=== PATIENT | male | born 1945 | race Caucasian/White ===

== ENCOUNTER 2016-08-09 20:45 | Emergency (ER) | payer MEDICARE, BC ==
[2016-08-09] MEDS ORDERED: Sodium Chloride 0.9% 10 ML Syringe FLUSH PRN (21:18)
[2016-08-09] MEDS ORDERED: Sodium Chloride 0.9% 1,000 ML IV ONE (21:18)
[2016-08-09] MEDS ORDERED: HYDROmorphone 0.5 MG/0.5 ML Syringe IVPUSH ONE (21:21)
--- NOTE | 2016-08-09 21:50 | EDM.PDOC ---
ED HPI GENERAL MEDICAL PROBLEM - General Time Seen by Provider: 08/09/16 20:50 Left Flank Pain Score (Numeric/FACES): 10 - Related Data Allergies Allergy/AdvReac Type Severity Reaction Status Date / Time No Known Allergies Allergy Verified 08/09/16 20:58 Home Meds: Home Meds Amantadine HCl [Amantadine] 100 mg PO BID 12/10/15 [History] Aspirin 325 mg PO DAILY 12/10/15 [History] Carbidopa/Levodopa [Sinemet 25-100 mg] 1 tab PO TIDM 12/10/15 [History] Carbidopa/Levodopa [Sinemet CR 50-200] 1 tab PO BID 12/10/15 [History] Chlorhexidine Gluconate [Peridex 0.12% Rinse] 10 ml MM BID 12/10/15 [History] Cholecalciferol (Vitamin D3) [Vitamin D3] 1,000 units PO DAILY 12/10/15 [History ] ClonazePAM [KlonoPIN] 0.5 mg PO BEDTIME 12/10/15 [History] Cyanocobalamin (Vitamin B-12) [Vitamin B12] 2,500 mcg PO DAILY 12/10/15 [History ] Levothyroxine [Synthroid] 100 mcg PO ACBREAKFAST 12/10/15 [History] Pramipexole Di-HCl [Mirapex] 0.75 mg PO BID 12/10/15 [History] Sertraline [Zoloft] 50 mg PO DAILY 12/10/15 [History] Vitamin B6-pyridOXINE 100 mg PO DAILY 12/10/15 [History] Vitamin E 400 unit PO BID 12/10/15 [History] Docusate Sodium/Sennosides [Senna Plus] 1 tab PO BID PRN #40 tablet 12/12/15 [Rx ] Cyclobenzaprine [Flexeril] 10 mg PO TID PRN #20 tablet 05/26/16 [Rx] Hydrocodone/Acetaminophen [Hydrocodon-Acetaminophen 5-325] 1 - 2 each PO Q6HR PRN #20 tablet 05/26/16 [Rx] Magnesium Citrate [Citrate of Magnesia] 296 ml PO ONETIME #1 bottle 08/09/16 [Rx ] Magnesium Citrate [Citrate of Magnesia] 296 ml PO ONETIME #1 bottle 08/09/16 [Rx ] Past Medical History Respiratory History: Reports: Sleep apnea Gastrointestinal History: Reports: Chronic constipation Musculoskeletal History: Reports: Back pain, chronic Neurological History: Reports: Parkinson's - Infectious Disease History Infectious Disease History: Reports: Chicken pox, Measles - Past Surgical History HEENT Surgical History: Reports: Cataract surgery Musculoskeletal Surgical History: Reports: Other (see below) Other Musculoskeletal Surgeries/Procedures:: recent back surgery Dec 2015 Social & Family History - Tobacco Use Smoking Status *Q: Never Smoker Years of Tobacco use: 20 Packs/Tins Daily: 0.4 Second Hand Smoke Exposure: No - Caffeine Use Caffeine Use: Reports: Coffee, Soda - Recreational Drug Use Recreational Drug Use: No ED ROS GENERAL - Review of Systems Review Of Systems: See Below Constitutional: Denies: fever, chills GI/Abdominal: Denies: Abdominal pain, Constipation, Diarrhea, Hematochezia, Melena, Nausea, Vomiting : Reports: flank pain (left), frequency. Denies: hematuria ED EXAM, RENAL/ - Physical Exam Exam: See Below Exam Limited By: No limitations General Appearance: alert, WD/WN, no apparent distress Nose: normal inspection Throat/Mouth: Normal inspection Respiratory/Chest: no respiratory distress, lungs clear, normal breath sounds Cardiovascular: normal peripheral pulses, regular rate, rhythm, no murmur GI/Abdominal: Soft, Non-Tender, Distended Neurological: alert, oriented, slow to respond Psychiatric: normal affect, normal mood Skin Exam: Warm, Dry Course - Vital Signs Last Recorded V/S: Last Vital Signs Temp 36.4 C 08/09/16 20:59 Pulse 57 L 08/09/16 23:05 Resp 16 08/09/16 20:59 BP 123/77 08/09/16 23:05 Pulse Ox 97 08/09/16 23:05 - Orders/Labs/Meds Labs: Laboratory Tests 08/09/16 08/09/16 08/09/16 Range/Units 21:40 21:40 22:38 WBC 10.91 H (4.23-9.07) K/mm3 RBC 4.34 L (4.63-6.08) M/mm3 Hgb 13.9 (13.7-17.5) gm/L Hct 40.9 (40.1-51.0) % MCV 94.2 H (79.0-92.2) fl MCH 32.0 (25.7-32.2) pg MCHC 34.0 (32.2-35.5) g/dl RDW Std Deviation 46.1 H (35.1-43.9) fL Plt Count 171 (163-337) K/mm3 MPV 8.9 L (9.4-12.3) fl Neut % (Auto) 52.0 (34.0-67.9) % Lymph % (Auto) 31.5 (21.8-53.1) % [place] % (Auto) 14.7 H (5.3-12.2) % Eos % (Auto) 1.1 (0.8-7.0) Baso % (Auto) 0.2 (0.1-1.2) % Neut # (Auto) 5.68 H (1.78-5.38) K/mm3 Lymph # (Auto) 3.44 (1.32-3.57) K/mm3 [place] # (Auto) 1.60 H (0.30-0.82) K/mm3 Eos # (Auto) 0.12 (0.04-0.54) K/mm3 Baso # (Auto) 0.02 (0.01-0.08) K/mm3 Manual Slide Review Normal smear Sodium 141 (136-145) mEq/L Potassium 4.0 (3.5-5.1) mEq/L Chloride 108 H (98-107) mEq/L Carbon Dioxide 25 (21-32) mEq/L Anion Gap 12.0 (5-15) BUN 28 H (7-18) mg/dL Creatinine 1.0 (0.7-1.3) mg/dL Est Cr Clr Drug Dosing 68.94 mL/min Estimated GFR (MDRD) > 60 (>60) mL/min BUN/Creatinine Ratio 28.0 H (14-18) Glucose 135 H (83-115) mg/dL Calcium 8.8 (8.5-10.1) mg/dL Total Bilirubin 0.4 (0.2-1.0) mg/dL AST 24 (15-37) U/L ALT 27 (16-63) U/L Alkaline Phosphatase 82 (46-116) U/L C-Reactive Protein 0.3 (<1.0) mg/dL Total Protein 6.1 L (6.4-8.2) g/dl Albumin 3.5 (3.4-5.0) g/dl Globulin 2.6 gm/dL Albumin/Globulin Ratio 1.4 (1-2) Urine Color Yellow (Yellow) Urine Appearance Clear (Clear) Urine pH 5.5 (5.0-8.0) Ur Specific [place] > or = 1.030 (1.005-1.030) Urine Protein Trace H (Negative) Urine Glucose (UA) Negative (Negative) Urine Ketones Negative (Negative) Urine Occult Blood 1+ H (Negative) Urine Nitrite Negative (Negative) Urine Bilirubin Negative (Negative) Urine Urobilinogen 2.0 H (0.2-1.0) Ur Leukocyte Esterase Negative (Negative) Urine RBC 5-10 H (0-5) /hpf Urine WBC 0-5 (0-5) /hpf Ur Epithelial Cells 0-5 (0-5) /hpf Ur Squamous Epith Cells 0-5 (0-5) /hpf Urine Bacteria Few (FEW) /hpf Urine Mucus Few (FEW) /hpf Meds: Medications Discontinued Medications Generic Name Dose Route Start Last Admin Trade Name Geovanyq PRN Reason Stop Dose Admin Hydromorphone HCl 0.5 mg 08/09/16 21:21 08/09/16 21:46 Dilaudid IVPUSH 08/09/16 21:22 0.5 mg ONETIME ONE Administration Sodium Chloride 1,000 mls @ 999 mls/hr 08/09/16 21:18 08/09/16 21:49 Normal Saline IV 08/09/16 22:18 999 mls/hr ONETIME ONE Administration Magnesium Citrate Confirm 08/09/16 23:17 Citrate Of Magnesia Administered 08/09/16 23:18 Dose 296 ml .ROUTE .STK-MED ONE Sodium Chloride 10 ml 08/09/16 21:18 08/09/16 21:53 Saline Flush FLUSH 10 ml ASDIRECTED PRN Administration Keep Vein Open - Radiology Interpretation Free Text/Narrative:: CT of the abdomen and pelvis without contrast impression per [facility]: Nonobstructing calculus lower pole kidney. There is no hydronephrosis. No definite renal or ureteral caluli are appreciated on the left. Scatter mildly prominent fluid filled small bowel loops noted in left lower quadrant with mild mucosal thickening, findings may be consistent with enteritis , correlate clinically. There is no obstruction. Question of fecal impaction correlate clinically. Wedge compression deformity T11 vertebral body level, age indeterminate , correlate with focal point tenderness in this area. CT Results Date: 08/09/16 - Re-Assessments/Exams Free Text/Narrative Re-Assessment/Exam: 08/09/16 22:16 Labs returned. sodium is 141, potassium is 4.0 and chloride is 108. Anion gap is 12.0. Glucose is 135 WBC is 10.91, hgb is 13.9, plts are 171 CRP is 0.[address]A [address] report. Reviewed labs with the patient and his . Pain has improved after Dilaudid. 08/09/16 22:[address] Nolan. Recommended mag citrate for the severe constipation and close follow-up with PCP. UA shows trace protein, 1+ blood and 2.0 urobiliogen. Discussed cT results with the patient and his . Will start magnesium citrate. Discharge instructions as documented. Departure - Departure Time of Disposition: 22:56 Disposition: Home, Self-Care 01 Clinical Impression: Constipation, Compression fracture - Discharge Information Prescriptions: Magnesium Citrate [Citrate of Magnesia] 296 ml PO ONETIME #1 bottle Magnesium Citrate [Citrate of Magnesia] 296 ml PO ONETIME #1 bottle Instructions: Constipation, Adult Referrals: Jefferson Klein MD [Primary Care Provider] - Forms: ED Department Discharge Additional Instructions: Tomorrow morning at drink half of the bottle mag citrate. If you do not have a large bowel movement within 12 hours drink the second half of the magnesium citrate. Drink plenty of fluids. Continue with your miralax daily. Recommend adding colace or another stool softener to your daily medications. Follow up with your primary care provider this week. Take [id number] Tylenol or Motrin as needed for pain relief. Please return to the ER should your symptoms change or worsen. ED HPI RENAL/ - General Chief Complaint: Flank Pain Stated Complaint: LEFT SIDE PAIN Time Seen by Provider: 08/09/16 20:50 Source of Information: Reports: Patient History Limitations: Reports: No limitations - History of Present Illness INITIAL COMMENTS - FREE TEXT/NARRATIVE: 71-year-old male presents for evaluation and treatment of left-sided flank pain. Patient reports left-sided flank pain that radiates into the left side of his back. Started about one week ago. Reports that it feels like a kidney stone. states he had a kidney stone in 2010 and had similar discomfort. He states that movement makes the pain worse. Rates the pain as a 4/10 currently. He states that he took some Tylenol and a painkiller he had at home around 6:30 this evening. States it did not help much with the pain. Patient reports associated symptoms of increased urinary frequency. He denies any fevers, chills , nausea, vomiting, abdominal pain, diarrhea, constipation, melena, hematochezia or hematuria. Reports his last bowel movement was today. Patient reports that in 2010 passed a kidney stone located on the left side. Reports he did not require intervention and passed on its own. Location: Reports: flank (left) - Related Data Allergies/ADRs: Allergies Allergy/AdvReac Type Severity Reaction Status Date / Time No Known Allergies Allergy Verified 08/09/16 20:58 Home Meds: Home Meds Amantadine HCl [Amantadine] 100 mg PO BID 12/10/15 [History] Aspirin 325 mg PO DAILY 12/10/15 [History] Carbidopa/Levodopa [Sinemet 25-100 mg] 1 tab PO TIDM 12/10/15 [History] Carbidopa/Levodopa [Sinemet CR 50-200] 1 tab PO BID 12/10/15 [History] Chlorhexidine Gluconate [Peridex 0.12% Rinse] 10 ml MM BID 12/10/15 [History] Cholecalciferol (Vitamin D3) [Vitamin D3] 1,000 units PO DAILY 12/10/15 [History ] ClonazePAM [KlonoPIN] 0.5 mg PO BEDTIME 12/10/15 [History] Cyanocobalamin (Vitamin B-12) [Vitamin B12] 2,500 mcg PO DAILY 12/10/15 [History ] Levothyroxine [Synthroid] 100 mcg PO ACBREAKFAST 12/10/15 [History] Pramipexole Di-HCl [Mirapex] 0.75 mg PO BID 12/10/15 [History] Sertraline [Zoloft] 50 mg PO DAILY 12/10/15 [History] Vitamin B6-pyridOXINE 100 mg PO DAILY 12/10/15 [History] Vitamin E 400 unit PO BID 12/10/15 [History] Docusate Sodium/Sennosides [Senna Plus] 1 tab PO BID PRN #40 tablet 12/12/15 [Rx ] Cyclobenzaprine [Flexeril] 10 mg PO TID PRN #20 tablet 05/26/16 [Rx] Hydrocodone/Acetaminophen [Hydrocodon-Acetaminophen 5-325] 1 - 2 each PO Q6HR PRN #20 tablet 05/26/16 [Rx] Magnesium Citrate [Citrate of Magnesia] 296 ml PO ONETIME #1 bottle 08/09/16 [Rx ] Magnesium Citrate [Citrate of Magnesia] 296 ml PO ONETIME #1 bottle 08/09/16 [Rx ] Departure - Departure Time of Disposition: 22:56 Disposition: Home, Self-Care 01 Condition: fair Clinical Impression: Constipation, Compression fracture Prescriptions: Magnesium Citrate [Citrate of Magnesia] 296 ml PO ONETIME #1 bottle Magnesium Citrate [Citrate of Magnesia] 296 ml PO ONETIME #1 bottle Instructions: Constipation, Adult Referrals: Jefferson Klein MD [Primary Care Provider] - Forms: ED Department Discharge Additional Instructions: Tomorrow morning at drink half of the bottle mag citrate. If you do not have a large bowel movement within 12 hours drink the second half of the magnesium citrate. Drink plenty of fluids. Continue with your miralax daily. Recommend adding colace or another stool softener to your daily medications. Follow up with your primary care provider this week. Take [id number] Tylenol or Motrin as needed for pain relief. Please return to the ER should your symptoms change or worsen.
[2016-08-09] MEDS ORDERED: Magnesium Citrate Solution 296 ML Bottle ONE (23:17)
[2016-08-09 23:48] VITALS: BP 123/77
--- NOTE | 2016-08-11 10:33 | CT ---
CT abdomen and pelvis Technique: Multiple axial sections were obtained from above the dome of the diaphragm inferiorly through the pubic symphysis. Intravenous and oral contrast was not utilized. Study was performed as a ureteral stone protocol. Findings: Nonobstructing stone noted within the right kidney measuring 9 mm. No other abnormal calcifications are seen within the kidneys. No ureteral dilatation or ureteral stone is seen. Visualized lung bases show nothing acute. Liver shows no discrete abnormality. Spleen appears within normal limits. Adrenal glands show no nodule. Pancreas shows no discrete abnormality. Gallbladder shows no calcified gallstones. Aorta shows atherosclerotic change. Mild distal ectasia is seen measuring 2.2 cm in AP dimension. Atherosclerotic calcification continues into the iliac vessels. Increased stool noted within the rectum. Increased stool also seen within other portions of the colon. Appendix is not definitely appreciated. Bone window settings shows scattered degenerative changes throughout the spine with numerous levels of vacuum phenomena within the lumbar spine. Minimal anterior wedging within T11 is seen. This is believed to be old. Several loops of small bowel showing fluid. No bowel dilatation is seen and findings are likely incidental. Impression: 1. Nonobstructing stone within the right kidney. No ureteral dilatation or ureteral stone is seen. 2. Increased stool within the colon and rectum. 3. Other findings as described above believed to be incidental. Diagnostic code #2 I agree with preliminary report issued by [facility] (preliminary report dictated on 08/09/16, 11:27 PM Central Time)
== END 2016-08-09 23:10 | disposition home or self-care (01) ==
LOC: JD.ED 20:45
DX: K59.00 Constipation, unspecified (principal); M48.54XA Collapsed vertebra, not elsewhere classified, thoracic region, initial encounter for fracture; G20 Parkinson's disease; Z79.899 Other long term (current) drug therapy; Z79.82 Long term (current) use of aspirin
CPT/HCPCS: 36415; 74176; 80053; 81001; 85025; 86140; 96361; 96374; 99284; J1170; J7040; J7050; 99283

== ENCOUNTER 2016-12-29 20:44 | Emergency (ER) | payer MEDICARE, BC ==
[2016-12-29] MEDS ORDERED: Sodium Chloride 0.9% 1,000 ML IV SCH (21:30)
[2016-12-29] MEDS ORDERED: Sodium Chloride 0.9% 10 ML Syringe FLUSH PRN (21:30)
[2016-12-29] MEDS ORDERED: HYDROmorphone 0.5 MG/0.5 ML Syringe IVPUSH ONE (21:34)
--- NOTE | 2016-12-29 23:37 | EDM.PDOC ---
ED HPI GENERAL MEDICAL PROBLEM - General Chief Complaint: Abdominal Pain Stated Complaint: BACK AND ABDOMINAL PAIN Time Seen by Provider: 12/29/16 21:04 Source of Information: Reports: Patient History Limitations: Reports: No Limitations - History of Present Illness INITIAL COMMENTS - FREE TEXT/NARRATIVE: The patient presents with right low back pain and lower abdominal pain. This started this morning at 9am. It has gotten worse through the day. He has no nausea or vomiting but he has no appetite. He has no fever, chills, cough, chest pain, or shortness of breath. He has inguinal hernia repair on the left side in September by Dr Pablo. He still has his appendix and gallbladder. He denies dysuria or hematuria. He has a history of kidney stones. He has no diarrhea. Onset: Gradual Duration: Hour(s): (since 9am) Location: Reports: Abdomen Quality: Reports: Sharp Severity: Moderate Improves with: Reports: None Worsens with: Reports: None Associated Symptoms: Reports: Loss of Appetite. Denies: Chest Pain, Cough, Fever/Chills, Nausea/Vomiting, Shortness of Breath Lower Abdomen Pain Score (Numeric/FACES): 9 - Related Data Allergies Allergy/AdvReac Type Severity Reaction Status Date / Time No Known Allergies Allergy Verified 12/29/16 20:51 Home Meds: Home Meds Amantadine HCl [Amantadine] 100 mg PO BID 12/10/15 [History] Aspirin 1,000 mg PO DAILY 12/10/15 [History] Carbidopa/Levodopa [Sinemet 25-100 mg] 1 tab PO TIDM 12/10/15 [History] Carbidopa/Levodopa [Sinemet CR 50-200] 1 tab PO TID 12/10/15 [History] Cholecalciferol (Vitamin D3) [Vitamin D3] 1,000 units PO DAILY 12/10/15 [History ] ClonazePAM [KlonoPIN] 0.5 mg PO BEDTIME 12/10/15 [History] Cyanocobalamin (Vitamin B-12) [Vitamin B12] 2,500 mcg PO DAILY 12/10/15 [History ] Levothyroxine [Synthroid] 100 mcg PO ACBREAKFAST 12/10/15 [History] Pramipexole Di-HCl [Mirapex] 1.5 mg PO BID 12/10/15 [History] Sertraline [Zoloft] 50 mg PO DAILY 12/10/15 [History] Vitamin B6-pyridOXINE 100 mg PO DAILY 12/10/15 [History] Vitamin E 400 unit PO BID 12/10/15 [History] Acetaminophen [Tylenol Extra Strength] 1,000 mg PO DAILY 12/29/16 [History] Aspirin/Acetaminophen/Caffeine [Hm Migraine Formula Caplet] 1 tab PO ASDIRECTED PRN 12/29/16 [History] [place]-3 Fatty Acids/Fish Oil [Fish Oil 1,000 mg Softgel] 1 tab PO DAILY [History] Polyethylene Glycol 3350 [Miralax] 1 dose PO DAILY 12/29/16 [History] Past Medical History HEENT History: Reports: Cataract, Hard of Hearing, Impaired Vision Respiratory History: Reports: Sleep Apnea Gastrointestinal History: Reports: Chronic Constipation Musculoskeletal History: Reports: Back Pain, Chronic Neurological History: Reports: Parkinson's Endocrine/Metabolic History: Reports: Hypothyroidism - Infectious Disease History Infectious Disease History: Reports: Chicken Pox, Measles - Past Surgical History HEENT Surgical History: Reports: Cataract Surgery GI Surgical History: Reports: Hernia, Abdominal Musculoskeletal Surgical History: Reports: Other (See Below) Social & Family History - Tobacco Use Smoking Status *Q: Never Smoker Years of Tobacco use: 20 Packs/Tins Daily: 0.4 Second Hand Smoke Exposure: No - Caffeine Use Caffeine Use: Reports: Coffee, Soda - Recreational Drug Use Recreational Drug Use: No ED ROS GENERAL - Review of Systems Review Of Systems: See Below Constitutional: Reports: No Symptoms HEENT: Reports: No Symptoms Respiratory: Reports: No Symptoms Cardiovascular: Reports: No Symptoms Endocrine: Reports: No Symptoms GI/Abdominal: Reports: Abdominal Pain, Anorexia. Denies: Nausea, Vomiting : Reports: No Symptoms Musculoskeletal: Reports: No Symptoms Skin: Reports: No Symptoms ED EXAM, GI/ABD - Physical Exam Exam: See Below Exam Limited By: No Limitations General Appearance: Alert, No Apparent Distress Ears: Normal External Exam Nose: Normal Inspection Head: Atraumatic, Normocephalic Neck: Normal Inspection Respiratory/Chest: No Respiratory Distress, Lungs Clear, Normal Breath Sounds Cardiovascular: Regular Rate, Rhythm, No Edema, No Murmur GI/Abdominal Exam: Soft, No Organomegaly, No Mass, Tender (Mild to moderate tenderness to the lower abdomen) Course - Vital Signs Last Recorded V/S: Last Vital Signs Temp 97.7 F 12/29/16 21:08 Pulse 85 12/29/16 23:49 Resp 18 12/29/16 23:49 BP 136/85 12/29/16 23:49 Pulse Ox 98 12/29/16 23:49 - Orders/Labs/Meds Orders: Active Orders 24 hr Category Date Time Status Peripheral IV Care [RC] . DIRECTED Care 12/29/16 21:31 Active Abdomen Pelvis wo Cont [CT] Stat Exams 12/29/16 21:30 Taken UA W/MICROSCOPIC [URIN] Stat Lab 12/30/16 00:01 Ordered Sodium Chloride 0.9% [Normal Saline] 1,000 ml Med 12/29/16 21:30 Active IV ASDIRECTED Sodium Chloride 0.9% [Saline Flush] Med 12/29/16 21:30 Active 10 ml FLUSH ASDIRECTED PRN Peripheral IV Insertion Adult [OM.PC] Stat Oth 12/29/16 21:30 Ordered Medication Orders Sodium Chloride (Normal Saline) 1,000 mls @ 125 mls/hr IV ASDIRECTED NIKKY Last Admin: 12/29/16 21:58 Dose: 125 mls/hr Sodium Chloride (Saline Flush) 10 ml FLUSH ASDIRECTED PRN PRN Reason: Keep Vein Open Last Admin: 12/29/16 21:58 Dose: 10 ml Labs: Laboratory Tests 12/29/16 12/29/16 Range/Units 22:00 22:00 WBC 9.39 H (4.23-9.07) K/mm3 RBC 4.46 L (4.63-6.08) M/mm3 Hgb 14.5 (13.7-17.5) gm/L Hct 41.9 (40.1-51.0) % MCV 93.9 H (79.0-92.2) fl MCH 32.5 H (25.7-32.2) pg MCHC 34.6 (32.2-35.5) g/dl RDW Std Deviation 45.5 H (35.1-43.9) fL Plt Count 173 (163-337) K/mm3 MPV 8.8 L (9.4-12.3) fl Neut % (Auto) 47.4 (34.0-67.9) % Lymph % (Auto) 31.0 (21.8-53.1) % [place] % (Auto) 17.3 H (5.3-12.2) % Eos % (Auto) 3.6 (0.8-7.0) Baso % (Auto) 0.3 (0.1-1.2) % Neut # (Auto) 4.45 (1.78-5.38) K/mm3 Lymph # (Auto) 2.91 (1.32-3.57) K/mm3 [place] # (Auto) 1.62 H (0.30-0.82) K/mm3 Eos # (Auto) 0.34 (0.04-0.54) K/mm3 Baso # (Auto) 0.03 (0.01-0.08) K/mm3 Manual Slide Review Normal smear Sodium 141 (136-145) mEq/L Potassium 3.8 (3.5-5.1) mEq/L Chloride 107 (98-107) mEq/L Carbon Dioxide 24 (21-32) mEq/L Anion Gap 13.8 (5-15) BUN 37 H (7-18) mg/dL Creatinine 1.2 (0.7-1.3) mg/dL Est Cr Clr Drug Dosing 55.64 mL/min Estimated GFR (MDRD) 60 (>60) mL/min BUN/Creatinine Ratio 30.8 H (14-18) Glucose 107 (83-115) mg/dL Calcium 8.8 (8.5-10.1) mg/dL Total Bilirubin 0.5 (0.2-1.0) mg/dL AST 20 (15-37) U/L ALT 20 (16-63) U/L Alkaline Phosphatase 67 (46-116) U/L Total Protein 6.4 (6.4-8.2) g/dl Albumin 3.6 (3.4-5.0) g/dl Globulin 2.8 gm/dL Albumin/Globulin Ratio 1.3 (1-2) Lipase 142 (73-393) U/L Meds: Medications Generic Name Dose Route Start Last Admin Trade Name Freq PRN Reason Stop Dose Admin Sodium Chloride 1,000 mls @ 125 mls/hr 12/29/16 21:30 12/29/16 21:58 Normal Saline IV 125 mls/hr ASDIRECTED NIKKY Administration Sodium Chloride 10 ml 12/29/16 21:30 12/29/16 21:58 Saline Flush FLUSH 10 ml ASDIRECTED PRN Administration Keep Vein Open Discontinued Medications Generic Name Dose Route Start Last Admin Trade Name Blas PRN Reason Stop Dose Admin Hydromorphone HCl 0.5 mg 12/29/16 21:34 12/29/16 21:58 Dilaudid IVPUSH 12/29/16 21:35 0.5 mg ONETIME ONE Administration - Re-Assessments/Exams Free Text/Narrative Re-Assessment/Exam: 12/30/16 00:14 I ordered an IV NS at 125mL/hr, dilaudid 0.5mg IV, labs, UA and a CT of his abdomen and pelvis. 12/30/16 00:15 His WBC was elevated at 9.39. His CMP and lipase were negative. The radiologist called me to let me know the patient has findings consistent with volvulus involving the sigmoid colon as well as small loops, with evidence for associated large bowel obstruction. No obstructive uropathy. I called out general surgeon bone puller Dr Fofana and he recommend I talk to [facility]. The patient requested [facility] so I called there and talked to Dr Dominguez the general surgeon bone puller and she recommended the patient go to the hospitalist service. I talked with Dr Guzman and he accepted the patient. Departure - Departure Time of Disposition: 00:25 Disposition: DC/Tfer to Acute Hospital 02 Condition: Serious Clinical Impression: Sigmoid volvulus - Discharge Information Referrals: Jefferson Klein MD [Primary Care Provider] - Forms: ED Department Discharge - My Orders Last 24 Hours: My Active Orders 12/29/16 21:30 Abdomen Pelvis wo Cont [CT] Stat Sodium Chloride 0.9% [Normal Saline] 1,000 ml IV ASDIRECTED Sodium Chloride 0.9% [Saline Flush] 10 ml FLUSH ASDIRECTED PRN Peripheral IV Insertion Adult [OM.PC] Stat 12/29/16 21:31 Peripheral IV Care [RC] . DIRECTED 12/30/16 00:01 UA W/MICROSCOPIC [URIN] Stat - Assessment/Plan Last 24 Hours: My Active Orders 12/29/16 21:30 Abdomen Pelvis wo Cont [CT] Stat Sodium Chloride 0.9% [Normal Saline] 1,000 ml IV ASDIRECTED Sodium Chloride 0.9% [Saline Flush] 10 ml FLUSH ASDIRECTED PRN Peripheral IV Insertion Adult [OM.PC] Stat 12/29/16 21:31 Peripheral IV Care [RC] . DIRECTED 12/30/16 00:01 UA W/MICROSCOPIC [URIN] Stat
[2016-12-29 23:49] VITALS: BP 136/85
[2016-12-30] MEDS ORDERED: Sodium Chloride 0.9% 1,000 ML IV SCH (00:30)
--- NOTE | 2016-12-30 07:33 | CT ---
CT abdomen and pelvis Technique: Multiple axial sections were obtained from above the dome of the diaphragm inferiorly through the pubic symphysis. Intravenous contrast was not utilized. Study performed as a ureteral stone protocol. Comparison: Previous noncontrast CT exam of 08/09/16. Findings: Sigmoid volvulus appears to be present. Distal sigmoid colon shows no dilatation. More proximal sigmoid colon shows dilatation with air. Increased stool is noted within the right colon and transverse colon. Visualized lung bases show nothing acute. Noncontrast appearance of liver and spleen appear within normal limits. Adrenal glands show no nodule. Stable calcification is seen within the right kidney measuring about 1 cm. Small low-density lesion is noted within the left kidney which is likely due to minimal cyst measuring 1 cm. No ureteral dilatation or ureteral stone is seen. Aorta shows atherosclerotic change which continues into the iliac vessels. Aorta shows minimal ectasia distally which is stable. Surgical clip is seen within the left upper pelvis. Calcification is seen within the prostate gland. No inflammatory change is seen. Scattered degenerative change is seen within the spine. Impression: 1. Volvulus within the sigmoid colon with increased gas seen proximally within the colon as well as increased stool within the right and transverse colon. This is an interval change from prior exam. 2. Nonobstructing stone within the right kidney. Incidental cyst within the left kidney. No ureteral dilatation or ureteral stone is seen. 3. Other incidental findings. Diagnostic code #5 Agree with preliminary report issued by [facility] ([facility] preliminary report dictated on 12/30/16, 12:24 AM Central Time)
== END 2016-12-30 00:57 ==
LOC: JD.ED 20:44
DX: K56.2 Volvulus (principal); G47.30 Sleep apnea, unspecified; E03.9 Hypothyroidism, unspecified; Z98.49 Cataract extraction status, unspecified eye; Z98.890 Other specified postprocedural states; Z79.82 Long term (current) use of aspirin; Z79.899 Other long term (current) drug therapy
CPT/HCPCS: 36415; 74176; 80053; 81001; 83690; 85025; 96361; 96374; 99285; J1170; J7040; J7050

== ENCOUNTER 2018-08-27 19:39 | Emergency (ER) | payer MEDICARE, BC ==
[2018-08-27 19:54] VITALS: BP 141/102
--- NOTE | 2018-08-27 20:37 | EDM.PDOC ---
ED HPI GENERAL MEDICAL PROBLEM - General Chief Complaint: Gastrointestinal Problem Stated Complaint: ABDOMINAL PAIN Time Seen by Provider: 08/27/18 20:04 Source of Information: Reports: Patient, Family History Limitations: Reports: No Limitations - History of Present Illness INITIAL COMMENTS - FREE TEXT/NARRATIVE: There is a 73-year-old male. He apparently has been having some abdominal pain and cramping over the last 24 hours. He got worried because he has a history of colon volvulus requiring resection some years ago and he's got 2 large hernias in his abdominal wall. He thinks it's the hernias that are bothering him. He does not appear to be in distress and is having no cramping pain presently. He did say that his urine, stung when he urinated today but he is drinking fluids. He's had no fever and no chills and no cough. He denies any other acute symptoms. He comes to the ER because he is afraid something bad is going on inside his abdomen. Patient has Parkinson's disease. Upper Abdomen Pain Score (Numeric/FACES): 5 - Related Data Allergies Allergy/AdvReac Type Severity Reaction Status Date / Time No Known Allergies Allergy Verified 12/29/16 20:51 Home Meds: Home Meds Amantadine HCl [Amantadine] 100 mg PO BID 12/10/15 [History] Aspirin 1,000 mg PO DAILY 12/10/15 [History] Carbidopa/Levodopa [Sinemet 25-100 mg] 1 tab PO TIDM 12/10/15 [History] Carbidopa/Levodopa [Sinemet CR 50-200] 1 tab PO TID 12/10/15 [History] Cholecalciferol (Vitamin D3) [Vitamin D3] 1,000 units PO DAILY 12/10/15 [History ] ClonazePAM [KlonoPIN] 0.5 mg PO BEDTIME 12/10/15 [History] Cyanocobalamin (Vitamin B-12) [Vitamin B12] 2,500 mcg PO DAILY 12/10/15 [History ] Levothyroxine [Synthroid] 100 mcg PO ACBREAKFAST 12/10/15 [History] Pramipexole Di-HCl [Mirapex] 1.5 mg PO BID 12/10/15 [History] Sertraline [Zoloft] 50 mg PO DAILY 12/10/15 [History] Vitamin B6-pyridOXINE 100 mg PO DAILY 12/10/15 [History] Vitamin E 400 unit PO BID 12/10/15 [History] Acetaminophen [Tylenol Extra Strength] 1,000 mg PO DAILY 12/29/16 [History] Aspirin/Acetaminophen/Caffeine [Hm Migraine Formula Caplet] 1 tab PO ASDIRECTED PRN 12/29/16 [History] [place]-3 Fatty Acids/Fish Oil [Fish Oil 1,000 mg Softgel] 1 tab PO DAILY [History] Polyethylene Glycol 3350 [Miralax] 1 dose PO DAILY 12/29/16 [History] Past Medical History HEENT History: Reports: Cataract, Hard of Hearing, Impaired Vision Respiratory History: Reports: Sleep Apnea Gastrointestinal History: Reports: Chronic Constipation Musculoskeletal History: Reports: Back Pain, Chronic Neurological History: Reports: Parkinson's Endocrine/Metabolic History: Reports: Hypothyroidism - Infectious Disease History Infectious Disease History: Reports: Chicken Pox, Measles - Past Surgical History HEENT Surgical History: Reports: Cataract Surgery GI Surgical History: Reports: Colostomy, Hernia, Abdominal Neurological Surgical History: Reports: Other (See Below) Other Neurological Surgeries/Procedures: spinal stimulator. Musculoskeletal Surgical History: Reports: Other (See Below) Social & Family History - Family History Family Medical History: Noncontributory - Tobacco Use Smoking Status *Q: Former Smoker Used Tobacco, but Quit: Yes Month/Year Tobacco Last Used: 2008 - Caffeine Use Caffeine Use: Reports: Coffee - Recreational Drug Use Recreational Drug Use: No ED ROS GENERAL - Review of Systems Review Of Systems: See Below Constitutional: Denies: Fever, Chills HEENT: Reports: Other (Typical flat facial expression of Parkinson disease) Respiratory: Reports: No Symptoms Cardiovascular: Reports: No Symptoms Endocrine: Reports: No Symptoms GI/Abdominal: Reports: Abdominal Pain, Other (Cramping abdominal pain). Denies : Constipation, Diarrhea, Nausea, Vomiting : Reports: No Symptoms Musculoskeletal: Reports: No Symptoms Skin: Reports: No Symptoms Neurological: Reports: Other (Features of Parkinson's disease) Psychiatric: Reports: No Symptoms Hematologic/Lymphatic: Reports: No Symptoms ED EXAM, GI/ABD - Physical Exam Exam: See Below Exam Limited By: No Limitations General Appearance: Alert, WD/WN, No Apparent Distress Eyes: Bilateral: Normal Appearance Ears: Normal External Exam Nose: Normal Inspection Throat/Mouth: Normal Inspection, Normal Lips, Normal Voice, No Airway Compromise , Other (Moist mucous membranes) Head: Normocephalic Neck: Other (Decreased range of motion of the neck secondary to Parkinson's.) Respiratory/Chest: No Respiratory Distress, Lungs Clear, Normal Breath Sounds Cardiovascular: Regular Rate, Rhythm, No Murmur GI/Abdominal Exam: Normal Bowel Sounds, Soft, Non-Tender, Other (He has a large hand size hernia in the right upper quadrant of the abdomen and he has a smaller syllable dollar sized hernia in the epigastric area, they're both easily reduced and soft he has no distention, palpation of the lower abdomen reveals no tenderness.) Back Exam: Other (Decreased range of motion of his skeletal system secondary to Parkinson's.) Extremities: Other (Mild cogwheel movement and slight resting tremor noted) Neurological: Alert, Oriented Psychiatric: Normal Affect, Normal Mood Skin Exam: Warm, Dry Course - Vital Signs Last Recorded V/S: Last Vital Signs Temp 98.5 F 08/27/18 19:48 Pulse 75 08/27/18 19:48 Resp 18 08/27/18 19:48 BP 141/102 H 08/27/18 19:48 Pulse Ox 97 08/27/18 19:48 - Orders/Labs/Meds Orders: Active Orders 24 hr Category Date Time Status Abdomen 2V AP Flat Upright [CR] Stat Exams 08/27/18 21:30 Taken Abdomen Pelvis w Cont [CT] Stat Exams 08/27/18 23:13 Taken Labs: Laboratory Tests 08/27/18 08/27/18 08/27/18 Range/Units 20:53 22:00 22:00 WBC 7.94 (4.23-9.07) K/mm3 RBC 4.97 (4.63-6.08) M/mm3 Hgb 15.8 (13.7-17.5) gm/L Hct 46.6 (40.1-51.0) % MCV 93.8 H (79.0-92.2) fl MCH 31.8 (25.7-32.2) pg MCHC 33.9 (32.2-35.5) g/dl RDW Std Deviation 45.8 H (35.1-43.9) fL Plt Count 181 (163-337) K/mm3 MPV 8.7 L (9.4-12.3) fl Neut % (Auto) 61.4 (34.0-67.9) % Lymph % (Auto) 18.3 L (21.8-53.1) % Sampson % (Auto) 17.5 H (5.3-12.2) % Eos % (Auto) 2.3 (0.8-7.0) Baso % (Auto) 0.1 (0.1-1.2) % Neut # (Auto) 4.88 (1.78-5.38) K/mm3 Lymph # (Auto) 1.45 (1.32-3.57) K/mm3 Sampson # (Auto) 1.39 H (0.30-0.82) K/mm3 Eos # (Auto) 0.18 (0.04-0.54) K/mm3 Baso # (Auto) 0.01 (0.01-0.08) K/mm3 Manual Slide Review Abnormal smear Sodium 142 (136-145) mEq/L Potassium 3.8 (3.5-5.1) mEq/L Chloride 106 (98-107) mEq/L Carbon Dioxide 22 (21-32) mEq/L Anion Gap 17.8 H (5-15) BUN 26 H (7-18) mg/dL Creatinine 0.9 (0.7-1.3) mg/dL Est Cr Clr Drug Dosing 72.01 mL/min Estimated GFR (MDRD) > 60 (>60) mL/min BUN/Creatinine Ratio 28.9 H (14-18) Glucose 94 (83-115) mg/dL Calcium 9.4 (8.5-10.1) mg/dL Total Bilirubin 0.7 (0.2-1.0) mg/dL AST 21 (15-37) U/L ALT 12 L (16-63) U/L Alkaline Phosphatase 101 (46-116) U/L Total Protein 6.9 (6.4-8.2) g/dl Albumin 4.0 (3.4-5.0) g/dl Globulin 2.9 gm/dL Albumin/Globulin Ratio 1.4 (1-2) Urine Color Yellow (Yellow) Urine Appearance Slt cloudy H (Clear) Urine pH 5.5 (5.0-8.0) Ur Specific [place] > or = 1.030 (1.005-1.030) Urine Protein 1+ H (Negative) Urine Glucose (UA) Negative (Negative) Urine Ketones Trace H (Negative) Urine Occult Blood 2+ H (Negative) Urine Nitrite Positive H (Negative) Urine Bilirubin Negative (Negative) Urine Urobilinogen 0.2 (0.2-1.0) Ur Leukocyte Esterase Trace H (Negative) Urine RBC 5-10 H (0-5) /hpf Urine WBC 20-30 H (0-5) /hpf Ur Squamous Epith Cells 0-5 (0-5) /hpf Calcium Oxalate Crystal Occasional H (NONE) Urine Bacteria Moderate H (FEW) /hpf Urine Mucus Moderate H (FEW) /hpf Meds: Medications Discontinued Medications Generic Name Dose Route Start Last Admin Trade Name Freq PRN Reason Stop Dose Admin Ceftriaxone Sodium 1 gm/ 100 mls @ 200 mls/hr 08/27/18 23:15 08/27/18 23:26 Sodium Chloride IV 08/27/18 23:44 200 mls/hr ONETIME ONE Administration Sodium Chloride 1,000 mls @ 100 mls/hr 08/28/18 01:15 08/28/18 01:19 Normal Saline IV 100 mls/hr ASDIRECTED NIKKY Administration Iohexol 100 ml 08/27/18 23:46 08/27/18 23:47 Omnipaque-300 IVPUSH 08/27/18 23:47 100 ml ONETIME ONE Administration - Re-Assessments/Exams Free Text/Narrative Re-Assessment/Exam: 08/27/18 23:15 I spoke to the patient and his regarding the x-ray results and the large colon and ileus. We were going to do an IV contrast abdomen and pelvis to make certain were not dealing with any other abdominal abnormalities other than the large megacolon and ileus. He does also have a urinary tract infection which I' ll give him some Rocephin IV. His white count appears to be normal. 08/28/18 01:[address] Hamlin at [facility] regarding the patient's CT scan. She agrees to accept the patient in transport to [facility] in [place]. I then spoke to the family regarding the transfer and they are good with this. The patient is been stable since he has been here with no additional vomiting though he did have one diarrheal-type bowel movement while in CT scan but none since. Since he is not vomiting will not put down an NG tube at this time. 08/28/18 02:28 The EMS crew arrived and packaged the patient to take down to [facility] in [place]. The patient has been stable since he has been here. He's had some nausea but no vomiting. He's had no more episodes of diarrhea. Departure - Departure Time of Disposition: 01:13 Disposition: DC/Tfer to Acute Hospital 02 Condition: Fair Clinical Impression: Large bowel obstruction, Parkinsons disease - Discharge Information *PRESCRIPTION DRUG MONITORING PROGRAM REVIEWED*: Not Applicable *COPY OF PRESCRIPTION DRUG MONITORING REPORT IN PATIENT YAW: Not Applicable ED Communication - ED Communication Date/Time Date: 08/28/18 Time Called: 01:12 - Discussed Case With (1) Discussed Case With (1): Admitting Provider Person/s Notified (1): Dr. Hamlin (She accepts the patient in transport to [facility]) - My Orders Last 24 Hours: My Active Orders 08/27/18 21:30 Abdomen 2V AP Flat Upright [CR] Stat 08/27/18 23:13 Abdomen Pelvis w Cont [CT] Stat - Assessment/Plan Last 24 Hours: My Active Orders 08/27/18 21:30 Abdomen 2V AP Flat Upright [CR] Stat 08/27/18 23:13 Abdomen Pelvis w Cont [CT] Stat
[2018-08-27] MEDS ORDERED: cefTRIAXone 1 GM in Sodium Chloride 0.9% 100 ML IV ONE (23:15)
[2018-08-27] MEDS ORDERED: Iohexol 647 MG/ML 100 ML Bottle IVPUSH ONE (23:46)
[2018-08-28] MEDS ORDERED: Sodium Chloride 0.9% 1,000 ML IV SCH (01:15)
--- NOTE | 2018-08-31 07:00 | CT ---
CT abdomen and pelvis Technique: Multiple axial sections were obtained from below the dome of the left diaphragm inferiorly to the pubic symphysis. Intravenous contrast was utilized. No oral contrast has been given. Comparison: Prior CT abdomen and pelvis study performed as a ureteral stone protocol dated 12/29/16. Findings: Gas dilated colon is seen. Previous surgery is noted within the sigmoid colon with anastomotic sutures. There appears to be some narrowing at this area of anastomosis. Proximal colonic dilatation may relate to obstruction from this finding. Liver contains no focal abnormality. Small portion of the visualized lung bases showed nothing acute. Elevated left hemidiaphragm is seen which contains loop of colon. Adrenal glands show no nodule. Visualized pancreas shows no discrete abnormality. Kidneys show a nonobstructing stone on the right side. Kidney shows symmetric contrast enhancement. Aorta shows atherosclerotic calcification which continues into the iliac vessels. No aneurysm is seen. No retroperitoneal adenopathy or mesenteric abnormalities are seen. Appendix not visualized. No pelvic mass or adenopathy is seen. No free fluid or inflammatory change is seen. Impression: 1. Gas dilated colon down to an area of anastomosis within the sigmoid colon. There appears to be narrowing at the anastomosis and proximal colonic dilatation may relate to this finding. 2. Other incidental findings as noted above. Diagnostic code #3 I agree with preliminary report from [facility], finalized on 08/28/18, 1:20 AM Central Time
--- NOTE | 2018-08-31 07:00 | CR ---
Abdomen: Supine and upright views of the abdomen were obtained. Comparison: Prior abdominal x-ray of 12/10/15. Gaseous dilatation of colon is seen. Previous abdominal surgery is noted. Electrostimulating device is seen within the lumbar spine. Air-fluid levels are seen within the colon on the upright view. Impression: 1. Gaseous dilatation of colon. Findings may represent low colonic obstruction or colonic ileus. 2. Other incidental findings. Diagnostic code #3
== END 2018-08-28 02:19 ==
LOC: JD.ED 19:39
DX: K56.609 Unspecified intestinal obstruction, unspecified as to partial versus complete obstruction (principal); G20 Parkinson's disease; E03.9 Hypothyroidism, unspecified; Z79.82 Long term (current) use of aspirin; Z79.899 Other long term (current) drug therapy; Z87.891 Personal history of nicotine dependence
CPT/HCPCS: 36415; 74019; 74177; 80053; 81001; 85025; 96361; 96365; 99285; J0696; J7030; J7040; Q9967

== ENCOUNTER 2020-11-30 19:15 | Emergency (ER) | payer MEDICARE, BC ==
[2020-11-30 19:46] VITALS: BP 147/96; PULSE 62
[2020-11-30] MEDS ORDERED: Ondansetron 4 MG/2 ML SDV IVPUSH ONE (20:52)
--- NOTE | 2020-11-30 20:57 | EDM.PDOC ---
ED HPI GENERAL MEDICAL PROBLEM - General Chief Complaint: Abdominal Pain Stated Complaint: HERNIA Time Seen by Provider: 11/30/20 20:37 Source of Information: Reports: Patient, Other (Ex-) History Limitations: Reports: No Limitations - History of Present Illness INITIAL COMMENTS - FREE TEXT/NARRATIVE: Mr. Blanco is a very pleasant 75-year-old gentleman who now presents the ED stating that he developed anterior abdominal pain this morning, which is progressively gotten worse. He then developed nausea with emesis around 19:15 tonight, around the time he arrived to the ED. He states that his last bowel movement was around 16:00 this afternoon. He does not know if he has had flatus since. He denies having urinary symptoms. No prior similar symptoms. The patient states that he took an antacid around 1900, which did not help with his symptoms. 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 Here in the ED tonight, the patient's initial BP is found to be mildly elevated at 147/96, otherwise, he is hemodynamically stable, afebrile, saturating 96% on room air. He does not appear to be in acute distress. Prior to this morning, the patient denies having a recent fever, chills, sore throat, ear pain, nasal or sinus congestion, cough, dyspnea, chest pain, palpitations, nausea, vomiting, constipation, diarrhea, abdominal pain, urinary symptoms, recent weight gain or weight loss, recent bloody bowel movements or black bowel movements, recent joint aches, headaches, or rashes. The patient's PCP is Dr. Jefferson Klein. His Colorectal Surgeon is Dr. Gavin Gray. His Neurologist is Dr. Manuel Kaur. His Urologist is Dr. Marlon Donaldson. The patient has received 2 COVID vaccinations. 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: Other (see below) Other Treatments WEB WORKER: anti acid Abdomen Pain Score (Numeric/FACES): 8 - Related Data Allergies Allergy/AdvReac Type Severity Reaction Status Date / Time No Known Allergies Allergy Verified 12/29/16 20:51 Home Meds: Home Meds Aspirin 1,000 mg PO DAILY 12/10/15 [History] Carbidopa/Levodopa [Sinemet 25-100 mg] 1 tab PO TIDM 12/10/15 [History] Carbidopa/Levodopa [Sinemet CR 50-200] 1 tab PO TID 12/10/15 [History] Cholecalciferol (Vitamin D3) [Vitamin D3] 1,000 units PO DAILY 12/10/15 [History] ClonazePAM [KlonoPIN] 0.5 mg PO BEDTIME 12/10/15 [History] Cyanocobalamin (Vitamin B-12) [Vitamin B12] 2,500 mcg PO DAILY 12/10/15 [History] Levothyroxine [Synthroid] 100 mcg PO ACBREAKFAST 12/10/15 [History] Pramipexole Di-HCl [Mirapex] 1.5 mg PO BID 12/10/15 [History] Sertraline [Zoloft] 50 mg PO DAILY 12/10/15 [History] Vitamin B6-pyridOXINE 100 mg PO DAILY 12/10/15 [History] Vitamin E 400 unit PO BID 12/10/15 [History] amantadine HCL [Amantadine] 100 mg PO BID 12/10/15 [History] Acetaminophen [Tylenol Extra Strength] 1,000 mg PO DAILY 12/29/16 [History] Aspirin/Acetaminophen/Caffeine [Hm Migraine Formula Caplet] 1 tab PO ASDIRECTED PRN 12/29/16 [History] [place]-3 Fatty Acids/Fish Oil [Fish Oil 1,000 mg Softgel] 1 tab PO DAILY 12/29/16 [History] polyethylene glycoL 3350 [Miralax] 1 dose PO DAILY 12/29/16 [History] Ondansetron [Zofran ODT] 1 tab PO Q8H PRN #10 tab.dis 10/10/18 [Rx] Famotidine [Pepcid] 20 mg PO 12/23/19 [History] Lactobacillus Acidophilus [Probiotic] 1 each PO 12/23/19 [History] Past Medical History HEENT History: Reports: Hard of Hearing, Impaired Vision Respiratory History: Reports: Sleep Apnea (noncompliant with nightly CPAP 14) Genitourinary History: Reports: Renal Calculus Musculoskeletal History: Reports: Back Pain, Chronic (lumbar stenosis), Other (See Below) (Scoliosis) Neurological History: Reports: Parkinson's Endocrine/Metabolic History: Reports: Hypothyroidism - Infectious Disease History Infectious Disease History: Reports: Chicken Pox, Measles - Past Surgical History HEENT Surgical History: Reports: Cataract Surgery (bilateral), Oral Surgery (dental extractions) GI Surgical History: Reports: Colon (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 Jan 2017, reversed Jul 2017), Hernia, Inguinal (left) Neurological Surgical History: Reports: Lumbar Spine (laminectomy Dec 2015), Other (See Below) (Spinal stimulator 08/04/2018) Social & Family History - Tobacco Use Tobacco Use Status *Q: Former Tobacco User Years of Tobacco use: 45 Packs/Tins Daily: 0.8 Month/Year Tobacco Last Used: Quit 2008 - Caffeine Use Caffeine Use: Reports: Coffee, Soda - Alcohol Use Alcohol Use History: Yes Alcohol Use Frequency: Socially - Recreational Drug Use Recreational Drug Use: No - Living Situation & Occupation Living situation: Reports: , Other (With ex-) Occupation: Retired ED ROS GENERAL - Review of Systems Review Of Systems: Comprehensive ROS is negative, except as noted in HPI. ED EXAM, GI/ABD - Physical Exam Exam: See Below Exam Limited By: No Limitations General Appearance: Alert, No Apparent Distress, Thin Eyes: Bilateral: Normal Appearance, EOMI Ears: Normal External Exam, Hearing Grossly Normal Nose: Normal Inspection Throat/Mouth: Normal Inspection, Normal Lips, Normal Voice, No Airway Compromise Head: Atraumatic, Normocephalic Neck: Normal Inspection, Full Range of Motion Respiratory/Chest: No Respiratory Distress, Lungs Clear, Normal Breath Sounds, No Accessory Muscle Use Cardiovascular: Normal Peripheral Pulses, Regular Rate, Rhythm, No Edema, No Gallop, No JVD, No Murmur, No Rub GI/Abdominal Exam: Soft, No Organomegaly, No Distention, No Abnormal Bruit, No Mass, Tender (Mild, central), Abnormal Bowel Sounds (diminished), Hernia (2 very large central abdominal wall hernias, each measuring approximately 5 to 6 cm in diameter, with easily-reduced intestinal contents) Back Exam: Normal Inspection, Full Range of Motion, NT Extremities: Normal Inspection, Normal Range of Motion, No Pedal Edema, Normal Capillary Refill Neurological: Alert, Oriented, Normal Cognition, No Motor/Sensory Deficits, Other (LUE Parkinsonian tremor) Psychiatric: Normal Affect Skin Exam: Warm, Dry, Intact, Normal Color, No Rash Course - Vital Signs Last Recorded V/S: Last Vital Signs Temp 35.9 C L 11/30/20 19:43 Pulse 62 11/30/20 19:43 Resp 20 11/30/20 19:43 BP 147/96 H 11/30/20 19:43 Pulse Ox 96 11/30/20 19:43 - Orders/Labs/Meds Orders: Active Orders 24 hr Category Date Time Status Gastrointestinal Tube Mgmt [RC] ASDIRECTED Care 11/30/20 23:52 Active Abdomen Pelvis w Cont [CT] Stat Exams 11/30/20 20:51 Taken Chest 1V Frontal [CR] Stat Exams 11/30/20 23:52 Taken Sodium Chloride 0.9% [Normal Saline] 1,000 ml Med 11/30/20 21:00 Active IV ASDIRECTED NG [Nasogastric Orogastric Tube Insertion] [OM.PC] Oth 11/30/20 23:52 Ordered Routine Medication Orders Sodium Chloride (Normal Saline) 1,000 mls @ 100 mls/hr IV ASDIRECTED NIKKY Last Admin: 11/30/20 21:13 Dose: 100 mls/hr Documented by: MAN Labs: Laboratory Tests 11/30/20 11/30/20 11/30/20 Range/Units 20:30 20:30 20:51 WBC 19.12 H (4.23-9.07) K/mm3 RBC 5.35 (4.63-6.08) M/mm3 Hgb 17.2 (13.7-17.5) gm/dl Hct 50.8 (40.1-51.0) % MCV 95.0 H (79.0-92.2) fl MCH 32.1 (25.7-32.2) pg MCHC 33.9 (32.2-35.5) g/dl RDW Std Deviation 46.9 H (35.1-43.9) fL Plt Count 210 (163-337) K/mm3 MPV 9.4 (9.4-12.3) fl Neutrophils % (Manual) 75 H (40-60) % Band Neutrophils % 0 (0-10) % Lymphocytes % (Manual) 20 (20-40) % Atypical Lymphs % 0 % Monocytes % (Manual) 5 (2-10) % Eosinophils % (Manual) 0 L (0.8-7.0) % Basophils % (Manual) 0 L (0.2-1.2) Platelet Estimate Adequate RBC Morph Comment Normal Sodium 144 (136-145) mEq/L Potassium 4.2 (3.5-5.1) mEq/L Chloride 106 (98-107) mEq/L Carbon Dioxide 29 (21-32) mEq/L Anion Gap 13.2 (5-15) BUN 20 H (7-18) mg/dL Creatinine 1.0 (0.7-1.3) mg/dL Est Cr Clr Drug Dosing 62.17 mL/min Estimated GFR (MDRD) > 60 (>60) mL/min BUN/Creatinine Ratio 20.0 H (14-18) Glucose 110 H (70-99) mg/dL Calcium 9.8 (8.5-10.1) mg/dL Magnesium 2.2 (1.8-2.4) mg/dL Total Bilirubin 0.8 (0.2-1.0) mg/dL AST 21 (15-37) U/L ALT 11 L (16-63) U/L Alkaline Phosphatase 73 (46-116) U/L Total Protein 7.7 (6.4-8.2) g/dl Albumin 4.7 (3.4-5.0) g/dl Globulin 3.0 gm/dL Albumin/Globulin Ratio 1.6 (1-2) Lipase 88 (73-393) U/L SARS-CoV-2 RNA (JACQUES) Negative (NEGATIVE) Meds: Medications Generic Name Dose Route Start Last Admin Trade Name Freq PRN Reason Stop Dose Admin Sodium Chloride 1,000 mls @ 100 mls/hr 11/30/20 21:00 11/30/20 21:13 Normal Saline IV 100 mls/hr ASDIRECTED NIKKY Administration Discontinued Medications Generic Name Dose Route Start Last Admin Trade Name Freq PRN Reason Stop Dose Admin Diatrizoate Meglum/Diatrizoate Sod 120 ml 11/30/20 21:36 11/30/20 22:05 Diatrizoate Meglumine/Diatrizoate Sodium 37% 120 Ml Bottle PO 11/30/20 21:37 60 ml ONETIME ONE Administration Hydromorphone HCl 0.25 mg 11/30/20 21:01 11/30/20 21:14 Hydromorphone 0.5 Mg/0.5 Ml Syringe IVPUSH 11/30/20 21:02 0.25 mg ONETIME STA Administration Hydromorphone HCl 0.25 mg 11/30/20 21:48 11/30/20 22:14 Hydromorphone 0.5 Mg/0.5 Ml Syringe IVPUSH 11/30/20 21:49 0.25 mg ONETIME STA Administration Hydromorphone HCl 0.5 mg 11/30/20 23:00 11/30/20 23:13 Hydromorphone 0.5 Mg/0.5 Ml Syringe IVPUSH 11/30/20 23:01 0.5 mg ONETIME STA Administration Iopamidol 100 ml 11/30/20 21:36 11/30/20 22:05 Iopamidol 612 Mg/Ml 100 Ml Bottle IVPUSH 11/30/20 21:37 100 ml ONETIME ONE Administration Ondansetron HCl 4 mg 11/30/20 20:52 11/30/20 21:14 Ondansetron 4 Mg/2 Ml Sdv IVPUSH 11/30/20 20:53 4 mg ONETIME ONE Administration Sodium Chloride 10 ml 11/30/20 21:36 11/30/20 22:06 Sodium Chloride 0.9% 10 Ml Sdv FLUSH 11/30/20 21:37 10 ml ONETIME ONE Administration - Re-Assessments/Exams Free Text/Narrative Re-Assessment/Exam: 11/30/20 20:53 As above, the patient has had progressively worsening central abdominal pain since this morning, then developed nausea and vomiting about the time he arrived to the ED. His last bowel movement was around 16:00, but he does not recall if he has had flatus since. He was concerned that his abdominal pain may be due to an incarcerated abdominal wall hernia, however, the patient has 2 very large abdominal wall hernias that are easily reducible, indeed, it is impossible that these would ever incarcerate, ever. On examination, he has diminished bowel sounds, leading to concern of a small bowel obstruction unrelated to the abdominal wall hernias, therefore I have ordered a work-up that includes several blood tests, a swab for the SARS-CoV-2 virus (in the event that the patient requires admission or surgery), and a CT of his abdomen and pelvis with oral and IV contrast. In the meantime, the patient will be given IV fluid and IV Zofran. He declined an offer for pain medication at this time. 11/30/20 21:02 Notified that the patient would like some pain medication after all. I have ordered IV Dilaudid 0.25 mg. 11/30/20 22:51 The patient's CBC is remarkable for modest leukocytosis of 19.12, but with 0% bandemia, and the remainder of his CBC being unremarkable. His CMP is remarkable for BUN slightly elevated 20, with a Cr normal at 1.0, and mild hyperglycemia of 110, with remainder of his CMP being unremarkable. His magnesium level is within normal limits at 2.2. His lipase level is within normal limits at 88. His swab for the SARS-CoV-2 virus is negative. Results of the CT of his abdomen and pelvis with oral and IV contrast is pending. 11/30/20 23:05 CT of the abdomen and pelvis with IV contrast (the patient was unable to tolerate oral contrast) is read by [facility] as: 1. Abnormal gas pattern. 2. Of concern is significant gastric dilatation with significant proximal small bowel dilatation. The distal small bowel is decompressed. Significant mid small bowel obstruction may be present. Precise etiology indeterminate. There is persistent broad-based eventration of the anterior abdominal wall. Small bowel and large bowel loops are seen in the area. It is unclear whether this is related to the presumed small-bowel obstruction or not. 3. The colon is diffusely distended as well to the rectum. Question superimposed colonic ileus. Distal colonic obstruction is considered less likely. The left colon is significantly dilated measuring nearly 11 cm transverse. This colonic pattern as been seen previously. [sic] 4. Right renal calculi. No hydronephrosis. 5. Subcentimeter low-density foci in both kidneys, statistically benign cysts are favored. No further work-up was recommended. 11/30/20 23:33 Test results discussed with the patient and his ex-. The patient denies having nausea, therefore I will forego placing an NG tube at this time, however, I am recommending admission to the hospital. Unfortunately, this facility is on diversion, therefore he will require transfer to [place]. The patient prefers [facility]. 11/30/20 23:48 Case discussed with Bishop at [facility] at 23:34. Case then discussed with Dr. Ferguson, Hospitalist at [facility], at 23:42. He recommended that we place an NG tube, and accepted the patient for admission to their facility. The patient will be transported by ground ambulance. CT images pushed to [facility] at 23:47. 12/01/20 00:51 Post-NG tube placement portable chest x-ray reviewed. The tip of the NG tube in the stomach via the esophagus. A spinal stimulator is visible. The stomach appears to be grossly distended. The cardiac silhouette is within normal limits. No pulmonary vascular congestion. No pleural effusions seen on this AP view. No focal infiltrate. No pneumothorax. Formal read per the Radiologist pending. 12/01/20 00:56 The portable chest x-ray image was pushed to [facility] at 00:56. Departure - Departure Time of Disposition: 23:49 Disposition: DC/Tfer to Acute Hospital 02 Condition: Good Clinical Impression: Small bowel obstruction - Discharge Information *PRESCRIPTION DRUG MONITORING PROGRAM REVIEWED*: Not Applicable *COPY OF PRESCRIPTION DRUG MONITORING REPORT IN PATIENT YAW: Not Applicable Referrals: Jefferson Klein MD [Primary Care Provider] - Gavin Gray MD [Ordering Only Provider] - Manuel Mendoza MD [Ordering Only Provider] - Marlon Donaldson MD [Ordering Only Provider] - Forms: ED Department Discharge Sepsis Event Note (ED) - Focused Exam Vital Signs: Vital Signs Temp Pulse Resp BP Pulse Ox 11/30/20 19:43 35.9 C L 62 20 147/96 H 96 - My Orders Last 24 Hours: My Active Orders 11/30/20 20:51 Abdomen Pelvis w Cont [CT] Stat 11/30/20 21:00 Sodium Chloride 0.9% [Normal Saline] 1,000 ml IV ASDIRECTED 11/30/20 23:52 Gastrointestinal Tube Mgmt [RC] ASDIRECTED Chest 1V Frontal [CR] Stat NG [Nasogastric Orogastric Tube Insertion] [OM.PC] Routine - Assessment/Plan Last 24 Hours: My Active Orders 11/30/20 20:51 Abdomen Pelvis w Cont [CT] Stat 11/30/20 21:00 Sodium Chloride 0.9% [Normal Saline] 1,000 ml IV ASDIRECTED 11/30/20 23:52 Gastrointestinal Tube Mgmt [RC] ASDIRECTED Chest 1V Frontal [CR] Stat NG [Nasogastric Orogastric Tube Insertion] [OM.PC] Routine
[2020-11-30] MEDS ORDERED: Sodium Chloride 0.9% 1,000 ML IV SCH (21:00)
[2020-11-30] MEDS ORDERED: HYDROmorphone 0.5 MG/0.5 ML Syringe IVPUSH STA ×3 (21:01→23:00)
[2020-11-30] MEDS ORDERED: Iopamidol 612 MG/ML 100 ML Bottle IVPUSH ONE (21:36)
[2020-11-30] MEDS ORDERED: Diatrizoate Meglumine/Diatrizoate Sodium 37% 120 ML Bottle PO ONE (21:36)
[2020-11-30] MEDS ORDERED: Sodium Chloride 0.9% 10 ML SDV FLUSH ONE (21:36)
--- NOTE | 2020-12-02 08:50 | CT ---
CT abdomen and pelvis Technique: Multiple axial sections were obtained from above the dome of the diaphragm inferiorly through the pubic symphysis. Intravenous contrast was utilized. Minimal oral contrast is seen which is within the stomach. Delayed images were obtained through the bladder. Reconstructed coronal and sagittal images were also obtained. Comparison: Prior CT abdomen and pelvis exam of 08/27/18. Findings: Visualized lung bases show nothing acute. Liver shows no focal abnormality. Spleen size is normal. Adrenal glands show no nodule. Pancreas appears to be atrophied. Gallbladder contains no calcified gallstones. Kidneys show small low density findings most likely representing small cysts. Right kidney shows a calcification measuring about 1.2 cm in size compatible with nonobstructing renal stone. Smaller adjacent calcification is also noted within the right kidney. Left kidney shows no abnormal calcifications. No hydronephrosis is seen within either kidney. Abdominal aorta shows atherosclerotic change. Distal aorta is ectatic. Atherosclerotic change continues into the iliac vessels. Calcification is seen within the prostate gland. Eventration of the anterior abdominal wall is seen which contains a bulging loop of air-filled bowel which is most likely colon. Stomach is somewhat dilated with contrast and air. Dilated proximal small bowel loops are noted. Distal small bowel appears collapsed. Findings are suspicious for possible small bowel obstruction which etiology is not appreciated and may relate to adhesions. There is increased stool seen within portions of the right and transverse colon. Dilated air-filled left colon is seen. Prior colonic surgery is noted. These findings are fairly stable from prior study presumably due to chronic ileus. Delayed images show contrast excretion into both ureters and within the bladder. Bone window settings were reviewed which show an electrostimulating device within the intrathecal thoracic spine. Scattered degenerative change is seen within the spine. Impression: 1. Dilated stomach and small bowel suspicious for mid small bowel obstruction. Etiology is not seen on this study and findings are most likely due to adhesion. 2. Mild increased stool within the right colon and transverse colon with increased gas being seen within the left colon. Left colonic gas is most likely due to chronic ileus. 3. Other chronic findings as noted above. Diagnostic code #3 I agree with preliminary report from [facility], finalized on 11/30/20, 11:53 PM CDT, code 1
--- NOTE | 2020-12-02 09:18 | CR ---
Chest: Frontal view of the chest was obtained. Comparison: No prior chest x-ray is available. Nasogastric tube is seen. Tip lies within the region of the stomach. Electrostimulating wires are seen projecting within the thoracic spine. Elevated left hemidiaphragm is seen. Minimal atelectasis is noted within the left lung base. Lungs otherwise are clear. Bony structures are osteopenic. Scattered increased gas within the abdomen is noted. Impression: 1. Tip of nasogastric tube within the stomach. 2. Mild increased gas within the abdomen. 3. Other incidental findings. Diagnostic code #3
== END 2020-12-01 01:15 ==
LOC: JD.ED 19:15
DX: K56.609 Unspecified intestinal obstruction, unspecified as to partial versus complete obstruction (principal); E03.9 Hypothyroidism, unspecified; Z79.82 Long term (current) use of aspirin; Z79.899 Other long term (current) drug therapy; Z87.891 Personal history of nicotine dependence; Z20.822 Contact with and (suspected) exposure to COVID-19
CPT/HCPCS: 36415; 43752; 71045; 74177; 80053; 83690; 83735; 85007; 85027; 96374; 96375; 96376; 99284; J1170; J2405; J7030; Q9963; Q9967; U0002; 99285

== ENCOUNTER 2020-12-23 23:30 | Emergency (ER) | payer MEDICARE, BC ==
[2020-12-24 00:23] VITALS: BP 128/82; PULSE 65
[2020-12-24] MEDS ORDERED: Ondansetron 4 MG/2 ML SDV IVPUSH ONE (00:30)
[2020-12-24] MEDS ORDERED: Sodium Chloride 0.9% 1,000 ML IV STA (00:30)
[2020-12-24] MEDS: Sodium Chloride 0.9% 10 ML Syringe FLUSH PRN ×2 (00:42→02:08)
[2020-12-24] MEDS ORDERED: Sodium Chloride 0.9% 10 ML SDV FLUSH ONE (02:07)
[2020-12-24] MEDS ORDERED: Diatrizoate Meglumine/Diatrizoate Sodium 37% 120 ML Bottle PO ONE (02:07)
[2020-12-24] MEDS ORDERED: Iopamidol 612 MG/ML 100 ML Bottle IVPUSH ONE (02:07)
--- NOTE | 2020-12-24 03:12 | EDM.PDOC ---
ED HPI GENERAL MEDICAL PROBLEM - General Chief Complaint: Abdominal Pain Stated Complaint: BLOATED/NAUSEA Time Seen by Provider: 12/24/20 00:23 Source of Information: Reports: Patient, Family History Limitations: Reports: No Limitations - History of Present Illness INITIAL COMMENTS - FREE TEXT/NARRATIVE: The patient presents for abdominal pain and nausea. The abdominal pain started at noon. He had some nausea that started later. He was able to drink a small soda at 4pm. The pain got worse tonight. He did not have a bowel movement for a couple days. 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 He had a reversal on July 2017. He now has 2 large ventral hernias. He would need an extensive surgery to repair the hernias so they have been holding off. He had a small bowel obstruction last month. Onset: Gradual Duration: Hour(s): Location: Reports: Abdomen Quality: Reports: Sharp Severity: Moderate Improves with: Reports: None Worsens with: Reports: None Associated Symptoms: Reports: Nausea/Vomiting. Denies: Chest Pain, Cough, Fever/Chills, Headaches, Shortness of Breath Abdominal Pain Score (Numeric/FACES): 5 - Related Data Allergies Allergy/AdvReac Type Severity Reaction Status Date / Time No Known Allergies Allergy Verified 12/24/20 00:23 Home Meds: Home Meds Carbidopa/Levodopa [Sinemet 25-100 mg] 1 tab PO TIDM 12/10/15 [History] Carbidopa/Levodopa [Sinemet CR 50-200] 1 tab PO TID 12/10/15 [History] ClonazePAM [KlonoPIN] 0.5 mg PO BEDTIME 12/10/15 [History] Levothyroxine [Synthroid] 100 mcg PO ACBREAKFAST 12/10/15 [History] Sertraline [Zoloft] 50 mg PO DAILY 12/10/15 [History] Vitamin E 400 unit PO BID 12/10/15 [History] amantadine HCL [Amantadine] 100 mg PO BID 12/10/15 [History] Aspirin/Acetaminophen/Caffeine [Hm Migraine Formula Caplet] 1 tab PO ASDIRECTED PRN 12/29/16 [History] polyethylene glycoL 3350 [Miralax] 1 dose PO DAILY 12/29/16 [History] Famotidine [Pepcid] 20 mg PO DAILY 12/23/19 [History] Lactobacillus Acidophilus [Probiotic] 1 each PO DAILY 12/23/19 [History] Past Medical History HEENT History: Reports: Hard of Hearing, Impaired Vision Cardiovascular History: Reports: None Respiratory History: Reports: Sleep Apnea Gastrointestinal History: Reports: Chronic Constipation Genitourinary History: Reports: Renal Calculus Musculoskeletal History: Reports: Back Pain, Chronic, Other (See Below) Neurological History: Reports: Parkinson's Psychiatric History: Reports: None Endocrine/Metabolic History: Reports: Hypothyroidism Hematologic History: Reports: None Immunologic History: Reports: None Oncologic (Cancer) History: Reports: None Dermatologic History: Reports: None - Infectious Disease History Infectious Disease History: Reports: Chicken Pox, Measles - Past Surgical History Head Surgeries/Procedures: Reports: None HEENT Surgical History: Reports: Cataract Surgery, Oral Surgery GI Surgical History: Reports: Colon, Hernia, Inguinal Neurological Surgical History: Reports: Lumbar Spine, Other (See Below) Other Neurological Surgeries/Procedures: spinal stimulator. Musculoskeletal Surgical History: Reports: Other (See Below) Other Musculoskeletal Surgeries/Procedures:: recent back surgery Dec 2015 Social & Family History - Family History Family Medical History: No Pertinent Family History - Tobacco Use Tobacco Use Status *Q: Never Tobacco User Second Hand Smoke Exposure: No - Caffeine Use Caffeine Use: Reports: None - Recreational Drug Use Recreational Drug Use: No - Living Situation & Occupation Living situation: Reports: , Other (With ex-) Occupation: Retired ED ROS GENERAL - Review of Systems Review Of Systems: See Below Constitutional: Reports: No Symptoms HEENT: Reports: No Symptoms Respiratory: Reports: No Symptoms Cardiovascular: Reports: No Symptoms Endocrine: Reports: No Symptoms GI/Abdominal: Reports: Abdominal Pain, Nausea. Denies: Vomiting : Reports: No Symptoms Musculoskeletal: Reports: No Symptoms ED EXAM, GI/ABD - Physical Exam Exam: See Below Exam Limited By: No Limitations General Appearance: Alert, No Apparent Distress Ears: Normal External Exam Nose: Normal Inspection Head: Atraumatic, Normocephalic Neck: Normal Inspection Respiratory/Chest: No Respiratory Distress, Lungs Clear, Normal Breath Sounds Cardiovascular: Regular Rate, Rhythm, No Edema, No Murmur GI/Abdominal Exam: Soft, Other (2 large ventral hernias with some tenderness near them. Hyperactive bowl sounds) Back Exam: Normal Inspection Extremities: Normal Inspection Course - Vital Signs Last Recorded V/S: Last Vital Signs Temp 96.9 F 12/24/20 00:22 Pulse 65 12/24/20 00:22 Resp 18 12/24/20 00:22 BP 128/82 12/24/20 00:22 Pulse Ox 96 12/24/20 00:22 - Orders/Labs/Meds Orders: Active Orders 24 hr Category Date Time Status Gastrointestinal Tube Mgmt [RC] ASDIRECTED Care 12/24/20 02:49 Active Peripheral IV Care [RC] . DIRECTED Care 12/24/20 00:31 Active Abdomen Pelvis w Cont [CT] Stat Exams 12/24/20 00:30 Taken Chest 1V Frontal [CR] Stat Exams 12/24/20 02:49 Taken UA W/MICROSCOPIC [URIN] Stat Lab 12/24/20 00:35 Ordered Sodium Chloride 0.9% [Saline Flush] Med 12/24/20 00:30 Active 10 ml FLUSH ASDIRECTED PRN ED Antiemetic Medication Reflex [OM.PC] Stat Oth 12/24/20 00:30 Ordered NG [Nasogastric Orogastric Tube Insertion] [OM.PC] Oth 12/24/20 02:48 Ordered Routine Nasogastric Orogastric Tube Insertion [OM.PC] Routine Oth 12/24/20 02:49 Ordered Peripheral IV Insertion Adult [OM.PC] Stat Oth 12/24/20 00:30 Ordered Medication Orders Sodium Chloride (Sodium Chloride 0.9% 10 Ml Syringe) 10 ml FLUSH ASDIRECTED PRN PRN Reason: Keep Vein Open Last Admin: 12/24/20 02:08 Dose: 10 ml Documented by: Admin: 12/24/20 00:42 Dose: 10 ml Documented by: AR Labs: Laboratory Tests 12/24/20 12/24/20 12/24/20 Range/Units 00:35 00:35 00:35 WBC 13.08 H (4.23-9.07) K/mm3 RBC 5.03 (4.63-6.08) M/mm3 Hgb 16.0 (13.7-17.5) gm/dl Hct 47.2 (40.1-51.0) % MCV 93.8 H (79.0-92.2) fl MCH 31.8 (25.7-32.2) pg MCHC 33.9 (32.2-35.5) g/dl RDW Std Deviation 45.3 H (35.1-43.9) fL Plt Count 258 (163-337) K/mm3 MPV 8.9 L (9.4-12.3) fl Neut % (Auto) 71.4 H (34.0-67.9) % Lymph % (Auto) 14.2 L (21.8-53.1) % [place] % (Auto) 12.5 H (5.3-12.2) % Eos % (Auto) 1.1 (0.8-7.0) Baso % (Auto) 0.2 (0.1-1.2) % Neut # (Auto) 9.32 H (1.78-5.38) K/mm3 Lymph # (Auto) 1.86 (1.32-3.57) K/mm3 [place] # (Auto) 1.64 H (0.30-0.82) K/mm3 Eos # (Auto) 0.15 (0.04-0.54) K/mm3 Baso # (Auto) 0.03 (0.01-0.08) K/mm3 Manual Slide Review Abnormal smear Sodium 139 (136-145) mEq/L Potassium 4.0 (3.5-5.1) mEq/L Chloride 104 (98-107) mEq/L Carbon Dioxide 26 (21-32) mEq/L Anion Gap 13.0 (5-15) BUN 24 H (7-18) mg/dL Creatinine 0.9 (0.7-1.3) mg/dL Est Cr Clr Drug Dosing 67.20 mL/min Estimated GFR (MDRD) > 60 (>60) mL/min BUN/Creatinine Ratio 26.7 H (14-18) Glucose 104 H (70-99) mg/dL Calcium 9.4 (8.5-10.1) mg/dL Total Bilirubin 0.7 (0.2-1.0) mg/dL AST 15 (15-37) U/L ALT 7 L (16-63) U/L Alkaline Phosphatase 77 (46-116) U/L Total Protein 7.0 (6.4-8.2) g/dl Albumin 4.1 (3.4-5.0) g/dl Globulin 2.9 gm/dL Albumin/Globulin Ratio 1.4 (1-2) Lipase 75 (73-393) U/L SARS-CoV-2 RNA (JACQUES) Positive H (NEGATIVE) Meds: Medications Generic Name Dose Route Start Last Admin Trade Name Blas PRN Reason Stop Dose Admin Sodium Chloride 10 ml 12/24/20 00:30 12/24/20 02:08 Sodium Chloride 0.9% 10 Ml Syringe FLUSH 10 ml ASDIRECTED PRN Administration Keep Vein Open Discontinued Medications Generic Name Dose Route Start Last Admin Trade Name Blas PRN Reason Stop Dose Admin Diatrizoate Meglum/Diatrizoate Sod 120 ml 12/24/20 02:07 12/24/20 02:07 Diatrizoate Meglumine/Diatrizoate Sodium 37% 120 Ml Bottle PO 12/24/20 02:08 120 ml ONETIME ONE Administration Sodium Chloride 1,000 mls @ 1,000 mls/hr 12/24/20 00:30 12/24/20 00:42 Normal Saline IV 12/24/20 01:29 1,000 mls/hr .BOLUS STA Administration Iopamidol 100 ml 12/24/20 02:07 12/24/20 02:07 Iopamidol 612 Mg/Ml 100 Ml Bottle IVPUSH 12/24/20 02:08 100 ml ONETIME ONE Administration Ondansetron HCl 4 mg 12/24/20 00:30 12/24/20 00:42 Ondansetron 4 Mg/2 Ml Sdv IVPUSH 12/24/20 00:31 4 mg ONETIME ONE Administration Sodium Chloride 10 ml 12/24/20 02:07 12/24/20 02:23 Sodium Chloride 0.9% 10 Ml Sdv FLUSH 12/24/20 02:08 10 ml ONETIME ONE Administration - Re-Assessments/Exams Free Text/Narrative Re-Assessment/Exam: 12/24/20 03:12 I ordered an IV NS 1L bolus, zofran 4mg IV, labs, UA and a CT of his abdomen and pelvis. His WBC was elevated at 13.08. His CMP looks good. His lipase was normal. His COVID 19 was positive. He denies any COVID symptoms now or early in the month. His CT shows high grade small bowel obstruction with dilation of the stomach, duodenum, and multiple loops of jejunum and abrupt transition point in the left abdomen, as above, possibly secondary to adhesions. Transition point is similar in location to the transition point identified on prior CT from 11/30/2020. Large amount of colonic and rectal stool consistent with constipation. Non-acute findings. I ordered an NG tube. 12/24/20 04:45 We have no beds here. I called [facility] in [place] and talked with the hospitalist quality control industrial engineer Dr Kaur and she accepted the patient. Departure - Departure Time of Disposition: 04:50 Disposition: DC/Tfer to Acute Hospital 02 Condition: Fair Clinical Impression: Small bowel obstruction - Discharge Information Referrals: Jefferson Klein MD [Primary Care Provider] - Forms: ED Department Discharge Sepsis Event Note (ED) - Focused Exam Vital Signs: Vital Signs Temp Pulse Resp BP Pulse Ox 12/24/20 00:22 96.9 F 65 18 128/82 96 - My Orders Last 24 Hours: My Active Orders 12/24/20 00:30 Abdomen Pelvis w Cont [CT] Stat Sodium Chloride 0.9% [Saline Flush] 10 ml FLUSH ASDIRECTED PRN ED Antiemetic Medication Reflex [OM.PC] Stat Peripheral IV Insertion Adult [OM.PC] Stat 12/24/20 00:31 Peripheral IV Care [RC] . DIRECTED 12/24/20 00:35 UA W/MICROSCOPIC [URIN] Stat 12/24/20 02:48 NG [Nasogastric Orogastric Tube Insertion] [OM.PC] Routine 12/24/20 02:49 Gastrointestinal Tube Mgmt [RC] ASDIRECTED Chest 1V Frontal [CR] Stat Nasogastric Orogastric Tube Insertion [OM.PC] Routine - Assessment/Plan Last 24 Hours: My Active Orders 12/24/20 00:30 Abdomen Pelvis w Cont [CT] Stat Sodium Chloride 0.9% [Saline Flush] 10 ml FLUSH ASDIRECTED PRN ED Antiemetic Medication Reflex [OM.PC] Stat Peripheral IV Insertion Adult [OM.PC] Stat 12/24/20 00:31 Peripheral IV Care [RC] . DIRECTED 12/24/20 00:35 UA W/MICROSCOPIC [URIN] Stat 12/24/20 02:48 NG [Nasogastric Orogastric Tube Insertion] [OM.PC] Routine 12/24/20 02:49 Gastrointestinal Tube Mgmt [RC] ASDIRECTED Chest 1V Frontal [CR] Stat Nasogastric Orogastric Tube Insertion [OM.PC] Routine
--- NOTE | 2020-12-24 08:31 | CR ---
Chest: Frontal view of the chest was obtained. Comparison: Prior chest x-ray of 12/01/20. Intrathoracic extension of the stomach is noted. Previous electrostimulating device is seen within the thoracic spine. Nasogastric tube is seen with tip lying within the stomach. No coiling of the NG tube is seen. Slight atelectasis is noted above the left hemidiaphragm. Lungs otherwise are clear. Heart size and mediastinum are stable. Impression: 1. Nasogastric tube with tip lying within the stomach. 2. Other stable findings as noted above. Diagnostic code #3
--- NOTE | 2020-12-24 08:35 | CT ---
CT abdomen and pelvis Technique: Multiple axial sections were obtained from above the dome of the diaphragm inferiorly through the pubic symphysis. Intravenous contrast was utilized. Oral contrast was utilized which remains mostly within the stomach and duodenum. Reconstructed coronal and sagittal images were obtained. Delayed images were also obtained through the pelvis. Comparison: Prior CT abdomen and pelvis exam of 11/30/20. Findings: Visualized lung bases show nothing acute. Stomach is intrathoracic in location. This appears stable from prior study and presumably is due to diaphragmatic eventration. Stomach is also slightly dilated and contains contrast and air. Small amount of contrast is also noted within the duodenum. Duodenum is prominent in size within its distal aspect as well as prominence within other portions of the jejunum and proximal ileum. Distal ileum shows no dilatation. Findings are felt compatible with fairly high-grade obstruction most likely representing nonvisualized adhesions. Findings are fairly stable from prior exam. Colon is dilated containing air and stool. Anterior abdominal hernia is seen which contains a loop of colon. There is also additional herniation within the anterior abdominal wall containing a loop of dilated small bowel. These findings are also felt to be stable but more noticeable on current study. Kidneys show symmetric contrast enhancement. Small low density findings are seen within both kidneys compatible with small cysts. Nonobstructing calculi are seen within the right kidney which appears stable. Abdominal aorta shows no aneurysm. No retroperitoneal adenopathy is seen. Scattered atherosclerotic change is seen which continues into the iliac vessels. Electrostimulating device is seen within the right abdomen which terminates within the thoracic spine. No pelvic mass or adenopathy is seen. Small partial fat containing right inguinal hernia is noted which contains a small outpouching of the bladder. Prostate calcifications are noted. Appendix is seen and is normal in size. Bone window settings were reviewed which show diffuse and prominent degenerative changes within the spine. Scoliosis is also present within the spine. Degenerative change is also noted within both hips. Delayed images show contrast within the ureters. No significant contrast is noted within the bladder which is likely incidental. Impression: 1. Dilated duodenum and jejunum as well as possible proximal ileus. Findings are felt compatible with fairly high-grade small bowel obstruction. Etiology is not identified and is most likely due to adhesion. Findings are fairly stable from prior CT exam. 2. Mildly dilated colon which contains air and gas which is most likely due to colonic ileus. 3. Other findings as described above which also remained stable and appear to be chronic. Diagnostic code #3 I agree with preliminary report from Natasha, finalized on 12/24/20, 3:28 AM CDT, code 2
== END 2020-12-24 05:05 ==
LOC: JD.ED 23:30
DX: K56.609 Unspecified intestinal obstruction, unspecified as to partial versus complete obstruction (principal); U07.1 COVID-19; E03.9 Hypothyroidism, unspecified; Z79.899 Other long term (current) drug therapy; Z79.82 Long term (current) use of aspirin
CPT/HCPCS: 36415; 71045; 74177; 80053; 83690; 85025; 96374; 99285; J2405; J7030; Q9963; Q9967; U0002

== ENCOUNTER 2021-02-22 10:00 | Observation (INO) | payer MEDICARE, BC ==
[2021-02-22] MEDS ORDERED: Iopamidol 612 MG/ML 100 ML Bottle IVPUSH ONE (10:50)
[2021-02-22] MEDS: Sodium Chloride 0.9% 10 ML Syringe FLUSH PRN ×2 (10:59→11:59)
--- NOTE | 2021-02-22 11:18 | EDM.PDOC ---
ED HPI GENERAL MEDICAL PROBLEM - General Chief Complaint: Abdominal Pain Stated Complaint: ABDOMINAL PAIN Time Seen by Provider: 02/22/21 11:13 Source of Information: Reports: Patient, Family History Limitations: Reports: No Limitations - History of Present Illness INITIAL COMMENTS - FREE TEXT/NARRATIVE: Patient is a 75-year-old male with a past medical history of Parkinson's disease also with a history of bowel obstruction recurrent and colostomy but has been reversed. Patient is here with a chief complaint of abdominal discomfort and feeling of bloating. He states his symptoms started yesterday. He states he is unable to pass stool or flatus. He reports no nausea or vomiting at home. Reports some fullness sensation but no significant pain in his abdomen. The wif e notes that she thinks the left hernia that he has is more hard than usual. Therefore, they came into the emergency room. Patient otherwise denies fevers, chills, chest pain, shortness of breath, abdominal trauma or recent illnesses. Lower Abdominal Pain Score (Numeric/FACES): 7 - Related Data Allergies Allergy/AdvReac Type Severity Reaction Status Date / Time No Known Allergies Allergy Verified 02/22/21 10:22 Home Meds: Home Meds Carbidopa/Levodopa [Sinemet 25-100 mg] 1 tab PO 5XDAY 12/10/15 [History] ClonazePAM [KlonoPIN] 0.5 mg PO BEDTIME 12/10/15 [History] Levothyroxine [Synthroid] 100 mcg PO ACBREAKFAST 12/10/15 [History] Sertraline [Zoloft] 50 mg PO DAILY 12/10/15 [History] Vitamin E 400 unit PO BID 12/10/15 [History] amantadine HCL [Amantadine] 100 mg PO BID 12/10/15 [History] Aspirin/Acetaminophen/Caffeine [Hm Migraine Formula Caplet] 1 tab PO ASDIRECTED PRN 12/29/16 [History] polyethylene glycoL 3350 [Miralax] 1 dose PO DAILY 12/29/16 [History] Lactobacillus Acidophilus [Probiotic] 1 each PO DAILY 12/23/19 [History] Past Medical History HEENT History: Reports: Hard of Hearing, Impaired Vision Cardiovascular History: Reports: None Respiratory History: Reports: Sleep Apnea Gastrointestinal History: Reports: Chronic Constipation Genitourinary History: Reports: Renal Calculus Musculoskeletal History: Reports: Back Pain, Chronic, Other (See Below) Neurological History: Reports: Parkinson's Psychiatric History: Reports: None Endocrine/Metabolic History: Reports: Hypothyroidism Hematologic History: Reports: None Immunologic History: Reports: None Oncologic (Cancer) History: Reports: None Dermatologic History: Reports: None - Infectious Disease History Infectious Disease History: Reports: Chicken Pox, Measles - Past Surgical History Head Surgeries/Procedures: Reports: None HEENT Surgical History: Reports: Cataract Surgery, Oral Surgery GI Surgical History: Reports: Colon, Hernia, Inguinal Neurological Surgical History: Reports: Lumbar Spine, Other (See Below) Other Neurological Surgeries/Procedures: spinal stimulator. Musculoskeletal Surgical History: Reports: Other (See Below) Other Musculoskeletal Surgeries/Procedures:: recent back surgery Dec 2015 Social & Family History - Family History Family Medical History: No Pertinent Family History - Tobacco Use Tobacco Use Status *Q: Former Tobacco User Used Tobacco, but Quit: Yes Month/Year Tobacco Last Used: 1999 - Caffeine Use Caffeine Use: Reports: None - Recreational Drug Use Recreational Drug Use: No - Living Situation & Occupation Living situation: Reports: , Other (With ex-) Occupation: Retired ED ROS GENERAL - Review of Systems Review Of Systems: See Below Free Text/Narrative/Comment: In addition to that documented in the HPI above, the additional ROS was obtained: Constitutional: Denies fevers or chills Eyes: Denies vision changes ENMT: Denies sore throat CV: Denies chest pain Resp: Denies SOB GI: Denies vomiting or diarrhea : Denies painful urination MSK: Denies recent trauma Skin: Denies new rashes Neuro: Denies new numbness or tingling or weakness Endocrine: Denies unexpected weight loss Heme: Denies bleeding disorders ED EXAM, GI/ABD - Physical Exam Exam: See Below Text/Narrative:: I have reviewed the triage vital signs Const: Well nourished, well developed, appears stated age Eyes: Pupils Equal and reactive to light bilaterally, no conjunctival injection HENT: No signs of trauma or swelling, Neck supple without meningismus CV: Regular Rate Rhythm, Warm, well-perfused extremities RESP: Unlabored respiratory effort GI: 2 large abdominal hernias noted along with scarring from previous surgeries. These hernias are soft to the touch not demonstrating overlying erythema and can be reduced. Otherwise, his exam demonstrates soft abdomen, non-tender, non- distended, no masses MSK: No gross deformities appreciated Skin: Warm, dry. No rashes Neuro: Bilateral upper extremity tremor noted at rest. 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 Sensation and motor function of extremities grossly intact. Psych: Appropriate mood and affect. Course - Vital Signs Last Recorded V/S: Last Vital Signs Temp 36.6 C 02/22/21 12:13 Pulse 58 L 02/22/21 12:13 Resp 16 02/22/21 10:16 BP 126/79 02/22/21 12:13 Pulse Ox 100 02/22/21 12:13 - Orders/Labs/Meds Orders: Active Orders 24 hr Category Date Time Status Admission Status [Patient Status] [ADT] Routine ADT 02/22/21 12:37 Active Dextrose 5%-Lactated Ringers 1,000 ml Med 02/22/21 12:45 Active IV ASDIRECTED Sodium Chloride 0.9% [Saline Flush] Med 02/22/21 10:50 Active 10 ml FLUSH ONETIME PRN Medication Orders Dextrose/Lactated Ringer's (Dextrose 5%-Lactated Ringers) 1,000 mls @ 100 mls/hr IV ASDIRECTED NIKKY Last Admin: 02/22/21 12:51 Dose: 100 mls/hr Documented by: JANNY Sodium Chloride (Sodium Chloride 0.9% 10 Ml Syringe) 10 ml FLUSH ONETIME PRN PRN Reason: IV FLUSH Last Admin: 02/22/21 11:59 Dose: 10 ml Documented by: Admin: 02/22/21 10:59 Dose: 10 ml Documented by: MISTY Labs: Laboratory Tests 02/22/21 02/22/21 02/22/21 Range/Units 10:55 10:55 10:55 WBC 6.68 (4.23-9.07) K/mm3 RBC 4.69 (4.63-6.08) M/mm3 Hgb 15.1 (13.7-17.5) gm/dl Hct 45.3 (40.1-51.0) % MCV 96.6 H (79.0-92.2) fl MCH 32.2 (25.7-32.2) pg MCHC 33.3 (32.2-35.5) g/dl RDW Std Deviation 47.6 H (35.1-43.9) fL Plt Count 168 D (163-337) K/mm3 MPV 9.2 L (9.4-12.3) fl Neut % (Auto) 55.8 (34.0-67.9) % Lymph % (Auto) 23.4 (21.8-53.1) % Hardeman % (Auto) 17.7 H (5.3-12.2) % Eos % (Auto) 2.4 (0.8-7.0) Baso % (Auto) 0.3 (0.1-1.2) % Neut # (Auto) 3.73 (1.78-5.38) K/mm3 Lymph # (Auto) 1.56 (1.32-3.57) K/mm3 Hardeman # (Auto) 1.18 H (0.30-0.82) K/mm3 Eos # (Auto) 0.16 (0.04-0.54) K/mm3 Baso # (Auto) 0.02 (0.01-0.08) K/mm3 PT 11.4 (9.7-12.0) SECONDS INR 1.03 Sodium 144 (136-145) mEq/L Potassium 4.1 (3.5-5.1) mEq/L Chloride 105 (98-107) mEq/L Carbon Dioxide 28 (21-32) mEq/L Anion Gap 15.1 H (5-15) BUN 27 H (7-18) mg/dL Creatinine 0.9 (0.7-1.3) mg/dL Est Cr Clr Drug Dosing 67.20 mL/min Estimated GFR (MDRD) > 60 (>60) mL/min BUN/Creatinine Ratio 30.0 H (14-18) Glucose 99 (70-99) mg/dL Lactic Acid (0.4-2.0) mmol/L Calcium 9.2 (8.5-10.1) mg/dL Total Bilirubin 0.6 (0.2-1.0) mg/dL AST 15 (15-37) U/L ALT 9 L (16-63) U/L Alkaline Phosphatase 65 (46-116) U/L Total Protein 6.2 L (6.4-8.2) g/dl Albumin 4.0 (3.4-5.0) g/dl Globulin 2.2 gm/dL Albumin/Globulin Ratio 1.8 (1-2) Lipase 57 L (73-393) U/L 02/22/21 Range/Units 10:55 WBC (4.23-9.07) K/mm3 RBC (4.63-6.08) M/mm3 Hgb (13.7-17.5) gm/dl Hct (40.1-51.0) % MCV (79.0-92.2) fl MCH (25.7-32.2) pg MCHC (32.2-35.5) g/dl RDW Std Deviation (35.1-43.9) fL Plt Count (163-337) K/mm3 MPV (9.4-12.3) fl Neut % (Auto) (34.0-67.9) % Lymph % (Auto) (21.8-53.1) % Hardeman % (Auto) (5.3-12.2) % Eos % (Auto) (0.8-7.0) Baso % (Auto) (0.1-1.2) % Neut # (Auto) (1.78-5.38) K/mm3 Lymph # (Auto) (1.32-3.57) K/mm3 Hardeman # (Auto) (0.30-0.82) K/mm3 Eos # (Auto) (0.04-0.54) K/mm3 Baso # (Auto) (0.01-0.08) K/mm3 PT (9.7-12.0) SECONDS INR Sodium (136-145) mEq/L Potassium (3.5-5.1) mEq/L Chloride (98-107) mEq/L Carbon Dioxide (21-32) mEq/L Anion Gap (5-15) BUN (7-18) mg/dL Creatinine (0.7-1.3) mg/dL Est Cr Clr Drug Dosing mL/min Estimated GFR (MDRD) (>60) mL/min BUN/Creatinine Ratio (14-18) Glucose (70-99) mg/dL Lactic Acid 1.7 (0.4-2.0) mmol/L Calcium (8.5-10.1) mg/dL Total Bilirubin (0.2-1.0) mg/dL AST (15-37) U/L ALT (16-63) U/L Alkaline Phosphatase (46-116) U/L Total Protein (6.4-8.2) g/dl Albumin (3.4-5.0) g/dl Globulin gm/dL Albumin/Globulin Ratio (1-2) Lipase (73-393) U/L Meds: Medications Generic Name Dose Route Start Last Admin Trade Name Freq PRN Reason Stop Dose Admin Dextrose/Lactated Ringer's 1,000 mls @ 100 mls/hr 02/22/21 12:45 02/22/21 12:51 Dextrose 5%-Lactated Ringers IV 100 mls/hr ASDIRECTED NIKKY Administration Sodium Chloride 10 ml 02/22/21 10:50 02/22/21 11:59 Sodium Chloride 0.9% 10 Ml Syringe FLUSH 10 ml ONETIME PRN Administration IV FLUSH Discontinued Medications Generic Name Dose Route Start Last Admin Trade Name Freq PRN Reason Stop Dose Admin Iopamidol 100 ml 02/22/21 10:50 02/22/21 11:59 Iopamidol 612 Mg/Ml 100 Ml Bottle IVPUSH 02/22/21 10:51 100 ml ONETIME ONE Administration Morphine Sulfate 2 mg 02/22/21 12:36 02/22/21 12:51 Morphine 2 Mg/Ml Syringe IVPUSH 02/22/21 12:37 2 mg ONETIME ONE Administration Departure - Departure Time of Disposition: 12:20 Disposition: Admitted As Inpatient 65 Clinical Impression: Small bowel obstruction - Discharge Information Referrals: Jefferson Klein MD [Primary Care Provider] - Forms: ED Department Discharge Sepsis Event Note (ED) - Focused Exam Vital Signs: Vital Signs Temp Pulse Resp BP Pulse Ox 02/22/21 12:13 36.6 C 58 L 126/79 100 02/22/21 10:16 36.3 C 61 16 140/88 95 - My Orders Last 24 Hours: My Active Orders 02/22/21 10:50 Sodium Chloride 0.9% [Saline Flush] 10 ml FLUSH ONETIME PRN 02/22/21 12:37 Admission Status [Patient Status] [ADT] Routine 02/22/21 12:45 Dextrose 5%-Lactated Ringers 1,000 ml IV ASDIRECTED - Assessment/Plan Last 24 Hours: My Active Orders 02/22/21 10:50 Sodium Chloride 0.9% [Saline Flush] 10 ml FLUSH ONETIME PRN 02/22/21 12:37 Admission Status [Patient Status] [ADT] Routine 02/22/21 12:45 Dextrose 5%-Lactated Ringers 1,000 ml IV ASDIRECTED Assessment:: Patient 75-year-old male presenting to the emergency room with a complaint of abdominal discomfort. Evaluation in the emergency room was relatively benign. He was nontoxic in appearance. No active vomiting. Laboratory studies performed did not demonstrate any evidence of bowel ischemia such as elevated lactic acid or white blood cell count elevation. Differential diagnosis considered for this patient please small bowel obstruction, strangulated hernia, pancreatitis, perforated peptic ulcer. Patient had CT scan which demonstrates partial small bowel obstruction. I did discuss the case with general surgery on-call, Dr. Tavera, who agreed to accept patient for observation status in the hospital.
--- NOTE | 2021-02-22 12:11 | CT ---
CT abdomen and pelvis Technique: Multiple axial sections were obtained from above the dome of the diaphragm inferiorly through the pubic symphysis. Intravenous contrast was utilized. Additional portal phase imaging was obtained through portions of the abdomen and pelvis. Reconstructed coronal and sagittal images were obtained. Comparison: Prior CT abdomen and pelvis study on 12/24/20. Findings: Visualized lung bases show nothing acute. Right hemidiaphragm is elevated. Air-filled splenic flexure is seen beneath the hemidiaphragm likely representing an ileus. Stool is noted within portions of the transverse and right colon as well as prominent stool within the rectum. There is fluid seen within mildly dilated small bowel loops suspicious for a mild partial small bowel obstruction, possibly due to adhesion. Liver shows no focal abnormality. Spleen size is within normal limits. Adrenal glands show no discrete abnormality. Kidneys show symmetric contrast enhancement. Left kidney shows several small cysts. Nonobstructing calculus is noted within the right kidney measuring 1.0 cm. Pancreas shows no discrete abnormality. Abdominal aorta shows ectasia with no aneurysm. No retroperitoneal adenopathy is seen. Gallbladder contains no calcified gallstones. No mesenteric abnormalities are appreciated. No pelvic mass or adenopathy is noted. Delayed images show contrast within the bladder as well as within the ureters. Bone window settings were reviewed which show electro-stimulating wires within the lower thoracic spine. Diffuse degenerative change is noted throughout the visualized spine with multiple levels of vacuum disc phenomena. Impression: 1. Dilated air-filled splenic flexure beneath an elevated left hemidiaphragm compatible with ileus. Increased stool is noted within the transverse and right colon and within the rectum. 2. Mildly dilated fluid-filled small bowel loops are seen suspicious for mild partial small bowel obstruction most likely from adhesions. 3. Other findings believed to be incidental as described above. Diagnostic code #3
[2021-02-22] MEDS ORDERED: Morphine 2 MG/ML SYRINGE IVPUSH ONE (12:36)
[2021-02-22] MEDS ORDERED: Dextrose 5%-Lactated Ringers 1,000 ML IV SCH ×2 (12:45→16:45)
--- NOTE | 2021-02-22 16:36 | PCM.HP.2 ---
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 He has reversal in 2018. He has parkinson's disease and takes medications for this. He has had recurrent bowel obstructions in the past few months. Family reports 3 bouts since November 2020. Each was treated with bowel rest. He has not required surgery for any of this yet. He does get some PT at the [facility] where he lives now. This episode started 2 days ago when he started feeling bloated. No emesis. today the symptoms worsen and the nausea intensified, still no emesis. Last BM was 2 days ago. No flatus since yesterday. He decided to come to the hospital for care. Onset of Symptoms: Reports: Gradual Duration of Symptoms: Reports: Day(s): (2) Location: Reports: Abdomen Quality: Reports: Other (bloating) Improves with: Reports: None Worsens with: Reports: None Associated Symptoms: Reports: Other Lower Abdominal Pain Score (Numeric/FACES): 7 - Related Data Allergies/Adverse Reactions: Allergies Allergy/AdvReac Type Severity Reaction Status Date / Time No Known Allergies Allergy Verified 02/22/21 10:22 Home Medications: Home Meds Carbidopa/Levodopa [Sinemet 25-100 mg] 1 tab PO 5XDAY 12/10/15 [History] ClonazePAM [KlonoPIN] 0.5 mg PO BEDTIME 12/10/15 [History] Levothyroxine [Synthroid] 100 mcg PO ACBREAKFAST 12/10/15 [History] Sertraline [Zoloft] 50 mg PO DAILY 12/10/15 [History] Vitamin E 400 unit PO BID 12/10/15 [History] amantadine HCL [Amantadine] 100 mg PO BID 12/10/15 [History] Aspirin/Acetaminophen/Caffeine [Hm Migraine Formula Caplet] 1 tab PO ASDIRECTED PRN 12/29/16 [History] polyethylene glycoL 3350 [Miralax] 1 dose PO DAILY 12/29/16 [History] Lactobacillus Acidophilus [Probiotic] 1 each PO DAILY 12/23/19 [History] Entacapone [Comtan] 200 mg PO 02/22/21 [History] Past Medical History HEENT History: Reports: Hard of Hearing, Impaired Vision Cardiovascular History: Reports: None Respiratory History: Reports: Sleep Apnea Gastrointestinal History: Reports: Chronic Constipation Genitourinary History: Reports: Renal Calculus Musculoskeletal History: Reports: Back Pain, Chronic, Other (See Below) Neurological History: Reports: Parkinson's Psychiatric History: Reports: None Endocrine/Metabolic History: Reports: Hypothyroidism Hematologic History: Reports: None Immunologic History: Reports: None Oncologic (Cancer) History: Reports: None Dermatologic History: Reports: None - Infectious Disease History Infectious Disease History: Reports: Chicken Pox, Measles - Past Surgical History Head Surgeries/Procedures: Reports: None HEENT Surgical History: Reports: Cataract Surgery, Oral Surgery GI Surgical History: Reports: Colon, Hernia, Inguinal Neurological Surgical History: Reports: Lumbar Spine, Other (See Below) Other Neurological Surgeries/Procedures: spinal stimulator. Musculoskeletal Surgical History: Reports: Other (See Below) Other Musculoskeletal Surgeries/Procedures:: recent back surgery Dec 2015 Social & Family History - Family History Family Medical History: No Pertinent Family History - Tobacco Use Tobacco Use Status *Q: Former Tobacco User Used Tobacco, but Quit: Yes Month/Year Tobacco Last Used: 1999 - Caffeine Use Caffeine Use: Reports: None - Recreational Drug Use Recreational Drug Use: No - Living Situation & Occupation Living situation: Reports: , Other (With ex-) Occupation: Retired H&P Review of Systems - Review of Systems: Review Of Systems: See Below General: Reports: No Symptoms HEENT: Reports: No Symptoms Pulmonary: Reports: No Symptoms Cardiovascular: Reports: No Symptoms Gastrointestinal: Reports: No Symptoms Genitourinary: Reports: No Symptoms Musculoskeletal: Reports: Muscle Stiffness, Other (parkinson's issues) Exam - Exam Exam: See Below - Vital Signs Vital Signs: Last Vital Signs Temp 97.9 F 02/22/21 12:13 Pulse 58 L 02/22/21 12:13 Resp 16 02/22/21 10:16 BP 126/79 02/22/21 12:13 Pulse Ox 100 02/22/21 12:13 Weight: 68.039 kg - Exam General: Alert, Oriented, Cooperative Lungs: Clear to Auscultation, Normal Respiratory Effort Cardiovascular: Regular Rate, Regular Rhythm, Normal S1, Normal S2 GI/Abdominal Exam: Soft, Non-Tender, Hernia (3 reducible abdominal hernias.) - Patient Data Lab Results Last 24 hrs: Laboratory Results - last 24 hr 02/22/21 02/22/21 02/22/21 Range/Units 10:55 10:55 10:55 WBC 6.68 (4.23-9.07) K/mm3 RBC 4.69 (4.63-6.08) M/mm3 Hgb 15.1 (13.7-17.5) gm/dl Hct 45.3 (40.1-51.0) % MCV 96.6 H (79.0-92.2) fl MCH 32.2 (25.7-32.2) pg MCHC 33.3 (32.2-35.5) g/dl RDW Std Deviation 47.6 H (35.1-43.9) fL Plt Count 168 D (163-337) K/mm3 MPV 9.2 L (9.4-12.3) fl Neut % (Auto) 55.8 (34.0-67.9) % Lymph % (Auto) 23.4 (21.8-53.1) % Bowie % (Auto) 17.7 H (5.3-12.2) % Eos % (Auto) 2.4 (0.8-7.0) Baso % (Auto) 0.3 (0.1-1.2) % Neut # (Auto) 3.73 (1.78-5.38) K/mm3 Lymph # (Auto) 1.56 (1.32-3.57) K/mm3 Bowie # (Auto) 1.18 H (0.30-0.82) K/mm3 Eos # (Auto) 0.16 (0.04-0.54) K/mm3 Baso # (Auto) 0.02 (0.01-0.08) K/mm3 PT 11.4 (9.7-12.0) SECONDS INR 1.03 Sodium 144 (136-145) mEq/L Potassium 4.1 (3.5-5.1) mEq/L Chloride 105 (98-107) mEq/L Carbon Dioxide 28 (21-32) mEq/L Anion Gap 15.1 H (5-15) BUN 27 H (7-18) mg/dL Creatinine 0.9 (0.7-1.3) mg/dL Est Cr Clr Drug Dosing 67.20 mL/min Estimated GFR (MDRD) > 60 (>60) mL/min BUN/Creatinine Ratio 30.0 H (14-18) Glucose 99 (70-99) mg/dL Lactic Acid (0.4-2.0) mmol/L Calcium 9.2 (8.5-10.1) mg/dL Total Bilirubin 0.6 (0.2-1.0) mg/dL AST 15 (15-37) U/L ALT 9 L (16-63) U/L Alkaline Phosphatase 65 (46-116) U/L Total Protein 6.2 L (6.4-8.2) g/dl Albumin 4.0 (3.4-5.0) g/dl Globulin 2.2 gm/dL Albumin/Globulin Ratio 1.8 (1-2) Lipase 57 L (73-393) U/L SARS-CoV-2 RNA (JACQUES) (NEGATIVE) 02/22/21 02/22/21 Range/Units 10:55 13:25 WBC (4.23-9.07) K/mm3 RBC (4.63-6.08) M/mm3 Hgb (13.7-17.5) gm/dl Hct (40.1-51.0) % MCV (79.0-92.2) fl MCH (25.7-32.2) pg MCHC (32.2-35.5) g/dl RDW Std Deviation (35.1-43.9) fL Plt Count (163-337) K/mm3 MPV (9.4-12.3) fl Neut % (Auto) (34.0-67.9) % Lymph % (Auto) (21.8-53.1) % Bowie % (Auto) (5.3-12.2) % Eos % (Auto) (0.8-7.0) Baso % (Auto) (0.1-1.2) % Neut # (Auto) (1.78-5.38) K/mm3 Lymph # (Auto) (1.32-3.57) K/mm3 Bowie # (Auto) (0.30-0.82) K/mm3 Eos # (Auto) (0.04-0.54) K/mm3 Baso # (Auto) (0.01-0.08) K/mm3 PT (9.7-12.0) SECONDS INR Sodium (136-145) mEq/L Potassium (3.5-5.1) mEq/L Chloride (98-107) mEq/L Carbon Dioxide (21-32) mEq/L Anion Gap (5-15) BUN (7-18) mg/dL Creatinine (0.7-1.3) mg/dL Est Cr Clr Drug Dosing mL/min Estimated GFR (MDRD) (>60) mL/min BUN/Creatinine Ratio (14-18) Glucose (70-99) mg/dL Lactic Acid 1.7 (0.4-2.0) mmol/L Calcium (8.5-10.1) mg/dL Total Bilirubin (0.2-1.0) mg/dL AST (15-37) U/L ALT (16-63) U/L Alkaline Phosphatase (46-116) U/L Total Protein (6.4-8.2) g/dl Albumin (3.4-5.0) g/dl Globulin gm/dL Albumin/Globulin Ratio (1-2) Lipase (73-393) U/L SARS-CoV-2 RNA (JACQUES) Negative (NEGATIVE) Result Diagrams: 02/22/21 10:55 02/22/21 10:55 Sepsis Event Note - Focused Exam Vital Signs: Vital Signs Temp Pulse Resp BP Pulse Ox 02/22/21 12:13 97.9 F 58 L 126/79 100 02/22/21 10:16 97.3 F 61 16 140/88 95 Problem List Initiated/Reviewed/Updated: No Orders Last 24hrs: Active Orders 24 hr Category Date Time Status Admission Status [Patient Status] [ADT] Routine ADT 02/22/21 12:37 Active Dextrose 5%-Lactated Ringers 1,000 ml Med 02/22/21 12:45 Active IV ASDIRECTED Sodium Chloride 0.9% [Saline Flush] Med 02/22/21 10:50 Active 10 ml FLUSH ONETIME PRN Medication Orders Dextrose/Lactated Ringer's (Dextrose 5%-Lactated Ringers) 1,000 mls @ 100 mls/hr IV ASDIRECTED NIKKY Last Admin: 02/22/21 12:51 Dose: 100 mls/hr Documented by: JANNY Sodium Chloride (Sodium Chloride 0.9% 10 Ml Syringe) 10 ml FLUSH ONETIME PRN PRN Reason: IV FLUSH Last Admin: 02/22/21 11:59 Dose: 10 ml Documented by: Admin: 02/22/21 10:59 Dose: 10 ml Documented by: MISTY Assessment/Plan Comment:: Patient has symptoms and CT concerning for ileus vs bowel obstruction. Plan - bowel rest - NPO with meds, IVF - PT/OT - Rectal suppository now, if no response, enemas tomorrow - Mortality Measure Prognosis:: Good (localized disease)
[2021-02-22] MEDS ORDERED: Ondansetron 4 MG Tab.DIS PO PRN (16:40)
[2021-02-22] MEDS ORDERED: Acetaminophen 325 MG Tab PO PRN (16:40)
[2021-02-22] MEDS ORDERED: Ondansetron 4 MG/2 ML SDV IV PRN (16:40)
[2021-02-22] MEDS ORDERED: Heparin Sodium 5,000 Units/ML Vial SUBCUT SCH (17:00)
[2021-02-22] MEDS ORDERED: CARBIDOPA PO SCH (18:00)
[2021-02-22] MEDS ORDERED: LEVODOPA PO SCH (18:00)
[2021-02-22] MEDS: ENTACAPONE 200 MG PO SCH ×2 (19:05→22:43)
[2021-02-22] MEDS: LEVODOPA PO SCH ×2 (19:07→21:11)
[2021-02-22] MEDS: CARBIDOPA PO SCH ×2 (19:07→21:11)
[2021-02-22] MEDS: Heparin Sodium 5,000 Units/ML Vial SUBCUT SCH (21:10)
[2021-02-22] MEDS: AMANTADINE 100 MG PO SCH (21:11)
[2021-02-22] MEDS: CLONAZEPAM 0.5 MG PO SCH (21:17)
[2021-02-23] MEDS: CARBIDOPA PO SCH ×8 (01:04→20:05)
[2021-02-23] MEDS: LEVODOPA PO SCH ×8 (01:04→20:05)
[2021-02-23] MEDS: Heparin Sodium 5,000 Units/ML Vial SUBCUT SCH ×3 (04:34→20:03)
[2021-02-23] MEDS ORDERED: LEVODOPA PO SCH (06:00)
[2021-02-23] MEDS ORDERED: CARBIDOPA PO SCH (06:00)
[2021-02-23] MEDS: ENTACAPONE 200 MG PO SCH ×5 (06:18→21:46)
[2021-02-23] MEDS: AMANTADINE 100 MG PO SCH ×2 (09:14→20:09)
[2021-02-23] MEDS: SERTRALINE 100 MG PO SCH (09:15)
[2021-02-23] MEDS ORDERED: CAFFEINE PO PRN (11:59)
[2021-02-23] MEDS ORDERED: ACETAMINOPHEN PO PRN (11:59)
[2021-02-23] MEDS ORDERED: ASPIRIN PO PRN (11:59)
--- NOTE | 2021-02-23 11:59 | PCM.PN ---
- General Info Date of Service: 02/23/21 Admission Dx/Problem (Free Text): Admission Diagnosis/Problem Admission Diagnosis/Problem Small bowel obstruction Subjective Update: Patient is feeling well. No new issues. Has a BM last night and is passing flatus. had slight nausea last night but did well most of the night Functional Status: Reports: Pain Controlled, Urinating - Review of Systems General: Reports: No Symptoms HEENT: Reports: No Symptoms Pulmonary: Reports: No Symptoms Cardiovascular: Reports: No Symptoms Gastrointestinal: Reports: No Symptoms Genitourinary: Reports: No Symptoms - Patient Data Vitals - Most Recent: Last Vital Signs Temp 98.2 F 02/23/21 07:50 Pulse 56 L 02/23/21 07:51 Resp 18 02/23/21 07:50 BP 118/68 02/23/21 07:50 Pulse Ox 100 02/23/21 07:51 Weight - Most Recent: 68.402 kg I&O - Last 24 Hours: Intake & Output 02/22/21 02/23/21 02/23/21 22:59 06:59 14:59 Intake Total 833 Output Total 900 Balance -67 Lab Results Last 24 Hours: Laboratory Results - last 24 hr 02/22/21 02/22/21 02/23/21 Range/Units 10:55 13:25 05:25 Sodium 144 146 H (136-145) mEq/L Potassium 4.1 3.7 (3.5-5.1) mEq/L Chloride 105 108 H (98-107) mEq/L Carbon Dioxide 28 29 (21-32) mEq/L Anion Gap 15.1 H 12.7 (5-15) BUN 27 H 21 H (7-18) mg/dL Creatinine 0.9 0.9 (0.7-1.3) mg/dL Est Cr Clr Drug Dosing 67.20 68.14 mL/min Estimated GFR (MDRD) > 60 > 60 (>60) mL/min BUN/Creatinine Ratio 30.0 H 23.3 H (14-18) Glucose 99 89 (70-99) mg/dL Calcium 9.2 8.3 L (8.5-10.1) mg/dL Phosphorus 3.2 (2.6-4.7) mg/dL Magnesium 2.0 (1.8-2.4) mg/dL Total Bilirubin 0.6 (0.2-1.0) mg/dL AST 15 (15-37) U/L ALT 9 L (16-63) U/L Alkaline Phosphatase 65 (46-116) U/L Total Protein 6.2 L (6.4-8.2) g/dl Albumin 4.0 (3.4-5.0) g/dl Globulin 2.2 gm/dL Albumin/Globulin Ratio 1.8 (1-2) Lipase 57 L (73-393) U/L SARS-CoV-2 RNA (JACQUES) Negative (NEGATIVE) Med Orders - Current: Current Medications Acetaminophen (Acetaminophen 325 Mg Tab) 650 mg PO Q4H PRN PRN Reason: Pain (Mild 1-3)/fever Last Admin: 02/22/21 19:01 Dose: 650 mg Documented by: Heparin Sodium (Porcine) (Heparin Sodium 5,000 Units/Ml Vial) 5,000 units SUB CUT Q8H [facility] Last Admin: 02/23/21 04:34 Dose: 5,000 units Documented by: Dextrose/Lactated Ringer's (Dextrose 5%-Lactated Ringers) 1,000 mls @ 75 mls/hr IV ASDIRECTED [facility] Last Admin: 02/23/21 02:13 Dose: 75 mls/hr Documented by: Ondansetron HCl (Ondansetron 4 Mg Tab.Dis) 4 mg PO Q4H PRN PRN Reason: nausea, able to take PO Ondansetron HCl (Ondansetron 4 Mg/2 Ml Sdv) 4 mg IV Q4H PRN PRN Reason: Nausea/Vomiting Amantadine 100 Mg Tablet Patient's Own Med 0 each PO BID [facility] Last Admin: 02/23/21 09:14 Dose: 1 each Documented by: Clonazepam 0.5 Mg Tab Patient's Own Med 0 each PO BEDTIME [facility] Last Admin: 02/22/21 21:17 Dose: 1 each Documented by: Entacapone 200 Mg Tablet Patient' s Own Med 0 each PO 5XDAY [facility] Last Admin: 02/23/21 09:15 Dose: 1 each Documented by: Sertraline 100 Mg Tab Patient's Own Med 0 each PO DAILY [facility] Last Admin: 02/23/21 09:15 Dose: 1 each Documented by: Carbidopa/Levodopa 25-100 Mg Tab Patient's Own Med 0 each PO Q3H [facility] Last Admin: 02/23/21 09:14 Dose: 1 each Documented by: Sodium Chloride (Sodium Chloride 0.9% 10 Ml Syringe) 10 ml FLUSH ONETIME PRN PRN Reason: IV FLUSH Last Admin: 02/22/21 11:59 Dose: 10 ml Documented by: Discontinued Medications Heparin Sodium (Porcine) (Heparin Sodium 5,000 Units/Ml Vial) 5,000 units SUBCUT Q8H [facility] Last Admin: 02/22/21 19:45 Dose: Not Given Documented by: Dextrose/Lactated Ringer's (Dextrose 5%-Lactated Ringers) 1,000 mls @ 100 mls/hr IV ASDIRECTED [facility] Last Admin: 02/22/21 12:51 Dose: 100 mls/hr Documented by: Iopamidol (Iopamidol 612 Mg/Ml 100 Ml Bottle) 100 ml IVPUSH ONETIME ONE Stop: 02/22/21 10:51 Last Admin: 02/22/21 11:59 Dose: 100 ml Documented by: Morphine Sulfate (Morphine 2 Mg/Ml Syringe) 2 mg IVPUSH ONETIME ONE Stop: 02/22/21 12:37 Last Admin: 02/22/21 12:51 Dose: 2 mg Documented by: Carbidopa/Levodopa 25-100 Mg Tab Patient's Own Med 0 each PO DAILY@0600 [facility] Carbidopa/Levodopa 25-100 Mg Tab Patient's Own Med 0 each PO QID@1000,1400,1800,2200 [facility] Last Admin: 02/22/21 19:04 Dose: 1 each Documented by: - Exam General: Alert, Oriented, Cooperative Lungs: Clear to Auscultation, Normal Respiratory Effort Cardiovascular: Regular Rate, Regular Rhythm GI/Abdominal Exam: Soft, Non-Tender, No Organomegaly, No Distention - Patient Data Lab Results Last 24 hrs: Laboratory Results - last 24 hr 02/22/21 02/22/21 02/23/21 Range/Units 10:55 13:25 05:25 Sodium 144 146 H (136-145) mEq/L Potassium 4.1 3.7 (3.5-5.1) mEq/L Chloride 105 108 H (98-107) mEq/L Carbon Dioxide 28 29 (21-32) mEq/L Anion Gap 15.1 H 12.7 (5-15) BUN 27 H 21 H (7-18) mg/dL Creatinine 0.9 0.9 (0.7-1.3) mg/dL Est Cr Clr Drug Dosing 67.20 68.14 mL/min Estimated GFR (MDRD) > 60 > 60 (>60) mL/min BUN/Creatinine Ratio 30.0 H 23.3 H (14-18) Glucose 99 89 (70-99) mg/dL Calcium 9.2 8.3 L (8.5-10.1) mg/dL Phosphorus 3.2 (2.6-4.7) mg/dL Magnesium 2.0 (1.8-2.4) mg/dL Total Bilirubin 0.6 (0.2-1.0) mg/dL AST 15 (15-37) U/L ALT 9 L (16-63) U/L Alkaline Phosphatase 65 (46-116) U/L Total Protein 6.2 L (6.4-8.2) g/dl Albumin 4.0 (3.4-5.0) g/dl Globulin 2.2 gm/dL Albumin/Globulin Ratio 1.8 (1-2) Lipase 57 L (73-393) U/L SARS-CoV-2 RNA (JACQUES) Negative (NEGATIVE) Result Diagrams: 02/22/21 10:55 02/23/21 05:25 Sepsis Event Note - Evaluation Sepsis Screening Result: No Definite Risk - Focused Exam Vital Signs: Vital Signs Temp Pulse Resp BP Pulse Ox 02/23/21 07:51 56 L 100 02/23/21 07:50 98.2 F 18 118/68 02/23/21 04:38 97.7 F 57 L 18 126/81 99 02/23/21 01:04 97.9 F 58 L 20 115/79 96 - Problem List Review Problem List Initiated/Reviewed/Updated: No - My Orders Last 24 Hours: My Active Orders 02/22/21 16:40 Oxygen Therapy [RC] PRN Up With Assistance [RC] ASDIRECTED Up ad Samira [RC] ASDIRECTED VTE/DVT Education [RC] Vital Signs [RC] Q4HR PT Evaluation and Treatment [CONS] Routine Acetaminophen [TylenoL] 650 mg PO Q4H PRN Ondansetron [Zofran ODT] 4 mg PO Q4H PRN Ondansetron [Zofran] 4 mg IV Q4H PRN Resuscitation Status Routine 02/22/21 16:41 Intake and Output [RC] 04,16 Sequential Compression Device [OM.PC] Per Unit Routine 02/22/21 16:42 Antiembolic Devices [RC] PER UNIT ROUTINE 02/22/21 16:44 Communication Order [RC] ROUTINE 02/22/21 16:45 Dextrose 5%-Lactated Ringers 1,000 ml IV ASDIRECTED 02/22/21 18:00 Patient's Own Medication [Ptom] 0 each PO 5XDAY Patient's Own Medication [Ptom] 0 each PO Q3H 02/22/21 20:00 Heparin Sodium 5,000 units SUBCUT Q8H 02/22/21 21:00 Patient's Own Medication [Ptom] 0 each PO BEDTIME Patient's Own Medication [Ptom] 0 each PO BID 02/23/21 09:00 Patient's Own Medication [Ptom] 0 each PO DAILY 02/23/21 Lunch Clear Liquid Diet [DIET] 02/24/21 05:11 BASIC METABOLIC PANEL,BMP [CHEM] AM MAGNESIUM [CHEM] AM PHOSPHORUS [CHEM] AM 02/25/21 05:11 BASIC METABOLIC PANEL,BMP [CHEM] AM MAGNESIUM [CHEM] AM PHOSPHORUS [CHEM] AM - Assessment Assessment:: HD1 for SBO. Had bowel movement, and is passing flatus now. - Plan Plan:: Plan: - initiate PO diet with CLD for lunch and advance as tolerated to regular diet by dinner. - resume Miralax - dc IVF at this time - continue home meds - Dispo: is he does well with diet, we will plan to discharge him to home tomorrow
[2021-02-23] MEDS: Polyethylene Glycol 3350 Powder 17 GM Packet PO SCH (12:00)
[2021-02-23] MEDS: CLONAZEPAM 0.5 MG PO SCH (20:05)
[2021-02-23] MEDS ORDERED: Non-Formulary Medication 1 Each (Vitamin E [Vitamin E] 400 UNIT Capsule) PO SCH (21:00)
[2021-02-24] MEDS: CARBIDOPA PO SCH ×5 (00:07→11:45)
[2021-02-24] MEDS: LEVODOPA PO SCH ×5 (00:07→11:45)
[2021-02-24] MEDS: ENTACAPONE 200 MG PO SCH ×2 (05:23→09:50)
[2021-02-24] MEDS: Heparin Sodium 5,000 Units/ML Vial SUBCUT SCH (05:23)
[2021-02-24] MEDS ORDERED: Levothyroxine 100 MCG Tab PO SCH (06:00)
--- NOTE | 2021-02-24 09:11 | PCM.PN ---
- General Info Date of Service: 02/24/21 Admission Dx/Problem (Free Text): Admission Diagnosis/Problem Admission Diagnosis/Problem Small bowel obstruction Subjective Update: Patient is doing well. He tolerated regular diet for dinner and is feeling fine. No nausea or vomiting. He feels he is back to his baseline Functional Status: Reports: Tolerating Diet, Ambulating, Urinating - Review of Systems General: Reports: No Symptoms HEENT: Reports: No Symptoms Pulmonary: Reports: No Symptoms Cardiovascular: Reports: No Symptoms Gastrointestinal: Reports: No Symptoms Genitourinary: Reports: No Symptoms Musculoskeletal: Reports: No Symptoms Skin: Reports: No Symptoms - Patient Data Vitals - Most Recent: Last Vital Signs Temp 98.2 F 02/24/21 05:20 Pulse 58 L 02/24/21 05:20 Resp 18 02/24/21 05:20 BP 126/76 02/24/21 05:20 Pulse Ox 95 02/24/21 05:20 Weight - Most Recent: 68.855 kg I&O - Last 24 Hours: Intake & Output 02/23/21 02/24/21 02/24/21 22:59 06:59 14:59 Intake Total 1000 300 Output Total 350 600 Balance 650 -300 Lab Results Last 24 Hours: Laboratory Results - last 24 hr 02/24/21 Range/Units 05:28 Sodium 142 (136-145) mEq/L Potassium 4.0 (3.5-5.1) mEq/L Chloride 107 (98-107) mEq/L Carbon Dioxide 27 (21-32) mEq/L Anion Gap 12.0 (5-15) BUN 14 (7-18) mg/dL Creatinine 0.8 (0.7-1.3) mg/dL Est Cr Clr Drug Dosing 76.51 mL/min Estimated GFR (MDRD) > 60 (>60) mL/min BUN/Creatinine Ratio 17.5 (14-18) Glucose 82 (70-99) mg/dL Calcium 8.4 L (8.5-10.1) mg/dL Phosphorus 3.2 (2.6-4.7) mg/dL Magnesium 1.9 (1.8-2.4) mg/dL Med Orders - Current: Current Medications Acetaminophen (Acetaminophen 325 Mg Tab) 650 mg PO Q4H PRN PRN Reason: Pain (Mild 1-3)/fever Last Admin: 02/22/21 19:01 Dose: 650 mg Documented by: Heparin Sodium (Porcine) (Heparin Sodium 5,000 Units/Ml Vial) 5,000 units SUBCUT Q8H [facility] Last Admin: 02/24/21 05:23 Dose: 5,000 units Documented by: Levothyroxine Sodium (Levothyroxine 100 Mcg Tab) 100 mcg PO ACBREAKFAST [facility] Non-Formulary Medication (Vitamin E [Vitamin E]) 400 unit PO BID [facility] Non-Formulary Medication (Aspirin/Acetaminophen/Caffeine) 1 tab PO ASDIRECTED PRN PRN Reason: Pain Ondansetron HCl (Ondansetron 4 Mg Tab.Dis) 4 mg PO Q4H PRN PRN Reason: nausea, able to take PO Ondansetron HCl (Ondansetron 4 Mg/2 Ml Sdv) 4 mg IV Q4H PRN PRN Reason: Nausea/Vomiting Amantadine 100 Mg Tablet Patient's Own Med 0 each PO BID [facility] Last Admin: 02/23/21 20:09 Dose: 1 each Documented by: Clonazepam 0.5 Mg Tab Patient's Own Med 0 each PO BEDTIME [facility] Last Admin: 02/23/21 20:05 Dose: 1 each Documented by: Entacapone 200 Mg Tablet Patient' s Own Med 0 each PO 5XDAY [facility] Last Admin: 02/24/21 05:23 Dose: 1 each Documented by: Sertraline 100 Mg Tab Patient's Own Med 0 each PO DAILY [facility] Last Admin: 02/23/21 09:15 Dose: 1 each Documented by: Carbidopa/Levodopa 25-100 Mg Tab Patient's Own Med 0 each PO Q3H [facility] Last Admin: 02/24/21 05:23 Dose: 1 each Documented by: Polyethylene Glycol (Polyethylene Glycol 3350 Powder 17 Gm Packet) 17 gm PO DAILY [facility] Last Admin: 02/23/21 12:00 Dose: 17 gm Documented by: Sodium Chloride (Sodium Chloride 0.9% 10 Ml Syringe) 10 ml FLUSH ONETIME PRN PRN Reason: IV FLUSH Last Admin: 02/22/21 11:59 Dose: 10 ml Documented by: Discontinued Medications Heparin Sodium (Porcine) (Heparin Sodium 5,000 Units/Ml Vial) 5,000 units SUBCUT Q8H [facility] Last Admin: 02/22/21 19:45 Dose: Not Given Documented by: Dextrose/Lactated Ringer's (Dextrose 5%-Lactated Ringers) 1,000 mls @ 100 mls/hr IV ASDIRECTED [facility] Last Admin: 02/22/21 12:51 Dose: 100 mls/hr Documented by: Dextrose/Lactated Ringer's (Dextrose 5%-Lactated Ringers) 1,000 mls @ 75 mls/hr IV ASDIRECTED [facility] Last Admin: 02/23/21 02:13 Dose: 75 mls/hr Documented by: Iopamidol (Iopamidol 612 Mg/Ml 100 Ml Bottle) 100 ml IVPUSH ONETIME ONE Stop: 02/22/21 10:51 Last Admin: 02/22/21 11:59 Dose: 100 ml Documented by: Morphine Sulfate (Morphine 2 Mg/Ml Syringe) 2 mg IVPUSH ONETIME ONE Stop: 02/22/21 12:37 Last Admin: 02/22/21 12:51 Dose: 2 mg Documented by: Carbidopa/Levodopa 25-100 Mg Tab Patient's Own Med 0 each PO DAILY@0600 [facility] Carbidopa/Levodopa 25-100 Mg Tab Patient's Own Med 0 each PO QID@1000,1400,1800,2200 [facility] Last Admin: 02/22/21 19:04 Dose: 1 each Documented by: - Exam General: Alert, Oriented, Cooperative Lungs: Clear to Auscultation, Normal Respiratory Effort Cardiovascular: Regular Rate, Regular Rhythm GI/Abdominal Exam: Soft, Non-Tender, No Organomegaly, No Distention - Patient Data Lab Results Last 24 hrs: Laboratory Results - last 24 hr 02/24/21 Range/Units 05:28 Sodium 142 (136-145) mEq/L Potassium 4.0 (3.5-5.1) mEq/L Chloride 107 (98-107) mEq/L Carbon Dioxide 27 (21-32) mEq/L Anion Gap 12.0 (5-15) BUN 14 (7-18) mg/dL Creatinine 0.8 (0.7-1.3) mg/dL Est Cr Clr Drug Dosing 76.51 mL/min Estimated GFR (MDRD) > 60 (>60) mL/min BUN/Creatinine Ratio 17.5 (14-18) Glucose 82 (70-99) mg/dL Calcium 8.4 L (8.5-10.1) mg/dL Phosphorus 3.2 (2.6-4.7) mg/dL Magnesium 1.9 (1.8-2.4) mg/dL Result Diagrams: 02/22/21 10:55 02/24/21 05:28 Sepsis Event Note - Evaluation Sepsis Screening Result: No Definite Risk - Focused Exam Vital Signs: Vital Signs Temp Pulse Resp BP Pulse Ox 02/24/21 05:20 98.2 F 58 L 18 126/76 95 02/24/21 00:11 98.2 F 56 L 16 118/69 95 - Problem List Review Problem List Initiated/Reviewed/Updated: No - My Orders Last 24 Hours: My Active Orders 02/23/21 09:00 Patient's Own Medication [Ptom] 0 each PO DAILY 02/23/21 11:59 Aspirin/Acetaminophen/Caffeine 1 tab PO ASDIRECTED PRN 02/23/21 12:00 polyethylene glycoL 3350 [MiraLAX] 17 gm PO DAILY 02/23/21 Dinner Regular Diet [DIET] 02/23/21 21:00 Vitamin E [Vitamin E] 400 unit PO BID 02/24/21 06:00 Levothyroxine [Synthroid] 100 mcg PO ACBREAKFAST 02/25/21 05:11 BASIC METABOLIC PANEL,BMP [CHEM] AM MAGNESIUM [CHEM] AM PHOSPHORUS [CHEM] AM - Assessment Assessment:: HD2 for SBO. This has now resolved as the patient is tolerating regular diet and having bowel function. - Plan Plan:: Plan: - plan to discharge home today.
--- NOTE | 2021-02-24 09:17 | PCM.DCSUM1 ---
Discharge Summary - Hospital Course Free Text/Narrative:: Patient presented with concern for partial bowel obstruction. He was managed with bowel rest until bowel function returned. Diet was then advanced as tolerated. He is doing well. He will be discharged back to the facility. Diagnosis: Stroke: No - Discharge Data Discharge Date: 02/24/21 Discharge Disposition: Home, Self-Care 01 Condition: Good - Referral to Home Health Primary Care Physician: Jefferson Klein MD - Patient Summary/Data Consults: Consultations 02/22/21 16:40 PT Evaluation and Treatment [CONS] Routine - Patient Instructions Diet: Heart Healthy Diet Activity: As Tolerated Showering/Bathing: August Shower Notify Provider of: Fever, Increased Pain, Nausea and/or Vomiting - Discharge Plan *PRESCRIPTION DRUG MONITORING PROGRAM REVIEWED*: Not Applicable *COPY OF PRESCRIPTION DRUG MONITORING REPORT IN PATIENT YAW: Not Applicable Home Medications: Home Meds Carbidopa/Levodopa [Sinemet 25-100 mg] 1 tab PO Q3HR 12/10/15 [History] ClonazePAM [KlonoPIN] 0.5 mg PO BEDTIME 12/10/15 [History] Levothyroxine [Synthroid] 100 mcg PO ACBREAKFAST 12/10/15 [History] Sertraline [Zoloft] 50 mg PO DAILY 12/10/15 [History] Vitamin E 400 unit PO BID 12/10/15 [History] amantadine HCL [Amantadine] 100 mg PO BID 12/10/15 [History] Aspirin/Acetaminophen/Caffeine [Hm Migraine Formula Caplet] 1 tab PO ASDIRECTED PRN 12/29/16 [History] Lactobacillus Acidophilus [Probiotic] 1 each PO DAILY 12/23/19 [History] Entacapone [Comtan] 200 mg PO 5XDAY 02/22/21 [History] polyethylene glycoL 3350 [Miralax] 1 dose PO BID #0 02/24/21 [Rx] Oxygen Therapy Mode: Room Air Forms: ED Department Discharge Referrals: Jefferson Klein MD [Primary Care Provider] - - Discharge Summary/Plan Comment DC Time >30 min.: Yes Total # of Minutes for Discharge Time: 35 - General Info Date of Service: 02/24/21 Admission Dx/Problem (Free Text: Admission Diagnosis/Problem Admission Diagnosis/Problem Small bowel obstruction Subjective Update: Patient is doing well. He tolerated regular diet for dinner and is feeling fine. No nausea or vomiting. He feels he is back to his baseline Functional Status: Reports: Tolerating Diet, Ambulating, Urinating - Review of Systems General: Reports: No Symptoms HEENT: Reports: No Symptoms Pulmonary: Reports: No Symptoms Cardiovascular: Reports: No Symptoms Gastrointestinal: Reports: No Symptoms Genitourinary: Reports: No Symptoms Musculoskeletal: Reports: No Symptoms Skin: Reports: No Symptoms Neurological: Reports: No Symptoms - Patient Data Vitals - Most Recent: Last Vital Signs Temp 98.2 F 02/24/21 05:20 Pulse 58 L 02/24/21 05:20 Resp 18 02/24/21 05:20 BP 126/76 02/24/21 05:20 Pulse Ox 95 02/24/21 05:20 Weight - Most Recent: 68.855 kg I&O - Last 24 hours: Intake & Output 02/23/21 02/24/21 02/24/21 22:59 06:59 14:59 Intake Total 1000 300 Output Total 350 600 Balance 650 -300 Lab Results - Last 24 hrs: Laboratory Results - last 24 hr 02/24/21 Range/Units 05:28 Sodium 142 (136-145) mEq/L Potassium 4.0 (3.5-5.1) mEq/L Chloride 107 (98-107) mEq/L Carbon Dioxide 27 (21-32) mEq/L Anion Gap 12.0 (5-15) BUN 14 (7-18) mg/dL Creatinine 0.8 (0.7-1.3) mg/dL Est Cr Clr Drug Dosing 76.51 mL/min Estimated GFR (MDRD) > 60 (>60) mL/min BUN/Creatinine Ratio 17.5 (14-18) Glucose 82 (70-99) mg/dL Calcium 8.4 L (8.5-10.1) mg/dL Phosphorus 3.2 (2.6-4.7) mg/dL Magnesium 1.9 (1.8-2.4) mg/dL Med Orders - Current: Current Medications Acetaminophen (Acetaminophen 325 Mg Tab) 650 mg PO Q4H PRN PRN Reason: Pain (Mild 1-3)/fever Last Admin: 02/22/21 19:01 Dose: 650 mg Documented by: Heparin Sodium (Porcine) (Heparin Sodium 5,000 Units/Ml Vial) 5,000 units SUBCUT Q8H [facility] Last Admin: 02/24/21 05:23 Dose: 5,000 units Documented by: Levothyroxine Sodium (Levothyroxine 100 Mcg Tab) 100 mcg PO ACBREAKFAST [facility] Non-Formulary Medication (Vitamin E [Vitamin E]) 400 unit PO BID [facility] Non-Formulary Medication (Aspirin/Acetaminophen/Caffeine) 1 tab PO ASDIRECTED PRN PRN Reason: Pain Ondansetron HCl (Ondansetron 4 Mg Tab.Dis) 4 mg PO Q4H PRN PRN Reason: nausea, able to take PO Ondansetron HCl (Ondansetron 4 Mg/2 Ml Sdv) 4 mg IV Q4H PRN PRN Reason: Nausea/Vomiting Amantadine 100 Mg Tablet Patient's Own Med 0 each PO BID [facility] Last Admin: 02/23/21 20:09 Dose: 1 each Documented by: Clonazepam 0.5 Mg Tab Patient's Own Med 0 each PO BEDTIME [facility] Last Admin: 02/23/21 20:05 Dose: 1 each Documented by: Entacapone 200 Mg Tablet Patient' s Own Med 0 each PO 5XDAY [facility] Last Admin: 02/24/21 05:23 Dose: 1 each Documented by: Sertraline 100 Mg Tab Patient's Own Med 0 each PO DAILY [facility] Last Admin: 02/23/21 09:15 Dose: 1 each Documented by: Carbidopa/Levodopa 25-100 Mg Tab Patient's Own Med 0 each PO Q3H [facility] Last Admin: 02/24/21 05:23 Dose: 1 each Documented by: Polyethylene Glycol (Polyethylene Glycol 3350 Powder 17 Gm Packet) 17 gm PO DAILY [facility] Last Admin: 02/23/21 12:00 Dose: 17 gm Documented by: Sodium Chloride (Sodium Chloride 0.9% 10 Ml Syringe) 10 ml FLUSH ONETIME PRN PRN Reason: IV FLUSH Last Admin: 02/22/21 11:59 Dose: 10 ml Documented by: Discontinued Medications Heparin Sodium (Porcine) (Heparin Sodium 5,000 Units/Ml Vial) 5,000 units SUBCUT Q8H [facility] Last Admin: 02/22/21 19:45 Dose: Not Given Documented by: Dextrose/Lactated Ringer's (Dextrose 5%-Lactated Ringers) 1,000 mls @ 100 mls/hr IV ASDIRECTED [facility] Last Admin: 02/22/21 12:51 Dose: 100 mls/hr Documented by: Dextrose/Lactated Ringer's (Dextrose 5%-Lactated Ringers) 1,000 mls @ 75 mls/hr IV ASDIRECTED [facility] Last Admin: 02/23/21 02:13 Dose: 75 mls/hr Documented by: Iopamidol (Iopamidol 612 Mg/Ml 100 Ml Bottle) 100 ml IVPUSH ONETIME ONE Stop: 02/22/21 10:51 Last Admin: 02/22/21 11:59 Dose: 100 ml Documented by: Morphine Sulfate (Morphine 2 Mg/Ml Syringe) 2 mg IVPUSH ONETIME ONE Stop: 02/22/21 12:37 Last Admin: 02/22/21 12:51 Dose: 2 mg Documented by: Carbidopa/Levodopa 25-100 Mg Tab Patient's Own Med 0 each PO DAILY@0600 [facility] Carbidopa/Levodopa 25-100 Mg Tab Patient's Own Med 0 each PO QID@1000,1400,1800,2200 [facility] Last Admin: 02/22/21 19:04 Dose: 1 each Documented by: - Exam General: Reports: Alert, Oriented, Cooperative Lungs: Reports: Clear to Auscultation, Normal Respiratory Effort Cardiovascular: Reports: Regular Rate, Regular Rhythm GI/Abdominal Exam: Soft, Non-Tender, No Organomegaly, No Distention
[2021-02-24] MEDS: AMANTADINE 100 MG PO SCH (09:46)
[2021-02-24] MEDS: Polyethylene Glycol 3350 Powder 17 GM Packet PO SCH (09:51)
[2021-02-24] MEDS: SERTRALINE 100 MG PO SCH (09:51)
[2021-02-24 12:03] VITALS: BP 102/63
[2021-02-24 12:04] VITALS: PULSE 62
== END 2021-02-24 12:12 | disposition home or self-care (01) ==
LOC: JD.ED 10:00 → JD.MS 12:37
PROVIDERS: ADMIT Surgery; ATTEND Surgery
DX: K56.609 Unspecified intestinal obstruction, unspecified as to partial versus complete obstruction (principal); G47.30 Sleep apnea, unspecified; E03.9 Hypothyroidism, unspecified; Z98.890 Other specified postprocedural states; Z87.891 Personal history of nicotine dependence; Z20.822 Contact with and (suspected) exposure to COVID-19; Z90.49 Acquired absence of other specified parts of digestive tract; Z93.3 Colostomy status; Z79.899 Other long term (current) drug therapy
CPT/HCPCS: 36415; 74177; 80048; 80053; 83605; 83690; 83735; 84100; 85025; 85610; 96372; 96374; 97161; 99285; A9270; G0378; J1644; J2270; J7121; Q9967; U0002

== ENCOUNTER 2021-11-11 10:38 | Emergency (ER) | payer MEDICARE, BC ==
[2021-11-11] MEDS ORDERED: Sodium Chloride 0.9% 10 ML Syringe FLUSH PRN (11:07)
[2021-11-11 13:36] VITALS: BP 139/90; PULSE 55
== END 2021-11-11 13:45 | disposition home or self-care (01) ==
LOC: JD.ED 10:38
DX: R55 Syncope and collapse (principal); E03.9 Hypothyroidism, unspecified; Z79.899 Other long term (current) drug therapy
CPT/HCPCS: 36415; 70450; 70450-26; 80053; 84484; 85025; 93005; 93225; 93226; 99284

== ENCOUNTER 2022-07-13 15:42 | Emergency (ER) | payer MEDICARE, BC ==
[~2022-07-13 15:42] MED LIST: Ondansetron 4 MG/2 ML SDV IVPUSH ONE
[2022-07-13] MEDS ORDERED: Ondansetron 4 MG/2 ML SDV ONE (16:08)
[2022-07-13] MEDS ORDERED: Sodium Chloride 0.9% 1,000 ML IV STA (16:13)
[2022-07-13] MEDS ORDERED: Sodium Chloride 0.9% 10 ML Syringe FLUSH PRN (16:13)
[2022-07-13] MEDS ORDERED: HYDROmorphone 0.5 MG/0.5 ML Syringe IVPUSH ONE ×2 (16:15→16:44)
[2022-07-13] MEDS ORDERED: HYDROmorphone 1 MG/ML Syringe IVPUSH ONE (17:47)
[2022-07-13] MEDS ORDERED: Benzocaine 20% Topical Spray UD MUCMEM ONE (18:31)
[2022-07-13 18:50] LABS: CORONAVIRUS COVID-19 NAA NEGATIVE (NEGATIVE)
[2022-07-13] MEDS ORDERED: Sodium Chloride 0.9% 1,000 ML IV SCH (19:30)
[2022-07-13 20:24] VITALS: BP 120/77; PULSE 63
== END 2022-07-13 19:40 ==
LOC: JD.ED 15:42
DX: K56.609 Unspecified intestinal obstruction, unspecified as to partial versus complete obstruction (principal); Z20.822 Contact with and (suspected) exposure to COVID-19
CPT/HCPCS: 0241U; 36415; 71045; 74177; 80053; 83605; 83690; 85025; 96361; 96374; 96375; 96376; 99285; J1170; J2405; J7030

== ENCOUNTER 2022-09-01 14:51 | Emergency (ER) | payer MEDICARE, BC ==
[2022-09-01] MEDS ORDERED: Ondansetron 4 MG/2 ML SDV IVPUSH ONE (15:40)
[2022-09-01] MEDS ORDERED: Sodium Chloride 0.9% 1,000 ML IV SCH ×2 (15:45→16:15)
[2022-09-01 15:58] LABS: BASOPHILS ABSOLUTE AUTO 0.01 K/mm3 (0.01-0.08); BASOPHILS PERCENT AUTO 0.1 % (0.1-1.2); EOSINOPHILS PERCENT AUTO 1.5 (0.8-7.0); HEMATOCRIT 46.3 % (40.1-51.0); HEMOGLOBIN 16.4 gm/dl (13.7-17.5); IMMATURE GRAN ABSOLUTE AUTO 0.04 K/mm3 (0.00-0.10); IMMATURE GRAN PERCENT AUTO 0.3 % (<=1.0); LYMPHOCYTES ABSOLUTE AUTO 1.72 K/mm3 (1.32-3.57); LYMPHOCYTES PERCENT AUTO 12.8 % (21.8-53.1); MEAN CORPUSCULAR HEMOGLOBIN 33.5 pg (25.7-32.2); MEAN CORPUSCULAR HGB CONC 35.4 g/dl (32.2-35.5); MEAN CORPUSCULAR VOLUME 94.7 fl (79.0-92.2); MONOCYTES ABSOLUTE AUTO 1.35 K/mm3 (0.30-0.82); MONOCYTES PERCENT AUTO 10.1 % (5.3-12.2); NEUTROPHILS ABSOLUTE AUTO 10.11 K/mm3 (1.78-5.38); NEUTROPHILS PERCENT AUTO 75.2 % (34.0-67.9); PLATELET COUNT,PLT 184 K/mm3 (163-337); RED BLOOD CELL COUNT 4.89 M/mm3 (4.63-6.08); WHITE BLOOD CELL COUNT,WBC 13.43 K/mm3 (4.23-9.07)
[2022-09-01 16:26] LABS: A/G RATIO 1.4 (1-2); ANION GAP 12.9 (5-15); CALCIUM 9.7 mg/dL (8.5-10.1); EST CRCL DRUG DOSING (CG) 59.52 mL/min; POTASSIUM,K 3.9 mEq/L (3.5-5.1); PROTEIN TOTAL,TP 6.9 g/dl (6.4-8.2)
[2022-09-01 16:27] LABS: BILIRUBIN TOTAL 0.9 mg/dL (0.2-1.0); MAGNESIUM 2.1 mg/dL (1.8-2.4)
[2022-09-01 16:31] LABS: INR 1.07; PROTHROMBIN TIME 11.4 SECONDS (9.7-12.0)
[2022-09-01] MEDS ORDERED: cefTRIAXone 1 GM in Sodium Chloride 0.9% 100 ML IV ONE (17:27)
[2022-09-01 23:22] VITALS: BP 121/80; PULSE 65
== END 2022-09-01 19:51 | disposition home or self-care (01) ==
LOC: JD.ED 14:51
DX: K43.6 Other and unspecified ventral hernia with obstruction, without gangrene (principal); J22 Unspecified acute lower respiratory infection; E03.9 Hypothyroidism, unspecified; Z79.899 Other long term (current) drug therapy
CPT/HCPCS: 36415; 71250; 74176; 80053; 82150; 83690; 83735; 84484; 85025; 85610; 85730; 86140; 93005; 96361; 96365; 96375; 99284; J0696; J2405; J3490; J7030; 93010

== ENCOUNTER 2022-11-19 14:11 | Emergency (ER) | payer MEDICARE, BC ==
[2022-11-19] MEDS ORDERED: HYDROmorphone 1 MG/ML Syringe IVPUSH STA (14:45)
[2022-11-19] MEDS ORDERED: Ondansetron 4 MG/2 ML SDV IVPUSH ONE (14:45)
[2022-11-19 14:58] LABS: HEMATOCRIT 50.8 % (40.1-51.0); HEMOGLOBIN 17.2 gm/dl (13.7-17.5); MEAN CORPUSCULAR HEMOGLOBIN 32.6 pg (25.7-32.2); MEAN CORPUSCULAR HGB CONC 33.9 g/dl (32.2-35.5); MEAN CORPUSCULAR VOLUME 96.2 fl (79.0-92.2); MEAN PLATELET VOLUME 9.2 fl (9.4-12.3); PLATELET COUNT,PLT 247 K/mm3 (163-337); RED BLOOD CELL COUNT 5.28 M/mm3 (4.63-6.08); WHITE BLOOD CELL COUNT,WBC 24.34 K/mm3 (4.23-9.07)
[2022-11-19] MEDS: Sodium Chloride 0.9% 1,000 ML IV SCH ×2 (15:08→23:01)
[2022-11-19 15:14] LABS: A/G RATIO 1.6 (1-2); ALANINE AMINOTRANSFERASE,ALT 9 U/L (16-63); ALKALINE PHOSPHATASE 92 U/L (46-116); ANION GAP 16.5 (5-15); ASPARTATE AMNIOTRANSFERASE,AST 16 U/L (15-37); BILIRUBIN TOTAL 0.9 mg/dL (0.2-1.0); BLOOD UREA NITROGEN,BUN 23 mg/dL (7-18); BUN/CREATININE RATIO 17.7 (14-18); CALCIUM 10.4 mg/dL (8.5-10.1); CARBON DIOXIDE,CO2 27 mEq/L (21-32); CHLORIDE,CL 102 mEq/L (98-107); CREATININE 1.3 mg/dL (0.7-1.3); ESTIMATED GFR 56 mL/min (>60); GLUCOSE RANDOM 155 mg/dL (70-99); LIPASE 194 U/L (73-393); POTASSIUM,K 3.5 mEq/L (3.5-5.1); PROTEIN TOTAL,TP 8.2 g/dl (6.4-8.2); SODIUM,NA 142 mEq/L (136-145)
[2022-11-19] MEDS ORDERED: Diatrizoate Meglumine/Diatrizoate Sodium 37% 120 ML Bottle PO ONE (15:28)
[2022-11-19] MEDS ORDERED: Iopamidol 612 MG/ML 100 ML Bottle IVPUSH ONE (15:28)
[2022-11-19 15:57] LABS: BAND PERCENT MAN 1 % (0-10); BASOPHILS PERCENT MAN 0 (0.2-1.2); EOSINOPHILS PERCENT MAN 0 % (0.8-7.0); LYMPHOCYTES % ATYPICAL MANUAL 0 %; LYMPHOCYTES PERCENT MAN 5 % (20-40); MONOCYTES PERCENT MAN 9 % (2-10)
[2022-11-19 15:58] LABS: ANISOCYTOSIS 1+ SLIGHT; PLATELET COUNT ESTIMATE ADEQUATE
[2022-11-19] MEDS ORDERED: HYDROmorphone 0.5 MG/0.5 ML Syringe IVPUSH ONE ×3 (16:39→21:11)
[2022-11-19] MEDS ORDERED: Naloxone 0.4 MG/ML SDV IVPUSH PRN (22:22)
[2022-11-19] MEDS ORDERED: fentaNYL 100 MCG/2 ML SDV IVPUSH ONE (22:22)
[2022-11-19] MEDS ORDERED: Carbidopa/Levodopa 25-100 MG Tab PO ONE ×2 (22:25→22:32)
[2022-11-20 00:22] LABS: APPEARANCE,URINE CLEAR (Clear); BILIRUBIN,URINE 1+ (Negative); COLOR,URINE DARK YELLOW (Yellow); GLUCOSE,URINE NEGATIVE (Negative); KETONES,URINE TRACE (Negative); LEUKOCYTE ESTERASE,URINE NEGATIVE (Negative); NITRITE,URINE NEGATIVE (Negative); OCCULT BLOOD,URINE 2+ (Negative); PH,URINE 5.5 (5.0-8.0); PROTEIN,URINE 2+ (Negative); UROBILINOGEN,URINE 0.2 (0.2-1.0)
[2022-11-20 00:52] LABS: BACTERIA,URINE MODERATE /hpf (FEW); EPITHELIAL CELLS,URINE 0-5 /hpf (0-5); HYALINE CASTS,URINE 0-5 /lpf (0-5); MUCUS,URINE RARE /hpf (FEW)
[2022-11-20 01:16] VITALS: PULSE 67
[2022-11-20 01:17] VITALS: BP 118/82
== END 2022-11-20 01:04 ==
LOC: JD.ED 14:11
DX: K56.609 Unspecified intestinal obstruction, unspecified as to partial versus complete obstruction (principal); E03.9 Hypothyroidism, unspecified; F17.210 Nicotine dependence, cigarettes, uncomplicated; Z79.899 Other long term (current) drug therapy
CPT/HCPCS: 36415; 51701; 74177; 74177-26; 80053; 81001; 83690; 85007; 85027; 93005; 96361; 96374; 96375; 96376; 99285-25; A9270-GY; J1170; J2405; J3010; J7030; Q9963; Q9967

== ENCOUNTER 2022-12-24 21:26 | Emergency (ER) | payer MEDICARE, BC ==
[2022-12-24 22:21] LABS: BASOPHILS ABSOLUTE AUTO 0.1 K/mm3 (0.0-0.2); BASOPHILS PERCENT AUTO 0.3 % (0.0-1.0); EOSINOPHILS ABSOLUTE AUTO 0.1 K/mm3 (0.0-0.4); EOSINOPHILS PERCENT AUTO 0.5 % (0.0-6.0); HEMATOCRIT 47.2 % (42.0-52.0); HEMOGLOBIN 15.9 gm/dl (14.0-18.0); IMMATURE GRAN ABSOLUTE AUTO 0.14 K/mm3 (0.00-0.05); IMMATURE GRAN PERCENT AUTO 0.9 % (0.0-0.4); LYMPHOCYTES PERCENT AUTO 12.5 % (24.0-44.0); MEAN CORPUSCULAR HEMOGLOBIN 32.6 pg (28.0-32.0); MEAN CORPUSCULAR HGB CONC 33.7 g/dl (32.0-36.0); MEAN CORPUSCULAR VOLUME 96.9 fl (83.0-99.0); MEAN PLATELET VOLUME 8.5 fl (9.4-12.4); MONOCYTES ABSOLUTE AUTO 1.3 K/mm3 (0.0-0.8); MONOCYTES PERCENT AUTO 8.2 % (0.0-8.0); NEUTROPHILS ABSOLUTE AUTO 12.2 K/mm3 (1.8-7.7); NEUTROPHILS PERCENT AUTO 77.6 % (41.0-71.0); PLATELET COUNT,PLT 184 K/mm3 (150-400); RED BLOOD CELL COUNT 4.87 M/mm3 (4.52-5.90)
[2022-12-24 22:42] LABS: A/G RATIO 1.4 (1-2); ALBUMIN 4.2 g/dl (3.4-5.0); ANION GAP 15.1 (5-15); BILIRUBIN TOTAL 0.7 mg/dL (0.2-1.0); BUN/CREATININE RATIO 19.1 (14-18); CALCIUM 10.1 mg/dL (8.5-10.1); CREATININE 1.1 mg/dL (0.7-1.3); EST CRCL DRUG DOSING (CG) 52.98 mL/min; POTASSIUM,K 4.1 mEq/L (3.5-5.1); PROTEIN TOTAL,TP 7.2 g/dl (6.4-8.2)
[2022-12-24] MEDS ORDERED: Piperacillin/Tazobactam 4.5 GM in Sodium Chloride 0.9% 100 ML IV ONE (23:50)
[2022-12-25 06:47] VITALS: PULSE 66
[2022-12-25] MEDS ORDERED: Sodium Chloride 0.9% 500 ML IV ONE (06:49)
[2022-12-25] MEDS ORDERED: Sodium Chloride 0.9% 500 ML ONE (06:49)
[2022-12-25 09:42] VITALS: BP 136/89
== END 2022-12-25 09:42 ==
LOC: JD.ED 21:26
DX: K56.609 Unspecified intestinal obstruction, unspecified as to partial versus complete obstruction (principal); E03.9 Hypothyroidism, unspecified; Z79.899 Other long term (current) drug therapy
CPT/HCPCS: 36415; 74176; 80053; 83605; 85025; 96365; 99285; J2543; J3490; J7040; 99283

== ENCOUNTER 2023-01-13 18:32 | Emergency (ER) | payer MEDICARE, BC ==
[2023-01-13] MEDS ORDERED: Sodium Chloride 0.9% 10 ML Syringe FLUSH PRN (19:34)
[2023-01-13] MEDS ORDERED: Ondansetron 4 MG/2 ML SDV IVPUSH ONE (19:36)
[2023-01-13] MEDS ORDERED: HYDROmorphone 0.5 MG/0.5 ML Syringe IVPUSH ONE ×2 (19:36→21:25)
[2023-01-13] MEDS ORDERED: Sodium Chloride 0.9% 1,000 ML IV SCH (19:45)
[2023-01-13 20:27] LABS: BASOPHILS PERCENT AUTO 0.2 % (0.0-1.0); EOSINOPHILS ABSOLUTE AUTO 0.1 K/mm3 (0.0-0.4); EOSINOPHILS PERCENT AUTO 0.4 % (0.0-6.0); HEMATOCRIT 45.5 % (42.0-52.0); HEMOGLOBIN 15.4 gm/dl (14.0-18.0); IMMATURE GRAN ABSOLUTE AUTO 0.05 K/mm3 (0.00-0.05); IMMATURE GRAN PERCENT AUTO 0.4 % (0.0-0.4); LYMPHOCYTES PERCENT AUTO 8.2 % (24.0-44.0); MEAN CORPUSCULAR HEMOGLOBIN 33.2 pg (28.0-32.0); MEAN CORPUSCULAR HGB CONC 33.8 g/dl (32.0-36.0); MEAN CORPUSCULAR VOLUME 98.1 fl (83.0-99.0); MEAN PLATELET VOLUME 8.4 fl (9.4-12.4); MONOCYTES ABSOLUTE AUTO 1.4 K/mm3 (0.0-0.8); MONOCYTES PERCENT AUTO 11.7 % (0.0-8.0); NEUTROPHILS ABSOLUTE AUTO 9.7 K/mm3 (1.8-7.7); NEUTROPHILS PERCENT AUTO 79.1 % (41.0-71.0); PLATELET COUNT,PLT 159 K/mm3 (150-400); RED BLOOD CELL COUNT 4.64 M/mm3 (4.52-5.90); WHITE BLOOD CELL COUNT,WBC 12.27 K/mm3 (3.9-11.3)
[2023-01-13] MEDS ORDERED: Iopamidol 612 MG/ML 100 ML Bottle IVPUSH ONE (20:43)
[2023-01-13] MEDS ORDERED: Sodium Chloride 0.9% 10 ML Syringe FLUSH ONE (20:43)
[2023-01-13 20:49] LABS: A/G RATIO 1.4 (1-2); ALBUMIN 4.1 g/dl (3.4-5.0); ANION GAP 16.2 (5-15); BILIRUBIN TOTAL 0.7 mg/dL (0.2-1.0); C-REACTIVE PROTEIN 0.7 mg/dL (<1.0); CALCIUM 9.7 mg/dL (8.5-10.1); EST CRCL DRUG DOSING (CG) 57.96 mL/min; POTASSIUM,K 4.2 mEq/L (3.5-5.1); PROTEIN TOTAL,TP 7.1 g/dl (6.4-8.2)
[2023-01-13 22:22] LABS: APPEARANCE,URINE CLEAR (Clear); BILIRUBIN,URINE NEGATIVE (Negative); COLOR,URINE YELLOW (Yellow); GLUCOSE,URINE NEGATIVE (Negative); KETONES,URINE TRACE (Negative); LEUKOCYTE ESTERASE,URINE NEGATIVE (Negative); NITRITE,URINE NEGATIVE (Negative); OCCULT BLOOD,URINE NEGATIVE (Negative); PH,URINE 5.5 (5.0-8.0); PROTEIN,URINE NEGATIVE (Negative); UROBILINOGEN,URINE 0.2 (0.2-1.0)
[2023-01-13 22:30] LABS: BACTERIA,URINE FEW /hpf (FEW); MUCUS,URINE FEW /hpf (FEW); RBC,URINE 0-5 /hpf (0-5); SQUAMOUS EPITHELIAL CELLS,UR 0-5 /hpf (0-5)
[2023-01-14 01:29] VITALS: BP 116/67; PULSE 84
== END 2023-01-14 01:20 | disposition home or self-care (01) ==
LOC: JD.ED 18:32
DX: K43.9 Ventral hernia without obstruction or gangrene (principal); K56.41 Fecal impaction; E03.9 Hypothyroidism, unspecified; Z79.899 Other long term (current) drug therapy
CPT/HCPCS: 36415; 74177; 80053; 81001; 83605; 85025; 86140; 96361; 96374; 96375; 96376; 99284; J1170; J2405; J3490; J7030; Q9967

== ENCOUNTER 2023-02-24 23:20 | Emergency (ER) | payer MEDICARE, BC ==
[2023-02-25 01:01] LABS: BASOPHILS PERCENT AUTO 0.2 % (0.0-1.0); EOSINOPHILS ABSOLUTE AUTO 0.1 K/mm3 (0.0-0.4); EOSINOPHILS PERCENT AUTO 0.3 % (0.0-6.0); HEMATOCRIT 48.2 % (42.0-52.0); HEMOGLOBIN 16.7 gm/dl (14.0-18.0); IMMATURE GRAN ABSOLUTE AUTO 0.12 K/mm3 (0.00-0.05); IMMATURE GRAN PERCENT AUTO 0.7 % (0.0-0.4); LYMPHOCYTES ABSOLUTE AUTO 1.9 K/mm3 (1.0-4.8); LYMPHOCYTES PERCENT AUTO 10.8 % (24.0-44.0); MEAN CORPUSCULAR HEMOGLOBIN 33.7 pg (28.0-32.0); MEAN CORPUSCULAR HGB CONC 34.6 g/dl (32.0-36.0); MEAN CORPUSCULAR VOLUME 97.2 fl (83.0-99.0); MEAN PLATELET VOLUME 8.8 fl (9.4-12.4); MONOCYTES ABSOLUTE AUTO 1.4 K/mm3 (0.0-0.8); PLATELET COUNT,PLT 204 K/mm3 (150-400); RED BLOOD CELL COUNT 4.96 M/mm3 (4.52-5.90); WHITE BLOOD CELL COUNT,WBC 17.48 K/mm3 (3.9-11.3)
[2023-02-25 01:11] LABS: A/G RATIO 1.5 (1-2); ALBUMIN 4.5 g/dl (3.4-5.0); ANION GAP 16.3 (5-15); BILIRUBIN TOTAL 0.8 mg/dL (0.2-1.0); BUN/CREATININE RATIO 23.6 (14-18); CALCIUM 10.5 mg/dL (8.5-10.1); CREATININE 1.1 mg/dL (0.7-1.3); EST CRCL DRUG DOSING (CG) 51.49 mL/min; POTASSIUM,K 4.3 mEq/L (3.5-5.1); PROTEIN TOTAL,TP 7.5 g/dl (6.4-8.2)
[2023-02-25 02:20] VITALS: BP 108/68; PULSE 70
== END 2023-02-25 02:06 | disposition home or self-care (01) ==
LOC: JD.ED 23:20
DX: K56.609 Unspecified intestinal obstruction, unspecified as to partial versus complete obstruction (principal); K59.00 Constipation, unspecified; E03.9 Hypothyroidism, unspecified; Z79.899 Other long term (current) drug therapy
CPT/HCPCS: 36415; 74019; 74019-26; 74022; 74022-26; 80053; 85025; 99282; 99284

== ENCOUNTER 2023-05-20 02:17 | Inpatient (IN) | payer MEDICARE, BC ==
[2023-05-20] MEDS ORDERED: Sodium Chloride 0.9% 10 ML Syringe FLUSH PRN (02:46)
[2023-05-20] MEDS ORDERED: Naloxone 0.4 MG/ML SDV IVPUSH PRN (02:48)
[2023-05-20 03:11] LABS: BASOPHILS PERCENT AUTO 0.2 % (0.0-1.0); EOSINOPHILS ABSOLUTE AUTO 0.1 K/mm3 (0.0-0.4); EOSINOPHILS PERCENT AUTO 0.9 % (0.0-6.0); HEMATOCRIT 44.6 % (42.0-52.0); HEMOGLOBIN 15.6 gm/dl (14.0-18.0); IMMATURE GRAN ABSOLUTE AUTO 0.05 K/mm3 (0.00-0.05); IMMATURE GRAN PERCENT AUTO 0.4 % (0.0-0.4); LYMPHOCYTES PERCENT AUTO 7.2 % (24.0-44.0); MEAN CORPUSCULAR HEMOGLOBIN 33.3 pg (28.0-32.0); MEAN CORPUSCULAR VOLUME 95.3 fl (83.0-99.0); MEAN PLATELET VOLUME 8.6 fl (9.4-12.4); MONOCYTES ABSOLUTE AUTO 1.4 K/mm3 (0.0-0.8); MONOCYTES PERCENT AUTO 9.8 % (0.0-8.0); NEUTROPHILS ABSOLUTE AUTO 11.5 K/mm3 (1.8-7.7); NEUTROPHILS PERCENT AUTO 81.5 % (41.0-71.0); PLATELET COUNT,PLT 140 K/mm3 (150-400); RED BLOOD CELL COUNT 4.68 M/mm3 (4.52-5.90); WHITE BLOOD CELL COUNT,WBC 14.09 K/mm3 (3.9-11.3)
[2023-05-20] MEDS: Ondansetron 4 MG/2 ML SDV IVPUSH ONE (03:18)
[2023-05-20] MEDS: Sodium Chloride 0.9% 1,000 ML IV SCH (03:18)
[2023-05-20] MEDS: Morphine 2 MG/ML SYRINGE IVPUSH ONE (03:22)
[2023-05-20 03:41] LABS: A/G RATIO 1.4 (1-2); ALBUMIN 3.9 g/dl (3.4-5.0); ANION GAP 14.5 (5-15); BILIRUBIN TOTAL 0.7 mg/dL (0.2-1.0); BUN/CREATININE RATIO 28.2 (14-18); CREATININE 1.1 mg/dL (0.7-1.3); EST CRCL DRUG DOSING (CG) 52.3 mL/min; MAGNESIUM 1.9 mg/dL (1.8-2.4); POTASSIUM,K 4.5 mEq/L (3.5-5.1); PROTEIN TOTAL,TP 6.6 g/dl (6.4-8.2)
[2023-05-20 03:56] LABS: APPEARANCE,URINE CLEAR (Clear); BILIRUBIN,URINE 1+ (Negative); COLOR,URINE DARK YELLOW (Yellow); GLUCOSE,URINE NEGATIVE (Negative); KETONES,URINE 1+ (Negative); LEUKOCYTE ESTERASE,URINE TRACE (Negative); NITRITE,URINE NEGATIVE (Negative); OCCULT BLOOD,URINE NEGATIVE (Negative); PH,URINE 5.5 (5.0-8.0); PROTEIN,URINE 1+ (Negative); UROBILINOGEN,URINE 0.2 (0.2-1.0)
[2023-05-20 04:09] LABS: EPITHELIAL CELLS,URINE 0-5 /hpf (0-5); RBC,URINE 0-5 /hpf (0-5)
[2023-05-20 04:10] LABS: BACTERIA,URINE FEW /hpf (FEW); MUCUS,URINE FEW /hpf (FEW)
[2023-05-20] MEDS: cefTRIAXone 1 GM in Sodium Chloride 0.9% 100 ML IV ONE (05:08)
[2023-05-20] MEDS: Heparin Sodium 5,000 Units/ML Vial SUBCUT SCH (11:58)
[2023-05-20] MEDS: Sertraline 50 MG Tab PO SCH (11:59)
[2023-05-20] MEDS: Amantadine 100 MG Cap PO SCH (11:59)
[2023-05-20] MEDS: Acetaminophen 325 MG Tab PO PRN (11:59)
[2023-05-20] MEDS: Docusate Sodium 100 MG Cap PO PRN (12:00)
[2023-05-20] MEDS: Levothyroxine 100 MCG Tab PO SCH (12:00)
[2023-05-20] MEDS: Carbidopa/Levodopa 25-100 MG Tab PO SCH (12:00)
[2023-05-20] MEDS: Polyethylene Glycol 3350 Powder 17 GM Packet PO SCH (12:00)
[2023-05-20] MEDS ORDERED: Carbidopa/Levodopa 25-100 MG Tab PO SCH (15:00)
[2023-05-20] MEDS ORDERED: Non-Formulary Medication 1 Each (Carbidopa/Levodopa [Rytary Er 48.75 Mg-195 Mg Cap] 1 EACH PO SCH (15:00)
[2023-05-20] MEDS: ENTACAPONE 200 MG PO SCH (15:27)
[2023-05-20] MEDS: RYTARY PO SCH (15:28)
[2023-05-20] MEDS ORDERED: Non-Formulary Medication 1 Each (Acetaminophen 500 MG Tablet) PO SCH (21:00)
[2023-05-20] MEDS: ClonazePAM 0.5 MG Tab PO SCH (21:21)
[2023-05-21] MEDS ORDERED: cefTRIAXone 1 GM in Sodium Chloride 0.9% 100 ML IV SCH (05:00)
[2023-05-21 06:15] LABS: BASOPHILS PERCENT AUTO 0.3 % (0.0-1.0); EOSINOPHILS ABSOLUTE AUTO 0.2 K/mm3 (0.0-0.4); EOSINOPHILS PERCENT AUTO 3.6 % (0.0-6.0); HEMATOCRIT 39.8 % (42.0-52.0); HEMOGLOBIN 13.6 gm/dl (14.0-18.0); IMMATURE GRAN ABSOLUTE AUTO 0.03 K/mm3 (0.00-0.05); IMMATURE GRAN PERCENT AUTO 0.5 % (0.0-0.4); LYMPHOCYTES ABSOLUTE AUTO 2.1 K/mm3 (1.0-4.8); LYMPHOCYTES PERCENT AUTO 33.5 % (24.0-44.0); MEAN CORPUSCULAR HEMOGLOBIN 33.3 pg (28.0-32.0); MEAN CORPUSCULAR HGB CONC 34.2 g/dl (32.0-36.0); MEAN CORPUSCULAR VOLUME 97.5 fl (83.0-99.0); MEAN PLATELET VOLUME 8.8 fl (9.4-12.4); MONOCYTES ABSOLUTE AUTO 0.8 K/mm3 (0.0-0.8); MONOCYTES PERCENT AUTO 12.4 % (0.0-8.0); NEUTROPHILS ABSOLUTE AUTO 3.2 K/mm3 (1.8-7.7); NEUTROPHILS PERCENT AUTO 49.7 % (41.0-71.0); PLATELET COUNT,PLT 134 K/mm3 (150-400); RED BLOOD CELL COUNT 4.08 M/mm3 (4.52-5.90); WHITE BLOOD CELL COUNT,WBC 6.39 K/mm3 (3.9-11.3)
[2023-05-21 06:32] LABS: A/G RATIO 1.4 (1-2); ALBUMIN 3.1 g/dl (3.4-5.0); ALKALINE PHOSPHATASE 67 U/L (46-116); ANION GAP 11.2 (5-15); ASPARTATE AMNIOTRANSFERASE,AST 12 U/L (15-37); BILIRUBIN TOTAL 0.8 mg/dL (0.2-1.0); BLOOD UREA NITROGEN,BUN 16 mg/dL (7-18); CALCIUM 8.4 mg/dL (8.5-10.1); CARBON DIOXIDE,CO2 25 mEq/L (21-32); CHLORIDE,CL 110 mEq/L (98-107); CREATININE 0.8 mg/dL (0.7-1.3); EST CRCL DRUG DOSING (CG) 73.02 mL/min; ESTIMATED GFR 90 mL/min (>60); GLUCOSE RANDOM 84 mg/dL (70-99); POTASSIUM,K 4.2 mEq/L (3.5-5.1); PROTEIN TOTAL,TP 5.4 g/dl (6.4-8.2); SODIUM,NA 142 mEq/L (136-145)
[2023-05-21 06:46] LABS: ALANINE AMINOTRANSFERASE,ALT < 6 U/L (16-63)
[2023-05-21] MEDS: Sennosides/Docusate Sodium 50-8.6 MG Tab PO ONE (15:28)
[2023-05-21] MEDS: Bisacodyl 10 MG Supp RECTAL ONE (15:29)
[2023-05-21] MEDS: Sennosides/Docusate Sodium 50-8.6 MG Tab PO SCH (21:56)
[2023-05-22 06:41] LABS: BASOPHILS PERCENT AUTO 0.4 % (0.0-1.0); EOSINOPHILS ABSOLUTE AUTO 0.3 K/mm3 (0.0-0.4); EOSINOPHILS PERCENT AUTO 4.7 % (0.0-6.0); HEMATOCRIT 41.4 % (42.0-52.0); HEMOGLOBIN 14.3 gm/dl (14.0-18.0); IMMATURE GRAN ABSOLUTE AUTO 0.04 K/mm3 (0.00-0.05); IMMATURE GRAN PERCENT AUTO 0.6 % (0.0-0.4); LYMPHOCYTES ABSOLUTE AUTO 2.4 K/mm3 (1.0-4.8); LYMPHOCYTES PERCENT AUTO 34.8 % (24.0-44.0); MEAN CORPUSCULAR HEMOGLOBIN 32.9 pg (28.0-32.0); MEAN CORPUSCULAR HGB CONC 34.5 g/dl (32.0-36.0); MEAN CORPUSCULAR VOLUME 95.2 fl (83.0-99.0); MONOCYTES ABSOLUTE AUTO 0.9 K/mm3 (0.0-0.8); MONOCYTES PERCENT AUTO 13.8 % (0.0-8.0); NEUTROPHILS ABSOLUTE AUTO 3.1 K/mm3 (1.8-7.7); NEUTROPHILS PERCENT AUTO 45.7 % (41.0-71.0); PLATELET COUNT,PLT 137 K/mm3 (150-400); RED BLOOD CELL COUNT 4.35 M/mm3 (4.52-5.90); WHITE BLOOD CELL COUNT,WBC 6.83 K/mm3 (3.9-11.3)
[2023-05-22 07:15] LABS: A/G RATIO 1.4 (1-2); ALBUMIN 3.4 g/dl (3.4-5.0); ALKALINE PHOSPHATASE 70 U/L (46-116); ANION GAP 15.9 (5-15); ASPARTATE AMNIOTRANSFERASE,AST 14 U/L (15-37); BILIRUBIN TOTAL 0.8 mg/dL (0.2-1.0); BLOOD UREA NITROGEN,BUN 15 mg/dL (7-18); BUN/CREATININE RATIO 18.8 (14-18); C-REACTIVE PROTEIN 1.7 mg/dL (<1.0); CALCIUM 8.7 mg/dL (8.5-10.1); CARBON DIOXIDE,CO2 25 mEq/L (21-32); CHLORIDE,CL 105 mEq/L (98-107); CREATININE 0.8 mg/dL (0.7-1.3); EST CRCL DRUG DOSING (CG) 72.54 mL/min; ESTIMATED GFR 90 mL/min (>60); GLUCOSE RANDOM 79 mg/dL (70-99); MAGNESIUM 1.9 mg/dL (1.8-2.4); POTASSIUM,K 3.9 mEq/L (3.5-5.1); PROTEIN TOTAL,TP 5.8 g/dl (6.4-8.2); SODIUM,NA 142 mEq/L (136-145)
[2023-05-22 07:26] LABS: ALANINE AMINOTRANSFERASE,ALT < 6 U/L (16-63)
[2023-05-22] MEDS: Bisacodyl 10 MG Supp RECTAL SCH (10:07)
[2023-05-22 11:01] VITALS: BP 110/74; PULSE 56
== END 2023-05-22 12:28 | disposition home or self-care (01) | DRG 390 ==
LOC: JD.ED 02:17 → JD.MS 05:36
PROVIDERS: ADMIT Student in an Organized Health Care Education/Training Program; ATTEND Student in an Organized Health Care Education/Training Program
DX: K56.609 Unspecified intestinal obstruction, unspecified as to partial versus complete obstruction (principal); N30.00 Acute cystitis without hematuria; K52.9 Noninfective gastroenteritis and colitis, unspecified; M62.08 Separation of muscle (nontraumatic), other site; G20.A1 Parkinson's disease without dyskinesia, without mention of fluctuations; E03.9 Hypothyroidism, unspecified; K43.2 Incisional hernia without obstruction or gangrene; K59.09 Other constipation; H91.90 Unspecified hearing loss, unspecified ear; K43.9 Ventral hernia without obstruction or gangrene; G47.30 Sleep apnea, unspecified; F32.89 Other specified depressive episodes; Z79.890 Hormone replacement therapy; Z90.49 Acquired absence of other specified parts of digestive tract; Z79.899 Other long term (current) drug therapy; Z98.49 Cataract extraction status, unspecified eye; Z87.891 Personal history of nicotine dependence; Z98.890 Other specified postprocedural states
CPT/HCPCS: 36415; 74176; 80053; 81001; 83690; 83735; 85025; 96361; 96365; 96375; 99285; J0696; J2270; J2405; J3490; J7030; 83605; 84145; 86140; 97116-GP; 97162-GP; 99223; 99232; 99239; A9270-GY; J1644

== ENCOUNTER 2023-07-20 04:21 | Inpatient (IN) | payer MEDICARE, BC ==
[2023-07-20] MEDS: Ondansetron 4 MG/2 ML SDV IVPUSH ONE (05:07)
[2023-07-20] MEDS: Morphine 4 MG/ML Syringe IVPUSH ONE ×3 (05:07→08:27)
[2023-07-20] MEDS: Diatrizoate Meglumine/Diatrizoate Sodium 37% 120 ML Bottle PO ONE (05:08)
[2023-07-20] MEDS: Iopamidol 612 MG/ML 100 ML Bottle IVPUSH ONE (05:09)
[2023-07-20] MEDS ORDERED: Sodium Chloride 0.9% 10 ML Syringe FLUSH PRN (05:09)
[2023-07-20 05:25] LABS: INR 1.04; PROTHROMBIN TIME 11.1 SECONDS (9.7-12.0)
[2023-07-20 05:26] LABS: PTT,PARTIAL THROMBOPLSTIN TIME 28.6 SECONDS (21.7-31.4)
[2023-07-20 05:27] LABS: A/G RATIO 1.3 (1-2); ALBUMIN 4.3 g/dl (3.4-5.0); ANION GAP 17.3 (5-15); BASOPHILS PERCENT AUTO 0.2 % (0.0-1.0); BILIRUBIN TOTAL 0.9 mg/dL (0.2-1.0); BUN/CREATININE RATIO 26.7 (14-18); CALCIUM 9.8 mg/dL (8.5-10.1); CREATININE 1.2 mg/dL (0.7-1.3); EOSINOPHILS PERCENT AUTO 0.3 % (0.0-6.0); EST CRCL DRUG DOSING (CG) 45.51 mL/min; HEMATOCRIT 48.9 % (42.0-52.0); HEMOGLOBIN 16.9 gm/dl (14.0-18.0); IMMATURE GRAN ABSOLUTE AUTO 0.08 K/mm3 (0.00-0.05); IMMATURE GRAN PERCENT AUTO 0.6 % (0.0-0.4); LYMPHOCYTES ABSOLUTE AUTO 1.6 K/mm3 (1.0-4.8); LYMPHOCYTES PERCENT AUTO 11.6 % (24.0-44.0); MEAN CORPUSCULAR HEMOGLOBIN 32.8 pg (28.0-32.0); MEAN CORPUSCULAR HGB CONC 34.6 g/dl (32.0-36.0); MEAN CORPUSCULAR VOLUME 94.8 fl (83.0-99.0); MEAN PLATELET VOLUME 8.8 fl (9.4-12.4); MONOCYTES ABSOLUTE AUTO 1.1 K/mm3 (0.0-0.8); MONOCYTES PERCENT AUTO 7.9 % (0.0-8.0); NEUTROPHILS ABSOLUTE AUTO 10.7 K/mm3 (1.8-7.7); NEUTROPHILS PERCENT AUTO 79.4 % (41.0-71.0); PLATELET COUNT,PLT 201 K/mm3 (150-400); POTASSIUM,K 4.3 mEq/L (3.5-5.1); PROTEIN TOTAL,TP 7.5 g/dl (6.4-8.2); RED BLOOD CELL COUNT 5.16 M/mm3 (4.52-5.90); WHITE BLOOD CELL COUNT,WBC 13.45 K/mm3 (3.9-11.3)
[2023-07-20] MEDS: Sodium Chloride 0.9% 1,000 ML IV SCH (06:17)
[2023-07-20] MEDS: Sodium Chloride 0.9% 10 ML Syringe FLUSH PRN (06:49)
[2023-07-20] MEDS ORDERED: Naloxone 0.4 MG/ML SDV IVPUSH PRN (08:19)
[2023-07-20] MEDS ORDERED: Morphine 2 MG/ML SYRINGE IVPUSH PRN (08:54)
[2023-07-20] MEDS ORDERED: Ondansetron 4 MG/2 ML SDV IV PRN (08:54)
[2023-07-20] MEDS: Enoxaparin 40 MG/0.4 ML Syringe SUBCUT SCH (09:29)
[2023-07-20] MEDS: Pantoprazole 40 MG Vial IVPUSH SCH (09:29)
[2023-07-20] MEDS: Benzocaine 20% Topical Spray UD MUCMEM ONE (10:06)
[2023-07-20] MEDS: HYDROmorphone 0.5 MG/0.5 ML Syringe IVPUSH PRN (10:06)
[2023-07-20] MEDS ORDERED: Heparin Sodium 5,000 Units/ML Vial SUBCUT SCH (12:00)
[2023-07-20] MEDS ORDERED: Benzocaine 20% Topical Spray UD MUCMEM PRN (12:04)
[2023-07-20] MEDS: ENTACAPONE 200 MG PO SCH (12:06)
[2023-07-20] MEDS: HYDROmorphone 0.5 MG/0.5 ML Syringe IVPUSH ONE (12:45)
[2023-07-20 13:25] LABS: BASOPHILS PERCENT AUTO 0.2 % (0.0-1.0); HEMATOCRIT 46.8 % (42.0-52.0); HEMOGLOBIN 16.3 gm/dl (14.0-18.0); IMMATURE GRAN ABSOLUTE AUTO 0.09 K/mm3 (0.00-0.05); IMMATURE GRAN PERCENT AUTO 0.7 % (0.0-0.4); LYMPHOCYTES ABSOLUTE AUTO 1.4 K/mm3 (1.0-4.8); LYMPHOCYTES PERCENT AUTO 10.5 % (24.0-44.0); MEAN CORPUSCULAR HEMOGLOBIN 33.7 pg (28.0-32.0); MEAN CORPUSCULAR HGB CONC 34.8 g/dl (32.0-36.0); MEAN CORPUSCULAR VOLUME 96.7 fl (83.0-99.0); MEAN PLATELET VOLUME 9.2 fl (9.4-12.4); MONOCYTES ABSOLUTE AUTO 1.1 K/mm3 (0.0-0.8); MONOCYTES PERCENT AUTO 8.2 % (0.0-8.0); NEUTROPHILS ABSOLUTE AUTO 10.6 K/mm3 (1.8-7.7); NEUTROPHILS PERCENT AUTO 80.4 % (41.0-71.0); PLATELET COUNT,PLT 177 K/mm3 (150-400); RED BLOOD CELL COUNT 4.84 M/mm3 (4.52-5.90); WHITE BLOOD CELL COUNT,WBC 13.15 K/mm3 (3.9-11.3)
[2023-07-20] MEDS: Sertraline 50 MG Tab PO SCH (13:34)
[2023-07-20] MEDS: RYTARY PO SCH (13:37)
[2023-07-20] MEDS: D5 1/2 NS w/ 20 mEq/L KCl 1,000 ML IV SCH (16:40)
[2023-07-20] MEDS ORDERED: ClonazePAM 0.5 MG Tab PO SCH (21:00)
[2023-07-21 04:54] LABS: BASOPHILS PERCENT AUTO 0.2 % (0.0-1.0); EOSINOPHILS ABSOLUTE AUTO 0.1 K/mm3 (0.0-0.4); EOSINOPHILS PERCENT AUTO 0.6 % (0.0-6.0); HEMOGLOBIN 12.8 gm/dl (14.0-18.0); IMMATURE GRAN ABSOLUTE AUTO 0.04 K/mm3 (0.00-0.05); IMMATURE GRAN PERCENT AUTO 0.4 % (0.0-0.4); LYMPHOCYTES ABSOLUTE AUTO 2.3 K/mm3 (1.0-4.8); LYMPHOCYTES PERCENT AUTO 23.9 % (24.0-44.0); MEAN CORPUSCULAR HEMOGLOBIN 32.2 pg (28.0-32.0); MEAN CORPUSCULAR HGB CONC 33.7 g/dl (32.0-36.0); MEAN CORPUSCULAR VOLUME 95.5 fl (83.0-99.0); MEAN PLATELET VOLUME 8.8 fl (9.4-12.4); MONOCYTES ABSOLUTE AUTO 1.4 K/mm3 (0.0-0.8); NEUTROPHILS ABSOLUTE AUTO 5.7 K/mm3 (1.8-7.7); NEUTROPHILS PERCENT AUTO 59.9 % (41.0-71.0); PLATELET COUNT,PLT 143 K/mm3 (150-400); RED BLOOD CELL COUNT 3.98 M/mm3 (4.52-5.90); WHITE BLOOD CELL COUNT,WBC 9.58 K/mm3 (3.9-11.3)
[2023-07-21 05:28] LABS: A/G RATIO 1.2 (1-2); ALBUMIN 2.8 g/dl (3.4-5.0); ANION GAP 13.2 (5-15); BILIRUBIN TOTAL 0.8 mg/dL (0.2-1.0); BUN/CREATININE RATIO 28.8 (14-18); CREATININE 0.8 mg/dL (0.7-1.3); MAGNESIUM 1.6 mg/dL (1.8-2.4); POTASSIUM,K 4.2 mEq/L (3.5-5.1); PROTEIN TOTAL,TP 5.2 g/dl (6.4-8.2)
[2023-07-21 05:51] LABS: CALCIUM 8.3 mg/dL (8.5-10.1)
[2023-07-21] MEDS ORDERED: Levothyroxine 100 MCG Tab PO SCH (06:00)
[2023-07-21] MEDS: Heparin Sodium 5,000 Units/ML Vial SUBCUT SCH (08:40)
[2023-07-21] MEDS: Magnesium Sulfate/Water 2 GM in Premix Bag 1 BAG IV ONE (09:13)
[2023-07-21] MEDS: ENTACAPONE 200 MG PO SCH (16:29)
[2023-07-21] MEDS: LEVODOPA PO SCH (16:29)
[2023-07-21] MEDS: [UNRECOGNIZED DRUG - OTHER] PO SCH (16:29)
[2023-07-21] MEDS: CARBIDOPA PO SCH (16:29)
[2023-07-21] MEDS: Amantadine 100 MG Cap PO SCH (21:24)
[2023-07-22] MEDS: Acetaminophen 325 MG Tab PO PRN (00:51)
[2023-07-22 04:45] LABS: BASOPHILS PERCENT AUTO 0.2 % (0.0-1.0); EOSINOPHILS ABSOLUTE AUTO 0.1 K/mm3 (0.0-0.4); EOSINOPHILS PERCENT AUTO 1.2 % (0.0-6.0); HEMATOCRIT 40.4 % (42.0-52.0); HEMOGLOBIN 13.7 gm/dl (14.0-18.0); IMMATURE GRAN ABSOLUTE AUTO 0.03 K/mm3 (0.00-0.05); IMMATURE GRAN PERCENT AUTO 0.4 % (0.0-0.4); LYMPHOCYTES ABSOLUTE AUTO 2.8 K/mm3 (1.0-4.8); LYMPHOCYTES PERCENT AUTO 33.7 % (24.0-44.0); MEAN CORPUSCULAR HEMOGLOBIN 32.1 pg (28.0-32.0); MEAN CORPUSCULAR HGB CONC 33.9 g/dl (32.0-36.0); MEAN CORPUSCULAR VOLUME 94.6 fl (83.0-99.0); MEAN PLATELET VOLUME 9.2 fl (9.4-12.4); MONOCYTES ABSOLUTE AUTO 1.2 K/mm3 (0.0-0.8); MONOCYTES PERCENT AUTO 14.9 % (0.0-8.0); NEUTROPHILS ABSOLUTE AUTO 4.1 K/mm3 (1.8-7.7); NEUTROPHILS PERCENT AUTO 49.6 % (41.0-71.0); PLATELET COUNT,PLT 154 K/mm3 (150-400); RED BLOOD CELL COUNT 4.27 M/mm3 (4.52-5.90)
[2023-07-22 05:26] LABS: A/G RATIO 1.2 (1-2); ALBUMIN 3.1 g/dl (3.4-5.0); ANION GAP 12.1 (5-15); BUN/CREATININE RATIO 16.3 (14-18); CALCIUM 8.6 mg/dL (8.5-10.1); CREATININE 0.8 mg/dL (0.7-1.3); EST CRCL DRUG DOSING (CG) 70.85 mL/min; MAGNESIUM 1.9 mg/dL (1.8-2.4); POTASSIUM,K 4.1 mEq/L (3.5-5.1); PROTEIN TOTAL,TP 5.8 g/dl (6.4-8.2)
[2023-07-22] MEDS: Pantoprazole 40 MG Tab.CR PO SCH (08:08)
[2023-07-22] MEDS: Tamsulosin 0.4 MG Cap.ER PO SCH (09:50)
[2023-07-22] MEDS: Benzocaine 20% Topical Spray UD MUCMEM ONE (10:49)
[2023-07-22] MEDS ORDERED: D5 1/2 NS w/ 20 mEq/L KCl 1,000 ML IV SCH (12:15)
[2023-07-22] MEDS: Dextrose 5%-0.9% NaCl 1,000 ML IV SCH (16:29)
[2023-07-22 20:31] VITALS: BP 138/90; PULSE 55
== END 2023-07-22 19:53 | DRG 389 ==
LOC: JD.ED 04:21 → JD.MS 08:23
PROVIDERS: ADMIT Student in an Organized Health Care Education/Training Program; ATTEND Student in an Organized Health Care Education/Training Program
PROC: 0D9670Z Drainage of Stomach with Drainage Device, Via Natural or Artificial Opening (ICD-10-PCS; principal; 2023-07-20)
PROC: 0T9B70Z Drainage of Bladder with Drainage Device, Via Natural or Artificial Opening (ICD-10-PCS; 2023-07-21)
DX: K56.609 Unspecified intestinal obstruction, unspecified as to partial versus complete obstruction (principal); M48.54XA Collapsed vertebra, not elsewhere classified, thoracic region, initial encounter for fracture; G20.A1 Parkinson's disease without dyskinesia, without mention of fluctuations; E83.42 Hypomagnesemia; K43.9 Ventral hernia without obstruction or gangrene; E03.9 Hypothyroidism, unspecified; G47.30 Sleep apnea, unspecified; K59.09 Other constipation; F32.89 Other specified depressive episodes; R33.9 Retention of urine, unspecified; Z90.49 Acquired absence of other specified parts of digestive tract; Z98.49 Cataract extraction status, unspecified eye; Z98.890 Other specified postprocedural states; Z79.890 Hormone replacement therapy; Z79.899 Other long term (current) drug therapy; Z87.442 Personal history of urinary calculi; Z87.891 Personal history of nicotine dependence
CPT/HCPCS: 36415; 51701; 51702; 51798; 71045; 71045-26; 71250; 71250-26; 74018; 74018-26; 74178; 74178-26; 80053; 82947; 83605; 83735; 85025; 85610; 85730; 86850; 86900; 86901; 96361; 96374; 96375; 96376; 97110-GP; 97161-GP; 99223; 99232; 99239; 99284; 99285-25; A9270-GY; C1758; C9113; J1170; J1644; J1650; J2270; J2405; J3475; J3480; J3490; J7030; J7042; Q9963; Q9967

== ENCOUNTER 2023-12-01 12:04 | Emergency (ER) | payer MEDICARE, BC ==
[2023-12-01] MEDS: Lidocaine 1% 10 ML MDV INJECT ONE (13:10)
[2023-12-01 16:43] VITALS: BP 128/78; PULSE 57
== END 2023-12-01 13:47 | disposition home or self-care (01) ==
LOC: JD.ED 12:04
DX: S01.112A Laceration without foreign body of left eyelid and periocular area, initial encounter (principal); S09.90XA Unspecified injury of head, initial encounter; E03.9 Hypothyroidism, unspecified; Z79.899 Other long term (current) drug therapy; W01.198A Fall on same level from slipping, tripping and stumbling with subsequent striking against other object, initial encounter
CPT/HCPCS: 12011; 70450; 70450-26; 99283; J3490

== ENCOUNTER 2024-01-06 10:51 | Emergency (ER) | payer MEDICARE, BC ==
[2024-01-06] MEDS ORDERED: HYDROmorphone 1 MG/ML Syringe IVPUSH ONE (13:49)
[2024-01-06] MEDS: HYDROmorphone 0.5 MG/0.5 ML Syringe IVPUSH ONE (14:05)
[2024-01-06 20:24] VITALS: BP 132/84; PULSE 57
== END 2024-01-06 14:30 ==
LOC: JD.ED 10:51
DX: S72.141A Displaced intertrochanteric fracture of right femur, initial encounter for closed fracture (principal); E03.9 Hypothyroidism, unspecified; Z79.890 Hormone replacement therapy; Z79.899 Other long term (current) drug therapy; W19.XXXA Unspecified fall, initial encounter
CPT/HCPCS: 73502-26-RT; 73502-RT; 96374; 99284-25

== ENCOUNTER 2024-03-26 14:20 | Inpatient (IN) | payer MEDICARE, BC ==
[2024-03-26 16:06] LABS: BASOPHILS PERCENT AUTO 0.2 % (0.0-1.0); EOSINOPHILS PERCENT AUTO 0.3 % (0.0-6.0); HEMATOCRIT 37.6 % (42.0-52.0); HEMOGLOBIN 12.4 gm/dl (14.0-18.0); IMMATURE GRAN ABSOLUTE AUTO 0.07 K/mm3 (0.00-0.05); IMMATURE GRAN PERCENT AUTO 0.5 % (0.0-0.4); LYMPHOCYTES ABSOLUTE AUTO 2.5 K/mm3 (1.0-4.8); LYMPHOCYTES PERCENT AUTO 18.1 % (24.0-44.0); MEAN CORPUSCULAR HEMOGLOBIN 31.7 pg (28.0-32.0); MEAN CORPUSCULAR VOLUME 96.2 fl (83.0-99.0); MEAN PLATELET VOLUME 8.6 fl (9.4-12.4); MONOCYTES ABSOLUTE AUTO 1.2 K/mm3 (0.0-0.8); MONOCYTES PERCENT AUTO 8.7 % (0.0-8.0); NEUTROPHILS ABSOLUTE AUTO 9.8 K/mm3 (1.8-7.7); NEUTROPHILS PERCENT AUTO 72.2 % (41.0-71.0); PLATELET COUNT,PLT 154 K/mm3 (150-400); RED BLOOD CELL COUNT 3.91 M/mm3 (4.52-5.90); WHITE BLOOD CELL COUNT,WBC 13.61 K/mm3 (3.9-11.3)
[2024-03-26 16:30] LABS: A/G RATIO 0.9 (1-2); ALBUMIN 3.3 g/dl (3.4-5.0); ANION GAP 12.4 (5-15); BILIRUBIN TOTAL 0.9 mg/dL (0.2-1.0); BUN/CREATININE RATIO 24.5 (14-18); CREATININE 1.1 mg/dL (0.7-1.3); EST CRCL DRUG DOSING (CG) 45.7 mL/min; MAGNESIUM 1.8 mg/dL (1.8-2.4); POTASSIUM,K 4.4 mEq/L (3.5-5.1); PROTEIN TOTAL,TP 6.8 g/dl (6.4-8.2)
[2024-03-26] MEDS: Sodium Chloride 0.9% 500 ML IV ONE (17:13)
[2024-03-26 18:35] LABS: CORONAVIRUS COVID-19 NAA NEGATIVE (NEGATIVE); INFLUENZA A NAA NEGATIVE (NEGATIVE); RESPIRATORY SYNCYTIAL VIR NAA NEGATIVE (NEGATIVE)
[2024-03-26] MEDS: cefTRIAXone 500 MG Vial IVPUSH ONE (20:02)
[2024-03-26 21:49] LABS: APPEARANCE,URINE CLOUDY (Clear); BILIRUBIN,URINE 1+ (Negative); COLOR,URINE AMBER (Yellow); GLUCOSE,URINE NEGATIVE (Negative); KETONES,URINE NEGATIVE (Negative); LEUKOCYTE ESTERASE,URINE 3+ (Negative); NITRITE,URINE POSITIVE (Negative); OCCULT BLOOD,URINE 2+ (Negative); PH,URINE 5.5 (5.0-8.0); PROTEIN,URINE 2+ (Negative); UROBILINOGEN,URINE 0.2 (0.2-1.0)
[2024-03-26 22:08] LABS: BACTERIA,URINE MANY /hpf (FEW); EPITHELIAL CELLS,URINE NOT SEEN /hpf (0-5); MUCUS,URINE NOT SEEN /hpf (FEW); RBC,URINE >100 /hpf (0-5); WBC CLUMPS,URINE MODERATE /hpf (NOT SEEN); WBC,URINE TOO NUMEROUS TO CNT /hpf (0-5)
[2024-03-26] MEDS ORDERED: Melatonin 3 MG Tab PO PRN (22:09)
[2024-03-26] MEDS ORDERED: Ondansetron 4 MG/2 ML SDV IV PRN (22:09)
[2024-03-26] MEDS ORDERED: Acetaminophen 325 MG Tab PO PRN (22:09)
[2024-03-26] MEDS ORDERED: Sennosides/Docusate Sodium 50-8.6 MG Tab PO PRN (22:09)
[2024-03-26] MEDS ORDERED: oxyCODONE 5 MG Tab PO PRN (22:09)
[2024-03-26 22:16] LABS: LACTIC ACID 0.6 mmol/L (0.4-2.0)
[2024-03-27 05:31] LABS: BASOPHILS ABSOLUTE AUTO 0.1 K/mm3 (0.0-0.2); BASOPHILS PERCENT AUTO 0.2 % (0.0-1.0); EOSINOPHILS PERCENT AUTO 0.1 % (0.0-6.0); HEMOGLOBIN 11.7 gm/dl (14.0-18.0); IMMATURE GRAN ABSOLUTE AUTO 0.18 K/mm3 (0.00-0.05); IMMATURE GRAN PERCENT AUTO 0.7 % (0.0-0.4); LYMPHOCYTES ABSOLUTE AUTO 2.6 K/mm3 (1.0-4.8); LYMPHOCYTES PERCENT AUTO 10.3 % (24.0-44.0); MEAN CORPUSCULAR HEMOGLOBIN 31.9 pg (28.0-32.0); MEAN CORPUSCULAR HGB CONC 33.4 g/dl (32.0-36.0); MEAN CORPUSCULAR VOLUME 95.4 fl (83.0-99.0); MEAN PLATELET VOLUME 8.7 fl (9.4-12.4); MONOCYTES ABSOLUTE AUTO 1.8 K/mm3 (0.0-0.8); MONOCYTES PERCENT AUTO 7.3 % (0.0-8.0); NEUTROPHILS ABSOLUTE AUTO 20.5 K/mm3 (1.8-7.7); NEUTROPHILS PERCENT AUTO 81.4 % (41.0-71.0); PLATELET COUNT,PLT 126 K/mm3 (150-400); RED BLOOD CELL COUNT 3.67 M/mm3 (4.52-5.90); WHITE BLOOD CELL COUNT,WBC 25.13 K/mm3 (3.9-11.3)
[2024-03-27 06:10] LABS: A/G RATIO 0.9 (1-2); ALBUMIN 2.9 g/dl (3.4-5.0); ANION GAP 11.7 (5-15); BILIRUBIN TOTAL 0.8 mg/dL (0.2-1.0); BUN/CREATININE RATIO 23.6 (14-18); C-REACTIVE PROTEIN 10.87 mg/dL (<0.30); CALCIUM 8.8 mg/dL (8.5-10.1); CREATININE 1.1 mg/dL (0.7-1.3); EST CRCL DRUG DOSING (CG) 46.39 mL/min; MAGNESIUM 1.9 mg/dL (1.8-2.4); PHOSPHORUS 3.4 mg/dL (2.6-4.7); POTASSIUM,K 3.7 mEq/L (3.5-5.1); PROTEIN TOTAL,TP 6.1 g/dl (6.4-8.2); TSH 0.556 uIU/mL (0.358-3.74)
[2024-03-27 06:26] LABS: SLIDE REVIEW ABNORMAL SMEAR
[2024-03-27] MEDS: Enoxaparin 40 MG/0.4 ML Syringe SUBCUT SCH (08:11)
[2024-03-27] MEDS: Lactated Ringers 1,000 ML IV SCH ×2 (08:12→23:17)
[2024-03-27] MEDS: Potassium Chloride 20 MEQ Tab.ER PO ONE (08:14)
[2024-03-27] MEDS: Iopamidol 612 MG/ML 100 ML Bottle IVPUSH ONE (08:56)
[2024-03-27] MEDS: Piperacillin/Tazobactam 4.5 GM in Water For Injection, Sterile 20 ML IV SCH (09:21)
[2024-03-27] MEDS: Iopamidol 755 Mg/ML 100 ML Bottle IVPUSH ONE (11:47)
[2024-03-27] MEDS: Sodium Chloride 0.9% 100 ML IV SCH (11:47)
[2024-03-27] MEDS ORDERED: Benzocaine/Cetylpyridinium/Menthol Lozenge MUCMEM PRN (13:51)
[2024-03-27] MEDS ORDERED: Bisacodyl 10 MG Supp RECTAL PRN (13:51)
[2024-03-27] MEDS ORDERED: Melatonin 3 MG Tab PO PRN (13:51)
[2024-03-27] MEDS ORDERED: Calcium Carbonate 500 MG Tab.Chew PO PRN (13:51)
[2024-03-27] MEDS ORDERED: ClonazePAM 0.5 MG Tab PO PRN (13:51)
[2024-03-27] MEDS ORDERED: Acetaminophen/oxyCODONE 325-5 MG Tab PO PRN (13:51)
[2024-03-27] MEDS: Sertraline 50 MG Tab PO SCH (14:32)
[2024-03-27] MEDS: Amantadine 100 MG Cap PO SCH (14:32)
[2024-03-27] MEDS: Carbidopa/Levodopa 10-100 MG Tab PO SCH (14:32)
[2024-03-27] MEDS: LORazepam 2 MG/ML SDV IVPUSH ONE (17:18)
[2024-03-27] MEDS ORDERED: cefTRIAXone 1 GM Vial IM SCH (20:00)
[2024-03-27] MEDS: Famotidine 20 MG/2 ML SDV IVPUSH SCH (20:55)
[2024-03-27] MEDS: ENTACAPONE 200 MG PO SCH (20:55)
[2024-03-27] MEDS: Aspirin 81 MG Tab.Chew PO SCH (20:55)
[2024-03-27] MEDS: Chlorhexidine Gluconate 0.12% Oral Rinse 118 ML Bottle MM SCH (20:57)
[2024-03-28 05:45] LABS: BASOPHILS PERCENT AUTO 0.2 % (0.0-1.0); EOSINOPHILS ABSOLUTE AUTO 0.1 K/mm3 (0.0-0.4); EOSINOPHILS PERCENT AUTO 1.1 % (0.0-6.0); HEMATOCRIT 36.6 % (42.0-52.0); HEMOGLOBIN 11.7 gm/dl (14.0-18.0); IMMATURE GRAN ABSOLUTE AUTO 0.08 K/mm3 (0.00-0.05); IMMATURE GRAN PERCENT AUTO 0.6 % (0.0-0.4); LYMPHOCYTES ABSOLUTE AUTO 3.1 K/mm3 (1.0-4.8); LYMPHOCYTES PERCENT AUTO 23.8 % (24.0-44.0); MEAN CORPUSCULAR HEMOGLOBIN 32.1 pg (28.0-32.0); MEAN PLATELET VOLUME 9.1 fl (9.4-12.4); MONOCYTES ABSOLUTE AUTO 1.5 K/mm3 (0.0-0.8); MONOCYTES PERCENT AUTO 11.9 % (0.0-8.0); NEUTROPHILS ABSOLUTE AUTO 8.1 K/mm3 (1.8-7.7); NEUTROPHILS PERCENT AUTO 62.4 % (41.0-71.0); PLATELET COUNT,PLT 134 K/mm3 (150-400); RED BLOOD CELL COUNT 3.65 M/mm3 (4.52-5.90); WHITE BLOOD CELL COUNT,WBC 12.94 K/mm3 (3.9-11.3)
[2024-03-28 06:00] LABS: A/G RATIO 0.9 (1-2); ALBUMIN 2.7 g/dl (3.4-5.0); ALKALINE PHOSPHATASE 113 U/L (46-116); ANION GAP 10.9 (5-15); ASPARTATE AMNIOTRANSFERASE,AST 21 U/L (15-37); BILIRUBIN TOTAL 0.7 mg/dL (0.2-1.0); BLOOD UREA NITROGEN,BUN 27 mg/dL (7-18); C-REACTIVE PROTEIN 10.95 mg/dL (<0.30); CARBON DIOXIDE,CO2 27 mEq/L (21-32); CHLORIDE,CL 106 mEq/L (98-107); EST CRCL DRUG DOSING (CG) 51.82 mL/min; ESTIMATED GFR 76 mL/min (>60); GLUCOSE RANDOM 84 mg/dL (70-99); PHOSPHORUS 2.9 mg/dL (2.6-4.7); POTASSIUM,K 3.9 mEq/L (3.5-5.1); PROTEIN TOTAL,TP 5.8 g/dl (6.4-8.2); SODIUM,NA 140 mEq/L (136-145)
[2024-03-28 06:06] LABS: MEAN CORPUSCULAR VOLUME 100.3 fl (83.0-99.0)
[2024-03-28] MEDS: Levothyroxine 100 MCG Tab PO SCH (06:13)
[2024-03-28 06:31] LABS: ALANINE AMINOTRANSFERASE,ALT < 6 U/L (16-63)
[2024-03-28] MEDS: Saccharomyces Boulardii (Probiotic) 250 MG Cap PO SCH (08:04)
[2024-03-28 09:29] LABS: SLIDE REVIEW ABNORMAL SMEAR
[2024-03-28] MEDS: Piperacillin/Tazobactam 4.5 GM Vial IV SCH (13:31)
[2024-03-29 04:29] LABS: BASOPHILS PERCENT AUTO 0.3 % (0.0-1.0); EOSINOPHILS ABSOLUTE AUTO 0.2 K/mm3 (0.0-0.4); EOSINOPHILS PERCENT AUTO 2.1 % (0.0-6.0); HEMATOCRIT 35.7 % (42.0-52.0); HEMOGLOBIN 11.5 gm/dl (14.0-18.0); IMMATURE GRAN ABSOLUTE AUTO 0.07 K/mm3 (0.00-0.05); IMMATURE GRAN PERCENT AUTO 0.6 % (0.0-0.4); LYMPHOCYTES ABSOLUTE AUTO 3.3 K/mm3 (1.0-4.8); LYMPHOCYTES PERCENT AUTO 29.7 % (24.0-44.0); MEAN CORPUSCULAR HEMOGLOBIN 31.9 pg (28.0-32.0); MEAN CORPUSCULAR HGB CONC 32.2 g/dl (32.0-36.0); MEAN CORPUSCULAR VOLUME 99.2 fl (83.0-99.0); MEAN PLATELET VOLUME 9.3 fl (9.4-12.4); MONOCYTES ABSOLUTE AUTO 1.4 K/mm3 (0.0-0.8); MONOCYTES PERCENT AUTO 12.2 % (0.0-8.0); NEUTROPHILS ABSOLUTE AUTO 6.1 K/mm3 (1.8-7.7); NEUTROPHILS PERCENT AUTO 55.1 % (41.0-71.0); PLATELET COUNT,PLT 145 K/mm3 (150-400); WHITE BLOOD CELL COUNT,WBC 11.14 K/mm3 (3.9-11.3)
[2024-03-29 05:09] LABS: A/G RATIO 0.8 (1-2); ALBUMIN 2.6 g/dl (3.4-5.0); ALKALINE PHOSPHATASE 107 U/L (46-116); ANION GAP 15.7 (5-15); ASPARTATE AMNIOTRANSFERASE,AST 17 U/L (15-37); BILIRUBIN TOTAL 0.5 mg/dL (0.2-1.0); BLOOD UREA NITROGEN,BUN 21 mg/dL (7-18); BUN/CREATININE RATIO 23.3 (14-18); CALCIUM 8.5 mg/dL (8.5-10.1); CARBON DIOXIDE,CO2 23 mEq/L (21-32); CHLORIDE,CL 107 mEq/L (98-107); CREATININE 0.9 mg/dL (0.7-1.3); EST CRCL DRUG DOSING (CG) 58.38 mL/min; ESTIMATED GFR 86 mL/min (>60); GLUCOSE RANDOM 82 mg/dL (70-99); MAGNESIUM 1.9 mg/dL (1.8-2.4); POTASSIUM,K 3.7 mEq/L (3.5-5.1); PROTEIN TOTAL,TP 5.8 g/dl (6.4-8.2); SODIUM,NA 142 mEq/L (136-145)
[2024-03-29 05:41] LABS: ALANINE AMINOTRANSFERASE,ALT < 6 U/L (16-63)
[2024-03-29 06:54] LABS: SLIDE REVIEW ABNORMAL SMEAR
[2024-03-29 08:09] VITALS: PULSE 62
[2024-03-29] MEDS: Potassium Chloride 20 MEQ Tab.ER PO ONE (09:15)
[2024-03-29 10:21] VITALS: BP 125/84
== END 2024-03-29 10:03 | DRG 872 ==
LOC: JD.ED 14:20 → JD.ICU 22:09
PROVIDERS: ADMIT Student in an Organized Health Care Education/Training Program; ATTEND Student in an Organized Health Care Education/Training Program
DX: A41.51 Sepsis due to Escherichia coli [E. coli] (principal); D72.829 Elevated white blood cell count, unspecified; R54 Age-related physical debility; N30.00 Acute cystitis without hematuria; Z79.890 Hormone replacement therapy; K55.1 Chronic vascular disorders of intestine; R65.20 Severe sepsis without septic shock; E03.9 Hypothyroidism, unspecified; G20.A1 Parkinson's disease without dyskinesia, without mention of fluctuations; K43.9 Ventral hernia without obstruction or gangrene; N40.0 Benign prostatic hyperplasia without lower urinary tract symptoms; G47.33 Obstructive sleep apnea (adult) (pediatric); H54.7 Unspecified visual loss; F32.A Depression, unspecified; G89.29 Other chronic pain; M54.50 Low back pain, unspecified; N28.9 Disorder of kidney and ureter, unspecified; N20.0 Calculus of kidney; Z79.1 Long term (current) use of non-steroidal anti-inflammatories (NSAID); Z99.3 Dependence on wheelchair; Z79.899 Other long term (current) drug therapy; Z98.49 Cataract extraction status, unspecified eye; Z98.890 Other specified postprocedural states
CPT/HCPCS: 0241U; 36415; 71045; 74175; 74177; 80053; 81001; 82550; 83605; 83735; 84100; 84443; 85025; 86140; 87040; 87086; 87641; 93005; 94660; 94761; 96374; 97162; 97530; 99285; 87088; 87186; A9270-GY; C1758; J0696; J1650; J2060; J2543; J3475; J3490; J7030; J7120; Q9967

== ENCOUNTER 2024-04-09 07:48 | Inpatient (IN) | payer MEDICARE, BC ==
[2024-04-09] MEDS ORDERED: Sodium Chloride 0.9% 10 ML Syringe FLUSH PRN ×2 (08:05→14:26)
[2024-04-09] MEDS: Sodium Chloride 0.9% 1,000 ML IV STA (08:16)
[2024-04-09] MEDS: HYDROmorphone 0.5 MG/0.5 ML Syringe IVPUSH ONE ×2 (08:16→10:48)
[2024-04-09] MEDS: Ondansetron 4 MG/2 ML SDV IVPUSH ONE (08:16)
[2024-04-09 08:40] LABS: BASOPHILS PERCENT AUTO 0.2 % (0.0-1.0); EOSINOPHILS PERCENT AUTO 0.2 % (0.0-6.0); HEMATOCRIT 44.5 % (42.0-52.0); HEMOGLOBIN 14.4 gm/dl (14.0-18.0); IMMATURE GRAN ABSOLUTE AUTO 0.11 K/mm3 (0.00-0.05); IMMATURE GRAN PERCENT AUTO 0.7 % (0.0-0.4); LYMPHOCYTES ABSOLUTE AUTO 2.5 K/mm3 (1.0-4.8); LYMPHOCYTES PERCENT AUTO 15.4 % (24.0-44.0); MEAN CORPUSCULAR HEMOGLOBIN 31.3 pg (28.0-32.0); MEAN CORPUSCULAR HGB CONC 32.4 g/dl (32.0-36.0); MEAN CORPUSCULAR VOLUME 96.7 fl (83.0-99.0); MEAN PLATELET VOLUME 8.4 fl (9.4-12.4); MONOCYTES ABSOLUTE AUTO 0.9 K/mm3 (0.0-0.8); MONOCYTES PERCENT AUTO 5.8 % (0.0-8.0); NEUTROPHILS ABSOLUTE AUTO 12.6 K/mm3 (1.8-7.7); NEUTROPHILS PERCENT AUTO 77.7 % (41.0-71.0); PLATELET COUNT,PLT 189 K/mm3 (150-400); WHITE BLOOD CELL COUNT,WBC 16.19 K/mm3 (3.9-11.3)
[2024-04-09 09:04] LABS: A/G RATIO 1.1 (1-2); ALBUMIN 3.8 g/dl (3.4-5.0); ANION GAP 14.3 (5-15); BILIRUBIN TOTAL 0.8 mg/dL (0.2-1.0); BUN/CREATININE RATIO 20.8 (14-18); CALCIUM 10.1 mg/dL (8.5-10.1); CREATININE 1.3 mg/dL (0.7-1.3); EST CRCL DRUG DOSING (CG) 40.71 mL/min; POTASSIUM,K 4.3 mEq/L (3.5-5.1); PROTEIN TOTAL,TP 7.2 g/dl (6.4-8.2)
[2024-04-09] MEDS: Sodium Chloride 0.9% 10 ML Syringe FLUSH ONE (09:26)
[2024-04-09] MEDS: Iopamidol 612 MG/ML 100 ML Bottle IVPUSH ONE (09:26)
[2024-04-09 10:11] LABS: LACTIC ACID 1.3 mmol/L (0.4-2.0)
[2024-04-09] MEDS: Metoclopramide 10 MG/2 ML SDV IVPUSH ONE (10:48)
[2024-04-09] MEDS: Lidocaine 2% 11 ML Jelly Filled Syringe MUCMEM STA (12:12)
[2024-04-09] MEDS: Benzocaine 20% Topical Spray UD MUCMEM ONE (12:12)
[2024-04-09] MEDS ORDERED: Succinylcholine 200 MG/10 ML MDV ONE (12:23)
[2024-04-09] MEDS ORDERED: Propofol 200 MG/20 ML SDV ONE (12:23)
[2024-04-09] MEDS ORDERED: Rocuronium 50 MG/5 ML Vial ONE (12:23)
[2024-04-09] MEDS ORDERED: fentaNYL 100 MCG/2 ML SDV ONE (12:23)
[2024-04-09] MEDS ORDERED: Lidocaine 2% 5 ML SDV ONE (12:24)
[2024-04-09 12:29] LABS: APPEARANCE,URINE CLEAR (Clear); BILIRUBIN,URINE NEGATIVE (Negative); COLOR,URINE YELLOW (Yellow); GLUCOSE,URINE NEGATIVE (Negative); KETONES,URINE NEGATIVE (Negative); LEUKOCYTE ESTERASE,URINE 1+ (Negative); NITRITE,URINE NEGATIVE (Negative); OCCULT BLOOD,URINE TRACE-INTACT (Negative); PROTEIN,URINE 1+ (Negative); UROBILINOGEN,URINE 0.2 (0.2-1.0)
[2024-04-09 12:36] LABS: RBC,URINE 0-5 /hpf (0-5)
[2024-04-09 12:37] LABS: BACTERIA,URINE FEW /hpf (FEW); EPITHELIAL CELLS,URINE 0-5 /hpf (0-5); MUCUS,URINE FEW /hpf (FEW)
[2024-04-09] MEDS: Lactated Ringers 1,000 ML IV SCH ×2 (12:49→23:00)
[2024-04-09] MEDS ORDERED: Ondansetron 4 MG Tab.DIS PO PRN (13:49)
[2024-04-09] MEDS ORDERED: Calcium Carbonate 500 MG Tab.Chew PO PRN (13:56)
[2024-04-09] MEDS ORDERED: Bisacodyl 10 MG Supp RECTAL PRN (13:56)
[2024-04-09] MEDS ORDERED: Benzocaine/Cetylpyridinium/Menthol Lozenge MUCMEM PRN (13:56)
[2024-04-09] MEDS ORDERED: Melatonin 3 MG Tab PO PRN (13:56)
[2024-04-09] MEDS ORDERED: Lactated Ringers 1,000 ML IV SCH (14:00)
[2024-04-09] MEDS ORDERED: Ondansetron 4 MG/2 ML SDV IVPUSH PRN (14:26)
[2024-04-09] MEDS ORDERED: HYDROmorphone 0.5 MG/0.5 ML Syringe IVPUSH PRN (14:26)
[2024-04-09] MEDS ORDERED: fentaNYL 100 MCG/2 ML SDV IVPUSH PRN (14:26)
[2024-04-09] MEDS: Acetaminophen/oxyCODONE 325-5 MG Tab PO SCH (15:40)
[2024-04-09] MEDS: Carbidopa/Levodopa 10-100 MG Tab PO SCH (15:40)
[2024-04-09] MEDS: Sodium Chloride 0.9% 10 ML Syringe FLUSH SCH (20:26)
[2024-04-09] MEDS: Aspirin 81 MG Tab.Chew PO SCH (20:27)
[2024-04-10 05:32] LABS: BASOPHILS PERCENT AUTO 0.3 % (0.0-1.0); EOSINOPHILS ABSOLUTE AUTO 0.1 K/mm3 (0.0-0.4); EOSINOPHILS PERCENT AUTO 1.3 % (0.0-6.0); HEMATOCRIT 37.3 % (42.0-52.0); IMMATURE GRAN ABSOLUTE AUTO 0.06 K/mm3 (0.00-0.05); IMMATURE GRAN PERCENT AUTO 0.5 % (0.0-0.4); LYMPHOCYTES ABSOLUTE AUTO 3.1 K/mm3 (1.0-4.8); LYMPHOCYTES PERCENT AUTO 27.9 % (24.0-44.0); MEAN CORPUSCULAR HEMOGLOBIN 31.6 pg (28.0-32.0); MEAN CORPUSCULAR HGB CONC 31.9 g/dl (32.0-36.0); MEAN CORPUSCULAR VOLUME 99.2 fl (83.0-99.0); MEAN PLATELET VOLUME 8.4 fl (9.4-12.4); MONOCYTES ABSOLUTE AUTO 1.1 K/mm3 (0.0-0.8); MONOCYTES PERCENT AUTO 9.5 % (0.0-8.0); NEUTROPHILS ABSOLUTE AUTO 6.7 K/mm3 (1.8-7.7); NEUTROPHILS PERCENT AUTO 60.5 % (41.0-71.0); PLATELET COUNT,PLT 146 K/mm3 (150-400); RED BLOOD CELL COUNT 3.76 M/mm3 (4.52-5.90); WHITE BLOOD CELL COUNT,WBC 11.02 K/mm3 (3.9-11.3)
[2024-04-10] MEDS: Levothyroxine 100 MCG Tab PO SCH (05:38)
[2024-04-10 05:43] LABS: HEMOGLOBIN 11.9 gm/dl (14.0-18.0)
[2024-04-10 05:54] LABS: ANION GAP 10.2 (5-15); CALCIUM 8.8 mg/dL (8.5-10.1); EST CRCL DRUG DOSING (CG) 50.05 mL/min; MAGNESIUM 1.7 mg/dL (1.8-2.4); PHOSPHORUS 3.2 mg/dL (2.6-4.7); POTASSIUM,K 4.2 mEq/L (3.5-5.1)
[2024-04-10 06:03] LABS: SLIDE REVIEW ABNORMAL SMEAR
[2024-04-10] MEDS: Amantadine 100 MG Cap PO SCH (08:21)
[2024-04-10] MEDS: Sertraline 50 MG Tab PO SCH (08:21)
[2024-04-10] MEDS: Enoxaparin 40 MG/0.4 ML Syringe SUBCUT SCH (08:21)
[2024-04-10] MEDS: ENTACAPONE 200 MG PO SCH (09:14)
[2024-04-10] MEDS: Diatrizoate Meglumine/Diatrizoate Sodium 37% 120 ML Bottle PO ONE (18:33)
[2024-04-11] MEDS: Amantadine 100 MG Cap PO SCH (09:25)
[2024-04-11] MEDS: Bisacodyl 10 MG Supp RECTAL ONE (09:52)
[2024-04-11 14:08] VITALS: BP 122/83; PULSE 88
== END 2024-04-11 14:30 | disposition home or self-care (01) | DRG 390 ==
LOC: JD.ED 07:48 → JD.SDS 12:10 → JD.MS 12:11
PROVIDERS: ADMIT Surgery; ATTEND Surgery
PROC: 0DH68UZ Insertion of Feeding Device into Stomach, Via Natural or Artificial Opening Endoscopic (ICD-10-PCS; principal; 2024-04-09 13:00)
DX: K56.609 Unspecified intestinal obstruction, unspecified as to partial versus complete obstruction (principal); H54.7 Unspecified visual loss; H91.90 Unspecified hearing loss, unspecified ear; G47.30 Sleep apnea, unspecified; Z79.890 Hormone replacement therapy; F32.A Depression, unspecified; G20.A1 Parkinson's disease without dyskinesia, without mention of fluctuations; E03.9 Hypothyroidism, unspecified; Z98.49 Cataract extraction status, unspecified eye; Z98.890 Other specified postprocedural states; Z87.01 Personal history of pneumonia (recurrent); Z79.1 Long term (current) use of non-steroidal anti-inflammatories (NSAID); Z79.82 Long term (current) use of aspirin; Z79.899 Other long term (current) drug therapy; Z79.2 Long term (current) use of antibiotics; Z87.891 Personal history of nicotine dependence; Z87.442 Personal history of urinary calculi
CPT/HCPCS: 36415; 74177; 80053; 83605; 83690; 84484; 85025; 93005; 96361; 96374; 96375; 96376; 99285; J2405; J2765; J7030; Q9967; 00731; 80048; 81001; 82947; 83735; 84100; 87641; 93010; 94761; 99100; 99140; A9270-GY; J0330; J1650; J2704; J3010; J3490; J7120; Q9963

== ENCOUNTER 2024-04-27 10:52 | Emergency (ER) | payer MEDICARE, BC ==
[2024-04-27 11:04] VITALS: PULSE 56
[2024-04-27] MEDS: Sodium Chloride 0.9% 1,000 ML IV STA (11:35)
[2024-04-27] MEDS: Sodium Chloride 0.9% 10 ML Syringe FLUSH PRN (11:35)
[2024-04-27 11:48] LABS: BASOPHILS PERCENT AUTO 0.2 % (0.0-1.0); EOSINOPHILS ABSOLUTE AUTO 0.1 K/mm3 (0.0-0.4); EOSINOPHILS PERCENT AUTO 0.4 % (0.0-6.0); HEMATOCRIT 40.1 % (42.0-52.0); HEMOGLOBIN 13.2 gm/dl (14.0-18.0); IMMATURE GRAN ABSOLUTE AUTO 0.05 K/mm3 (0.00-0.05); IMMATURE GRAN PERCENT AUTO 0.4 % (0.0-0.4); LYMPHOCYTES ABSOLUTE AUTO 2.9 K/mm3 (1.0-4.8); LYMPHOCYTES PERCENT AUTO 23.7 % (24.0-44.0); MEAN CORPUSCULAR HEMOGLOBIN 31.4 pg (28.0-32.0); MEAN CORPUSCULAR HGB CONC 32.9 g/dl (32.0-36.0); MEAN CORPUSCULAR VOLUME 95.5 fl (83.0-99.0); MEAN PLATELET VOLUME 8.8 fl (9.4-12.4); MONOCYTES ABSOLUTE AUTO 1.1 K/mm3 (0.0-0.8); MONOCYTES PERCENT AUTO 8.7 % (0.0-8.0); NEUTROPHILS ABSOLUTE AUTO 8.1 K/mm3 (1.8-7.7); NEUTROPHILS PERCENT AUTO 66.6 % (41.0-71.0); PLATELET COUNT,PLT 102 K/mm3 (150-400); WHITE BLOOD CELL COUNT,WBC 12.13 K/mm3 (3.9-11.3)
[2024-04-27 11:56] LABS: A/G RATIO 1.1 (1-2); ALBUMIN 3.4 g/dl (3.4-5.0); ANION GAP 12.9 (5-15); BILIRUBIN TOTAL 1.1 mg/dL (0.2-1.0); C-REACTIVE PROTEIN 10.66 mg/dL (<0.30); CALCIUM 8.9 mg/dL (8.5-10.1); EST CRCL DRUG DOSING (CG) 64.67 mL/min; POTASSIUM,K 3.9 mEq/L (3.5-5.1); PROTEIN TOTAL,TP 6.4 g/dl (6.4-8.2)
[2024-04-27] MEDS: Lidocaine 2% 11 ML Jelly Filled Syringe MUCMEM ONE (13:30)
[2024-04-27 13:48] LABS: LACTIC ACID 0.9 mmol/L (0.4-2.0)
[2024-04-27] MEDS ORDERED: cefTRIAXone 2 GM in Sodium Chloride 0.9% 100 ML IV ONE (13:53)
[2024-04-27] MEDS: cefTRIAXone 2 GM Vial IVPUSH ONE (14:21)
[2024-04-27 14:29] LABS: APPEARANCE,URINE SLT CLOUDY (Clear); BILIRUBIN,URINE 1+ (Negative); COLOR,URINE AMBER (Yellow); GLUCOSE,URINE TRACE (Negative); KETONES,URINE TRACE (Negative); LEUKOCYTE ESTERASE,URINE NEGATIVE (Negative); NITRITE,URINE NEGATIVE (Negative); OCCULT BLOOD,URINE 3+ (Negative); PH,URINE 5.5 (5.0-8.0); PROTEIN,URINE 2+ (Negative); UROBILINOGEN,URINE 0.2 (0.2-1.0)
[2024-04-27 14:34] LABS: BACTERIA,URINE MODERATE /hpf (FEW); MUCUS,URINE FEW /hpf (FEW); RBC,URINE 30-40 /hpf (0-5); SQUAMOUS EPITHELIAL CELLS,UR 0-5 /hpf (0-5)
[2024-04-27 15:05] VITALS: BP 136/75
== END 2024-04-27 16:00 ==
LOC: JD.ED 10:52
DX: J10.00 Influenza due to other identified influenza virus with unspecified type of pneumonia (principal); E03.9 Hypothyroidism, unspecified; Z79.890 Hormone replacement therapy; Z79.899 Other long term (current) drug therapy; Z79.82 Long term (current) use of aspirin
CPT/HCPCS: 36415; 51702; 71045; 80053; 81001; 83605; 85025; 86140; 87040; 93005; 96361; 96374; 99285; A9270; C1758; J0696; J7030; 93010; 99284

== ENCOUNTER 2024-06-02 13:41 | Emergency (ER) | payer MEDICARE, BC ==
[2024-06-02 15:05] VITALS: PULSE 54
[2024-06-02] MEDS ORDERED: Sodium Chloride 0.9% 1,000 ML IV SCH (17:15)
[2024-06-02] MEDS: Ketorolac 30 MG/ML SDV IVPUSH ONE (17:22)
[2024-06-02] MEDS: Sodium Chloride 0.9% 500 ML IV SCH (17:26)
[2024-06-02 17:39] LABS: BASOPHILS ABSOLUTE AUTO 0.1 K/mm3 (0.0-0.2); BASOPHILS PERCENT AUTO 0.1 % (0.0-1.0); EOSINOPHILS ABSOLUTE AUTO 0.1 K/mm3 (0.0-0.4); IMMATURE GRAN ABSOLUTE AUTO 2.07 K/mm3 (0.00-0.05); IMMATURE GRAN PERCENT AUTO 1.3 % (0.0-0.4); LYMPHOCYTES ABSOLUTE AUTO 81.8 K/mm3 (1.0-4.8); LYMPHOCYTES PERCENT AUTO 52.7 % (24.0-44.0); MEAN CORPUSCULAR HEMOGLOBIN 30.6 pg (28.0-32.0); MEAN CORPUSCULAR HGB CONC 32.6 g/dl (32.0-36.0); MEAN CORPUSCULAR VOLUME 94.1 fl (83.0-99.0); MEAN PLATELET VOLUME 9.2 fl (9.4-12.4); MONOCYTES ABSOLUTE AUTO 61.6 K/mm3 (0.0-0.8); MONOCYTES PERCENT AUTO 39.7 % (0.0-8.0); NEUTROPHILS ABSOLUTE AUTO 9.6 K/mm3 (1.8-7.7); NEUTROPHILS PERCENT AUTO 6.2 % (41.0-71.0); NRBC PERCENT 0.1 % (0.0-0.2); PLATELET COUNT,PLT 152 K/mm3 (150-400); RED BLOOD CELL COUNT 4.57 M/mm3 (4.52-5.90)
[2024-06-02 18:07] LABS: A/G RATIO 1.3 (1-2); ALANINE AMINOTRANSFERASE,ALT 19 U/L (16-63); ALBUMIN 4.1 g/dl (3.4-5.0); ALKALINE PHOSPHATASE 242 U/L (46-116); ANION GAP 15.3 (5-15); ASPARTATE AMNIOTRANSFERASE,AST 57 U/L (15-37); BILIRUBIN TOTAL 0.8 mg/dL (0.2-1.0); BLOOD UREA NITROGEN,BUN 23 mg/dL (7-18); BUN/CREATININE RATIO 15.3 (14-18); CALCIUM 10.3 mg/dL (8.5-10.1); CARBON DIOXIDE,CO2 28 mEq/L (21-32); CHLORIDE,CL 103 mEq/L (98-107); CREATININE 1.5 mg/dL (0.7-1.3); ESTIMATED GFR 47 mL/min (>60); GLUCOSE RANDOM 90 mg/dL (70-99); LIPASE 14 U/L (16-77); POTASSIUM,K 4.3 mEq/L (3.5-5.1); PROTEIN TOTAL,TP 7.3 g/dl (6.4-8.2); SODIUM,NA 142 mEq/L (136-145); TROPONIN I HIGH SENSITIVITY 10 pg/mL (<=76)
[2024-06-02] MEDS: Iopamidol 612 MG/ML 100 ML Bottle IVPUSH ONE (18:52)
[2024-06-02] MEDS: Sodium Chloride 0.9% 10 ML Syringe FLUSH PRN (18:52)
[2024-06-02] MEDS: Sodium Chloride 0.9% 1,000 ML IV SCH (20:51)
[2024-06-02] MEDS: fentaNYL 100 MCG/2 ML SDV IVPUSH ONE (20:51)
[2024-06-02] MEDS: Piperacillin/Tazobactam 4.5 GM in Sodium Chloride 0.9% 100 ML IV ONE (21:33)
[2024-06-02] MEDS ORDERED: Naloxone 0.4 MG/ML SDV IVPUSH PRN (22:18)
[2024-06-02] MEDS: VANCOmycin 1.25 GM/250 ML 1.25 GM in Premix Bag 1 BAG IV ONE (22:35)
[2024-06-02 22:39] VITALS: BP 113/59
[2024-06-02] MEDS: fentaNYL 100 MCG/2 ML SDV IVPUSH PRN (22:41)
== END 2024-06-03 00:10 ==
LOC: JD.ED 13:41
DX: K56.609 Unspecified intestinal obstruction, unspecified as to partial versus complete obstruction (principal); K63.1 Perforation of intestine (nontraumatic); D72.829 Elevated white blood cell count, unspecified; R94.31 Abnormal electrocardiogram [ECG] [EKG]; E03.9 Hypothyroidism, unspecified; Z79.82 Long term (current) use of aspirin; Z79.890 Hormone replacement therapy; Z79.899 Other long term (current) drug therapy
CPT/HCPCS: 36415; 71045; 71045-26; 74177; 74177-26; 80053; 83605; 83690; 84484; 85025; 87040; 93005; 96361; 96365; 96366; 96367; 96375; 96376; 99285-25; J1885; J2543; J3010; J3372; J7030; Q9967